=== PATIENT | female | born 1930 | race Caucasian/White ===

== ENCOUNTER → 2016-10-08 | Outpatient (CLI) | payer BC ==
[~2016-10-08] MED LIST: CHOL100027 PO; CYAN100020 PO; LEVO25TA5 PO; LNX125 PO; METF-384 PO; MULTTAB58 PO; TPRSR50 PO; XRL10 PO
[2016-10-09 05:56] LABS: ESTIMATED AVERAGE GLUCOSE 137 mg/dl; HA1C FLAG Normal (Normal)
== END | disposition home or self-care (01) ==
LOC: C.LABBC 14:14
PROVIDERS: ATTEND Internal Medicine Geriatric Medicine
DX: E03.9 Hypothyroidism, unspecified (principal); E11.29 Type 2 diabetes mellitus with other diabetic kidney complication

== ENCOUNTER → 2016-10-31 | Outpatient (CLI) | payer BC ==
[2016-10-31 11:15] LABS: BASO ABS # 0.08 K/uL (0-0.2); COMPLETE YES; EOS % 3.9 %; HEMATOCRIT 29.4 % (37-47); IG% 0.2 %; IMMATURE RETIC FRACTION 18.6 % (3.0-15.9); LYMPH % 41.4 %; LYMPH ABS # 3.44 K/uL (1.2-3.4); MEAN CELL VOLUME 89.4 fL (80-100); MEAN CORPUSCULAR HEMOGLOBIN 28.9 pg (25-34); MEAN CORPUSCULAR HGB CONC 32.3 g/dl (32-36); MEAN PLATELET VOLUME 8.8 fL (7.4-10.4); MONO % 14.6 %; NEUT % 38.9 %; PLATELET COUNT 179 K/uL (130-400); RED BLOOD COUNT 3.29 M/uL (4.2-5.4); RETHE 31.2 PG (28.2-36.6); WHITE BLOOD COUNT 8.31 K/uL (4.8-10.8)
[2016-10-31 11:23] LABS: BLOOD UREA NITROGEN 23 mg/dl (7-18); BUN/CREATININE RATIO 20.5 (10-20); CALCIUM 9.3 mg/dl (8.5-10.1); CARBON DIOXIDE 27 mmol/L (21-32); CHLORIDE 103 mmol/L (98-107); GLUCOSE 158 mg/dl (70-99); POTASSIUM 4.1 mmol/L (3.5-5.1); SODIUM 137 mmol/L (136-145)
[2016-10-31 12:05] LABS: FERRITIN 41.3 ng/ml (8.0-388.0)
[2016-11-03 12:37] LABS: FREE KAPPA 26.6 MG/L (3.3-19.4); FREE KAPPA/LAMBDA RATIO 0.36 (0.26-1.65); FREE LAMBDA 74.2 MG/L (5.7-26.3)
--- NOTE | 2016-11-04 13:42 | CODING QUERY MEDICAL NECESSITY ---
SUPPORTING DIAGNOSIS NEEDED A supporting diagnosis is required for the test/procedure performed on this patient in order for us to be reimbursed by the patient's insurance. Please provide a supporting diagnosis for the following test/procedure listed below next to the test name along with your signature. *If there is no additional diagnosis for this patient that would support the following test/procedure please document that below next to the test/procedure. Test(s)/Procedure(s) that require a supporting diagnosis: DOS 10/31 * Vitamin B12 DIAGNOSIS: Provider Signature: Date: Thank you Shira Barron Health Information Management Once completed, please kindly fax back to [phone] For questions please call [phone]
== END | disposition home or self-care (01) ==
LOC: C.LABBC 08:54
PROVIDERS: ATTEND Nurse Practitioner
DX: C85.10 Unspecified B-cell lymphoma, unspecified site (principal); E03.9 Hypothyroidism, unspecified; N18.9 Chronic kidney disease, unspecified; D51.9 Vitamin B12 deficiency anemia, unspecified

== ENCOUNTER → 2017-01-21 | Outpatient (CLI) | payer BC | LOC: C.LAB1850 16:36 | PROVIDERS: ATTEND Internal Medicine Geriatric Medicine | DX: E03.9 Hypothyroidism, unspecified (principal) ==

== ENCOUNTER → 2017-02-03 | Outpatient (CLI) | payer BC ==
[2017-02-03 10:51] LABS: BASO % 1.3 %; COMPLETE YES; EOS % 4.7 %; HEMATOCRIT 30.2 % (37-47); IG% 0.1 %; LYMPH % 43.8 %; LYMPH ABS # 3.38 K/uL (1.2-3.4); MEAN CELL VOLUME 94.1 fL (80-100); MEAN CORPUSCULAR HEMOGLOBIN 29.3 pg (25-34); MEAN CORPUSCULAR HGB CONC 31.1 g/dl (32-36); MEAN PLATELET VOLUME 8.7 fL (7.4-10.4); NEUT % 37.1 %; PLATELET COUNT 165 K/uL (130-400); RED BLOOD COUNT 3.21 M/uL (4.2-5.4); WHITE BLOOD COUNT 7.71 K/uL (4.8-10.8)
[2017-02-03 11:18] LABS: ALT/SGPT 13 U/L (12-78); AST/SGOT 12 U/L (15-37); BLOOD UREA NITROGEN 18 mg/dl (7-18); BUN/CREATININE RATIO 15.2 (10-20); CARBON DIOXIDE 26 mmol/L (21-32); CHLORIDE 105 mmol/L (98-107); GLUCOSE 171 mg/dl (70-99); POTASSIUM 4.5 mmol/L (3.5-5.1); SODIUM 140 mmol/L (136-145)
[2017-02-03 11:22] LABS: CALCIUM 9.3 mg/dl (8.5-10.1)
[2017-02-03 11:56] LABS: ALB/GLOB RATIO 0.5 (0.9-2); ALKALINE PHOSPHATASE 90 U/L (45-117)
[2017-02-06 05:36] LABS: ALBUMIN 3.2 G/DL (3.8-4.8); ALBUMIN % 32.73 %; ALPHA-2-GLOBULIN % 18.61 %; BETA GLOBULIN % 16.85 %; CREATININE UR 159 MG/DL (20-320); FREE KAPPA 29.8 MG/L (3.3-19.4); FREE KAPPA/LAMBDA RATIO 0.39 (0.26-1.65); FREE LAMBDA 76.6 MG/L (5.7-26.3); GAMMA GLOBULIN 0.9 G/DL (0.8-1.7); GAMMA GLOBULIN % 29.33 %; IMMUNOFIXATION IGA SERUM 94 MG/DL (81-463); IMMUNOFIXATION IGG SERUM 946 MG/DL (694-1618); IMMUNOFIXATION IGM SERUM 2175 MG/DL (48-271); MONOCLONAL PROTEIN BAND 1 1.6 G/DL (NOT DETECTED); MONOCLONAL PROTEIN BAND 2 0.3 G/DL (NOT DETECTED); TOTAL PROTEIN 7.6 G/DL (6.2-8.3)
--- NOTE | 2017-02-09 10:27 | CODING QUERY MEDICAL NECESSITY ---
SUPPORTING DIAGNOSIS NEEDED Yasir KIRKLAND, A supporting diagnosis is required for the test/procedure performed on this patient in order for us to be reimbursed by the patient's insurance. Please provide a supporting diagnosis for the following test/procedure listed below next to the test name along with your signature. *If there is no additional diagnosis for this patient that would support the following test/procedure please document that below next to the test/procedure. Test(s)/Procedure(s) that require a supporting diagnosis: * ([id number]) B12 VITAMIN LEVEL DIAGNOSIS: DATE OF SERVICE: 02/03/17 Provider Signature: Date: Thank you Justo Mckinnon Health Information Management Once completed, please kindly fax back to [phone] For questions please call [phone]
== END | disposition home or self-care (01) ==
LOC: C.LABBC 08:33
PROVIDERS: ATTEND Nurse Practitioner
DX: C85.10 Unspecified B-cell lymphoma, unspecified site (principal); D64.9 Anemia, unspecified

== ENCOUNTER → 2017-04-16 | Outpatient (CLI) | payer BC ==
[2017-04-16 17:07] LABS: BLOOD UREA NITROGEN 23 mg/dl (7-18); BUN/CREATININE RATIO 17.7 (10-20); CALCIUM 9.5 mg/dl (8.5-10.1); CARBON DIOXIDE 27 mmol/L (21-32); CHLORIDE 104 mmol/L (98-107); GLUCOSE 167 mg/dl (70-99); POTASSIUM 4.3 mmol/L (3.5-5.1); SODIUM 138 mmol/L (136-145)
[2017-04-16 17:10] LABS: HEMATOCRIT 30.3 % (37-47); MEAN CELL VOLUME 95.3 fL (80-100); MEAN CORPUSCULAR HEMOGLOBIN 29.2 pg (25-34); MEAN CORPUSCULAR HGB CONC 30.7 g/dl (32-36); MEAN PLATELET VOLUME 8.9 fL (7.4-10.4); PLATELET COUNT 180 K/uL (130-400); RED BLOOD COUNT 3.18 M/uL (4.2-5.4); WHITE BLOOD COUNT 9.57 K/uL (4.8-10.8)
[2017-04-16 17:13] LABS: URINE APPEARANCE CLEAR (CLEAR); URINE BILIRUBIN NEG (NEG); URINE COLOR DK YELLOW; URINE EPITHELIAL CELL AUTO 0-5 /lpf (0-5); URINE NITRITE POS (NEG); URINE SPECIFIC GRAVITY 1.024 (1.000-1.030); UROBILINOGEN NEG (NEG); ZZUR CULT IF INDIC CLEAN CATCH YES
[2017-04-16 17:23] LABS: MANUAL MICROSCOPIC REQUIRED? NO; REVIEW REQ? NO
[2017-04-16 18:09] LABS: BASO % 1.1 %; BASO ABS # 0.11 K/uL (0-0.2); COMPLETE YES; EOS % 2.7 %; IG% 0.2 %; LYMPH ABS # 4.88 K/uL (1.2-3.4); MONO % 14.1 %; NEUT % 30.9 %; ROULEAUX 1+
== END | disposition home or self-care (01) ==
LOC: C.LABBC 14:53
PROVIDERS: ATTEND Internal Medicine Geriatric Medicine
DX: I10 Essential (primary) hypertension (principal); E03.9 Hypothyroidism, unspecified; D64.9 Anemia, unspecified; R53.1 Weakness

== ENCOUNTER → 2017-05-12 | Outpatient (CLI) | payer BC ==
[2017-05-12 17:08] LABS: URINE APPEARANCE CLEAR (CLEAR); URINE BILIRUBIN NEG (NEG); URINE COLOR YELLOW; URINE NITRITE NEG (NEG); URINE PH 5.5 (4.5-7.5); URINE SPECIFIC GRAVITY 1.021 (1.000-1.030); UROBILINOGEN NEG (NEG)
[2017-05-12 17:09] LABS: MANUAL MICROSCOPIC REQUIRED? NO; REVIEW REQ? NO
[2017-05-13 06:22] LABS: ESTIMATED AVERAGE GLUCOSE 148 mg/dl; HA1C FLAG Normal (Normal)
== END | disposition home or self-care (01) ==
LOC: C.LABBC 13:36
PROVIDERS: ATTEND Physician Assistant
DX: Z00.00 Encounter for general adult medical examination without abnormal findings (principal); E11.9 Type 2 diabetes mellitus without complications; N39.0 Urinary tract infection, site not specified

== ENCOUNTER → 2017-08-10 | Outpatient (CLI) | payer BC ==
[2017-08-10 11:19] LABS: BASO % 1.1 %; BASO ABS # 0.09 K/uL (0-0.2); EOS % 4.8 %; HEMATOCRIT 28.3 % (37-47); IG% 0.2 %; LYMPH % 47.7 %; LYMPH ABS # 3.99 K/uL (1.2-3.4); MEAN CELL VOLUME 94.3 fL (80-100); MEAN CORPUSCULAR HEMOGLOBIN 29.3 pg (25-34); MEAN CORPUSCULAR HGB CONC 31.1 g/dl (32-36); MEAN PLATELET VOLUME 8.9 fL (7.4-10.4); MONO % 12.4 %; NEUT % 33.8 %; PLATELET COUNT 168 K/uL (130-400); WHITE BLOOD COUNT 8.36 K/uL (4.8-10.8)
[2017-08-10 11:54] LABS: ALT/SGPT 15 U/L (12-78); AST/SGOT 14 U/L (15-37); BLOOD UREA NITROGEN 18 mg/dl (7-18); BUN/CREATININE RATIO 15.6 (10-20); CALCIUM 9.1 mg/dl (8.5-10.1); CARBON DIOXIDE 28 mmol/L (21-32); CHLORIDE 100 mmol/L (98-107); CREATININE 1.18 mg/dl (0.60-1.20); GLUCOSE 152 mg/dl (70-99); POTASSIUM 4.3 mmol/L (3.5-5.1); SODIUM 136 mmol/L (136-145)
[2017-08-10 12:28] LABS: ALB/GLOB RATIO 0.5 (0.9-2); ALKALINE PHOSPHATASE 96 U/L (45-117)
[2017-08-10 13:04] LABS: COMPLETE YES
[2017-08-12 12:26] LABS: ALBUMIN 3.2 G/DL (3.8-4.8); FREE KAPPA 29.6 MG/L (3.3-19.4); FREE KAPPA/LAMBDA RATIO 0.31 (0.26-1.65); FREE LAMBDA 95.7 MG/L (5.7-26.3); GAMMA GLOBULIN 0.8 G/DL (0.8-1.7); IMMUNOFIXATION IGA SERUM 100 MG/DL (81-463); IMMUNOFIXATION IGG SERUM 894 MG/DL (694-1618); IMMUNOFIXATION IGM SERUM 2414 MG/DL (48-271); MONOCLONAL PROTEIN BAND 1 1.6 G/DL (NOT DETECTED); MONOCLONAL PROTEIN BAND 2 0.3 G/DL (NOT DETECTED); TOTAL PROTEIN 7.6 G/DL (6.2-8.3)
== END | disposition home or self-care (01) ==
LOC: C.LABBC 08:30
PROVIDERS: ATTEND Internal Medicine Hematology & Oncology
DX: C85.10 Unspecified B-cell lymphoma, unspecified site (principal)

== ENCOUNTER 2017-08-22 12:37 | Emergency (ER) | payer BC ==
[~2017-08-22] VITALS: Ht 170.2 cm; Wt 56.7 kg
[2017-08-22] MEDS ORDERED: SODIUM CHLORIDE 0.9% 1000ML 1,000 ML IV SCH ×2 (12:54→14:49)
[2017-08-22] MEDS ORDERED: SODIUM CHLORIDE 0.9% 1000ML 1,000 ML IV STA (12:54)
--- NOTE | 2017-08-22 12:55 | EMERGENCY ROOM VISIT NOTE ---
History Report prepared by Yadi: Hebert Salcedo Under the Supervision of: Dr. Dorian Raymundo M.D. First contact with patient: 12:29 Stated Complaint: STROKE SYMPTOMS History of Present Illness The patient is an 86 year old female who presents to the Emergency Room with complaints of constant stroke like symptoms occurring sometime within the last 16 hours. Per [id number], the patient's caregiver was not able to get the patient out of bed this morning 4 hours ago due to the patient's weakness. She notes that she is unsure when her symptoms began, but reports that her last known normal was last night. She states that the patient has weakness along the left side of her body, but reports that her symptoms having mildly improved. The patient denies any CP, SOB, chills, fever, and abdominal pain. She also denies that she did not fall recently. Per [id number], the patient has a history of atrial fibrillations and UTIs and is currently on Xarelto. Source of History: patient, family Onset: sometime within the last 16 hours Position: other (global) Quality: other (stroke like symptoms) Timing: constant Associated Symptoms: + weakness (along the left side of her body), No fevers , No chills, No chest pain, No SOB, No abdominal pain Review of Systems As above. All other systems reviewed were negative unless otherwise stated in history. At least 10 were reviewed Past Medical & Surgical Medical Problems: (1) Atrial fibrillation (2) Atrial fibrillation (3) Diab Luci Wo Compl, Type Ii Or Unspec Type, Not Uncntrld (4) Dizziness (5) Dizziness (6) Hyperlipidemia Nec/Nos (7) Hypertension Nos (8) Hypothyroidism Nos (9) IgM lambda paraproteinemia (10) Neck pain (11) Non-Hodgkin lymphoma (12) Paraproteinemia Nec (13) Pre-syncope (14) Psychosis Nos (15) SSS (sick sinus syndrome) (16) Stroke (17) Syncope (18) Syncope (19) UTI (urinary tract infection) Old medical records were reviewed. Nurse's notes were reviewed and I agree with. Family History Insignificant due to old age Social History Smoking Status: Never Smoker Drug Use: none Marital Status: Housing Status: lives alone Occupation Status: retired Current/Historical Medications Scheduled Cholecalciferol (Vitamin D 1000 Unit), 1,000 INTER.UNIT PO DAILY Cyanocobalamin (Vitamin B12), 1,000 MCG PO QAM Digoxin (Digoxin), 1 TAB PO QPM Levothyroxine Sodium (Levothyroxine Sodium), 1 TAB PO DAILYBB Metformin Hcl (Glucophage), 500 MG PO BID Metoprolol Succinate (Metoprolol Succinate ER), 50 MG PO BID Multiple Vitamin (Multivitamin), 1 TAB PO DAILY Rivaroxaban (Xarelto), 15 MG PO QPM Allergies Coded Allergies: Celecoxib (Verified Allergy, Unknown, Unknown, 08/13/16) Physical Exam Vital Signs Date Time Temp Pulse Resp B/P (MAP) Pulse Ox O2 Delivery O2 Flow Rate FiO2 08/22/17 14:08 65 17 155/60 96 Room Air 08/22/17 13:13 36.6 71 16 128/55 98 Room Air 08/22/17 13:13 98 Room Air 08/22/17 12:51 86 Physical Exam General: Non-ill appearing 86 year old female in no acute distress. HEENT: Normal cephalic atraumatic. Pupils are equal round and reactive to light. Sclerae anicteric. Extraocular movements are intact. Oropharynx is pink with moist mucous membranes. No swelling of the mouth lips or tongue.Baseline left eye weakness. Mild conjunctival injection with a surgical pupil on the left Neck: Supple with a midline trachea. No meningeal signs or stiffness, no JVD or bruits. No Stridor. Chest: Clear to auscultation bilaterally. No wheezes or rhonchi. No increased work of breathing. Heart: regular rate and rhythm. Abdomen: Soft nontender, nondistended without rebound guarding or rigidity. Extremities: No cyanosis clubbing or edema. No calf tenderness or assymetry. 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 Spine/Back. Non tender to palpation. No CVA tenderness Skin: Good turgor without rashes. Neurologic exam: Cranial nerves two through 12 are intact. Motor and sensation are intact and symmetrical throughout. Normal speech, alert and oriented x3. Medical Decision & Procedures ER Provider Diagnostic Interpretation: Radiology results as stated below per my review and radiologist interpretation: HEAD CT NONCONTRAST Findings: The paranasal sinuses and mastoid air cells are clear. The calvarium and skull base are intact. There is no mass, hematoma, midline shift, acute infarct. White matter hypodensity is nonspecific but suggestive of microvascular ischemic change. The ventricles and sulci demonstrate mild age-related involutional changes. Impression: No significant change compared to the prior study. No acute intracranial abnormality. Electronically signed by: Jose Moreno M.D. 08/22/2017 1:28 PM CHEST ONE VIEW PORTABLE FINDINGS: Left-sided dual-chamber pacemaker. The heart remains borderline enlarged. No pleural effusions. No pneumothorax. Mild diffuse interstitial thickening, unchanged. No new focal lung consolidations to suggest pneumonia. No evidence for pulmonary edema. IMPRESSION: Stable chronic changes as described above. No acute process within the chest. Electronically signed by: Jose Moreno M.D. 08/22/2017 2:24 PM Laboratory Results 08/22/17 13:18 Red Blood Count 2.78, Mean Corpuscular Volume 93.5, Mean Corpuscular Hemoglobin 29.1, Mean Corpuscular Hemoglobin Concent 31.2, Mean Platelet Volume 9.3, Neutrophils (%) (Auto) 51.0, Lymphocytes (%) (Auto) 36.9, Monocytes (%) (Auto) 10.2, Eosinophils (%) (Auto) 1.2, Basophils (%) (Auto) 0.6, Neutrophils # (Auto ) 3.93, Lymphocytes # (Auto) 2.85, Monocytes # (Auto) 0.79, Eosinophils # (Auto ) 0.09, Basophils # (Auto) 0.05 08/22/17 13:18 Test 08/22/17 13:18 08/22/17 14:05 White Blood Count 7.72 K/uL (4.8-10.8) Red Blood Count 2.78 M/uL (4.2-5.4) Hemoglobin 8.1 g/dL (12.0-16.0) Hematocrit 26.0 % (37-47) Mean Corpuscular Volume 93.5 fL (80-100) Mean Corpuscular Hemoglobin 29.1 pg (25-34) Mean Corpuscular Hemoglobin Concent 31.2 g/dl (32-36) Platelet Count 151 K/uL (130-400) Mean Platelet Volume 9.3 fL (7.4-10.4) Neutrophils (%) (Auto) 51.0 % Lymphocytes (%) (Auto) 36.9 % Monocytes (%) (Auto) 10.2 % Eosinophils (%) (Auto) 1.2 % Basophils (%) (Auto) 0.6 % Neutrophils # (Auto) 3.93 K/uL (1.4-6.5) Lymphocytes # (Auto) 2.85 K/uL (1.2-3.4) Monocytes # (Auto) 0.79 K/uL (0.11-0.59) Eosinophils # (Auto) 0.09 K/uL (0-0.5) Basophils # (Auto) 0.05 K/uL (0-0.2) RDW Standard Deviation 59.0 fL (36.4-46.3) RDW Coefficient of Variation 17.3 % (11.5-14.5) Immature Granulocyte % (Auto) 0.1 % Immature Granulocyte # (Auto) 0.01 K/uL (0.00-0.02) Red Blood Cell Morphology Unremarkable Anion Gap 3.0 mmol/L (3-11) Est Creatinine Clear Calc Drug Dose 31.9 ml/min Estimated GFR () 52.5 Estimated GFR (Non- 45.3 BUN/Creatinine Ratio 18.9 (10-20) Calcium Level 8.7 mg/dl (8.5-10.1) Magnesium Level 2.3 mg/dl (1.8-2.4) Total Creatine Kinase 186 U/L (26-192) Creatine Kinase MB 0.8 ng/ml (0.5-3.6) Creatine Kinase MB Ratio 0.4 (0-3.0) Troponin I 0.021 ng/ml (0-0.045) Digoxin Level 0.9 ng/ml (0.8-2.0) Urine Color YELLOW Urine Appearance CLEAR (CLEAR) Urine pH 7.0 (4.5-7.5) Urine Specific [place] 1.022 (1.000-1.030) Urine Protein NEG (NEG) Urine Glucose (UA) NEG (NEG) Urine Ketones NEG (NEG) Urine Occult Blood NEG (NEG) Urine Nitrite NEG (NEG) Urine Bilirubin NEG (NEG) Urine Urobilinogen NEG (NEG) Urine Leukocyte Esterase NEG (NEG) Laboratory studies as stated above per my review. Medications Administered Medications (Trade) Dose Ordered Sig/Marija Route Start Time Stop Time Status Last Admin Dose Admin Sodium Chloride 1,000 ml @ 999 mls/hr Q1H1M STAT IV 08/22/17 12:54 08/22/17 13:54 DC 08/22/17 12:54 999 MLS/HR ECG Indication: weakness Rate (beats per minute): 62 Rhythm: other (atrial paced) Findings: RBBB, other (lateral T wave inversions) Comparison ECG Date: 08/13/2016 Change: Atrial pace present but otherwise no change ED Course 1246: Past medical records reviewed. The patient was evaluated in room A11, and a complete history and physical examination were performed. 1254: Sodium Chloride 1000 ml @ 999 mls/hr IV 1329: I reevaluated and updated the patient. She is comfortable. I spoke to the family members. I am waiting to get her blood work back. 1334: Upon reevaluation, the patient is stable. I discussed the results and treatment plan with the patient. She and her family verbalized agreement of the treatment plan. The patient will be evaluated for further management. 1415: I spoke to Dr. Rivera. 1433: I reevaluated and updated the patient. She denies any current chest pain and is moving her left side much better. 1436: Upon reevaluation, the patient is stable. I discussed the results and treatment plan with the patient. She and her family verbalized agreement of the treatment plan. The patient will be evaluated for further management. Medical Decision Differential diagnoses include stroke, intracranial hemorrhage, infract, dehydration, and arrhythmia. This patient comes in as described above. She was brought in by EMS. She was last seen normal last evening. When her caregiver went to try to get her up this morning, she was sleepy and weak at 8:30 in the morning. On route, she was noted to be weak on the left side which is new she does have baseline left eye weakness. She is on Xarelto for A. fib. She has had no fall or any recent illness. No fever or chills. IV access established and blood work was obtained. Her blood sugar was normal and she is therefore not hypoglycemic. I did a scant CAT scan of her head. It was unremarkable is no hemorrhage. At this point, she is not a TPA candidate as the symptoms have been going on for almost 4-1/2 hours at a minimum. Her last well known was last evening. Additionally she is on Xarelto and has multiple other medical problems. Her care was expedited to try to find the etiology for her symptoms. She was reassessed frequently. EKG does not suggest acute coronary syndrome or arrhythmia. CAT scan of her head was unremarkable. She has baseline anemia on a blood work. There is no acute electrolyte or metabolic abnormalities. At one point, she complained of pain in her neck and possibly chest so I did also order a chest CT and neck CTs rule out a vascular issue. Clinically, she seems to be doing better with less weakness of the arm and the leg. Her urinalysis is pending but the urine grossly does not appear to be infected. I do think she needs to be admitted for further treatment and evaluation and have consulted Dr. Steele to see the patient in the ER Medication Reconcilliation Current Medication List: was personally reviewed by me Blood Pressure Screening Patient's blood pressure: Elevated blood pressure (mildly elevated) Being admitted and can have further evaluation of her blood pressure. Consults Time Called: 1332 Consulting Physician: Dr. Rivera - [facility] Returned Call: [phone] Discussed the patient's case. Additional Consults: Time Called: 1433 Consulted Physician: Dr. Steele - [facility] [place] Returned Call: [phone] Additional Comments: Discussed the patient's case. The patient will be evaluated for further management. Impression Primary Impression: CVA (cerebral vascular accident) Additional Impression: Left-sided weakness Scribe Attestation The scribe's documentation has been prepared under my direction and personally reviewed by me in its entirety. I confirm that the note above accurately reflects all work, treatment, procedures, and medical decision making performed by me. Departure Information Dispostion Being Evaluated By Hospitalist Asa Hylton M.D. (PCP) Problem Qualifiers
[2017-08-22 13:13] VITALS: TEMP 36.6; O2SAT 98; Ht 170.2 cm; Wt 56.7 kg
--- NOTE | 2017-08-22 13:30 | DIAGNOSTIC IMAGING REPORT ---
HEAD CT NONCONTRAST CT DOSE: 614.27 mGy.cm HISTORY: Stroke TECHNIQUE: Multiaxial CT images of the head were performed without the use of intravenous contrast. Automated exposure control was utilized for this study. A dose lowering technique was utilized adhering to the principles of ALARA. Comparison: Head CT 03/13/2015. Findings: The paranasal sinuses and mastoid air cells are clear. The calvarium and skull base are intact. There is no mass, hematoma, midline shift, acute infarct. White matter hypodensity is nonspecific but suggestive of microvascular ischemic change. The ventricles and sulci demonstrate mild age-related involutional changes. Impression: No significant change compared to the prior study. No acute intracranial abnormality. Electronically signed by: Jose Moreno M.D. 08/22/2017 1:28 PM Dictated Date/Time: 08/22/2017 1:26 PM
[2017-08-22 13:36] LABS: BASO % 0.6 %; BASO ABS # 0.05 K/uL (0-0.2); EOS % 1.2 %; IG% 0.1 %; LYMPH % 36.9 %; LYMPH ABS # 2.85 K/uL (1.2-3.4); MEAN CELL VOLUME 93.5 fL (80-100); MEAN CORPUSCULAR HEMOGLOBIN 29.1 pg (25-34); MEAN CORPUSCULAR HGB CONC 31.2 g/dl (32-36); MEAN PLATELET VOLUME 9.3 fL (7.4-10.4); MONO % 10.2 %; PLATELET COUNT 151 K/uL (130-400); RED BLOOD COUNT 2.78 M/uL (4.2-5.4); WHITE BLOOD COUNT 7.72 K/uL (4.8-10.8)
[2017-08-22] MEDS ORDERED: LNX125 PO (13:38)
[2017-08-22] MEDS ORDERED: LEVO75TA5 PO (13:38)
[2017-08-22 13:57] LABS: BUN/CREATININE RATIO 18.9 (10-20); CALCIUM 8.7 mg/dl (8.5-10.1); CREATININE 1.09 mg/dl (0.60-1.20); MAGNESIUM 2.3 mg/dl (1.8-2.4); POTASSIUM 4.8 mmol/L (3.5-5.1)
[2017-08-22 14:02] LABS: CKMB/CK RATIO 0.4 (0-3.0)
[2017-08-22 14:04] LABS: COMPLETE YES
--- NOTE | 2017-08-22 14:25 | DIAGNOSTIC IMAGING REPORT ---
CHEST ONE VIEW PORTABLE HISTORY: Atypical CHEST PAIN COMPARISON: Chest 08/13/2016. FINDINGS: Left-sided dual-chamber pacemaker. The heart remains borderline enlarged. No pleural effusions. No pneumothorax. Mild diffuse interstitial thickening, unchanged. No new focal lung consolidations to suggest pneumonia. No evidence for pulmonary edema. IMPRESSION: Stable chronic changes as described above. No acute process within the chest. Electronically signed by: Jose Moreno M.D. 08/22/2017 2:24 PM Dictated Date/Time: 08/22/2017 2:23 PM
[2017-08-22] MEDS ORDERED: OPTIRAY 320 IV PRN (14:30)
[2017-08-22 14:34] LABS: URINE APPEARANCE CLEAR (CLEAR); URINE BILIRUBIN NEG (NEG); URINE COLOR YELLOW; URINE NITRITE NEG (NEG); URINE SPECIFIC GRAVITY 1.022 (1.000-1.030); UROBILINOGEN NEG (NEG)
[2017-08-22 14:43] LABS: MANUAL MICROSCOPIC REQUIRED? NO; REVIEW REQ? NO
[2017-08-22] MEDS ORDERED: PHARMACIST DISCHARGE MED REC CONSULT PRN (15:00)
[2017-08-22] MEDS ORDERED: ACETAMINOPHEN 325 MG TAB PO PRN (15:00)
[2017-08-22] MEDS ORDERED: ONDANSETRON INJ 2 MG/ML 2 ML VIAL IV PRN (15:00)
--- NOTE | 2017-08-22 15:47 | DIAGNOSTIC IMAGING REPORT ---
NECK CTA HISTORY: Stroke symptoms. TECHNIQUE: Multiaxial CT images of the neck were performed following the intravenous administration of contrast to evaluate the major cervical vessels. Maximum intensity projection images were also obtained. All measurements were calculated based on NASCET criteria. A dose lowering technique was utilized adhering to the principles of ALARA. COMPARISON STUDY: Neck CTA 01/15/2015. FINDINGS: There is evidence for a type A dissection of the aorta. Both lumens opacify within the aortic arch. The dissection extends into the right brachiocephalic artery. The dissection within the right brachiocephalic artery is thrombosed resulting in severe stenosis of greater than 90% of the brachiocephalic artery. Moderate left and mild right carotid bifurcation calcification. However, there is no significant stenosis, occlusion, aneurysm, or dissection within the bilateral common or internal carotid arteries. The subclavian and bilateral vertebral arteries are patent. Left-sided pacemaker. IMPRESSION: 1. Partial visualization of a type A aortic dissection. 2. The dissection extends into the right brachiocephalic artery. This segment of dissection is thrombosed and results in high-grade/critical stenosis of the brachiocephalic artery of greater than 90%. 3. No significant stenosis, occlusion, or dissection within the carotid or vertebral arteries. 4. These finds were discussed with Dr. Robles at 3:43 PM on 08/22/2017. Electronically signed by: Jose Moreno M.D. 08/22/2017 3:46 PM Dictated Date/Time: 08/22/2017 3:36 PM
[2017-08-22] MEDS ORDERED: NiCARDipine IV 25 MG in SODIUM CHLORIDE 0.9% 250ML 240 ML IV STA (15:51)
--- NOTE | 2017-08-22 15:59 | DIAGNOSTIC IMAGING REPORT ---
CHEST, ABDOMEN, PELVIS CTA for AORTIC DISSECTION CT DOSE: 1243.03 mGy.cm HISTORY: TECHNIQUE: Multiaxial CT images of the chest, abdomen, pelvis were performed both before and after the intravenous administration of contrast to evaluate the aorta. Maximal intensity projection images were also obtained. A dose lowering technique was utilized adhering to the principles of ALARA. COMPARISON STUDY: None. FINDINGS: There is a type a aortic dissection extending throughout the aorta thoracic aorta and into the abdominal aorta. The dissection terminates inferior to the renal arteries.. This extends into the brachiocephalic artery. This area is thrombosed within the right brachiocephalic artery and results in critical stenosis of greater than 90%. The true lumen opacifies both coronary arteries at this time. Both lumens of the dissection are opacified. The true lumen also perfuses the celiac, superior mesenteric, and bilateral renal arteries. Tortuous descending thoracic aorta. Trace pericardial and left pleural fluid. These are difficult to characterize but favor simple fluid rather than hemorrhage at this time. Left-sided pacemaker. Moderate hiatus hernia. Calcified mediastinal and left hilar lymph nodes. No pneumothorax. Calcified granuloma within the left lower lobe. Diffuse interstitial thickening which is likely chronic. The liver, gallbladder, pancreas, and adrenal glands are unremarkable. No hydronephrosis. A few subcentimeter bilateral renal hypodense lesions are too small to characterize. Calcified granuloma seen within the spleen. Abnormal ill-defined soft tissue nodules within the retroperitoneum dominant nodular density is seen on image 103 of 466 and measures 22 x 13 mm. Similar-appearing 22 x 9 mm soft tissue nodule anterior to the aorta. The bladder is decompressed. The uterus and bilateral adnexa are within normal limits. Colonic diverticulosis. No bowel wall thickening or obstruction. Normal appendix. IMPRESSION: 1. 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 2. Trace pericardial fluid. These are difficult to characterize due to the small size but favor simple fluid rather than hemorrhage at this time. 3. A few ill-defined soft tissue nodules within the retroperitoneum which may represent abnormal lymph nodes. This could be due to a neoplastic process such as a lymphoma. 4. Additional findings as described above. 5. These findings were discussed with Dr. Robles at 3:43 PM on 08/22/2017. Electronically signed by: Jose Moreno M.D. 08/22/2017 3:57 PM Dictated Date/Time: 08/22/2017 3:46 PM
[2017-08-22] MEDS ORDERED: CIPROFLOXACIN HCL 3.5 GM TUBE OPL SCH (16:00)
[2017-08-22] MEDS ORDERED: INSULIN ASPART 100 UNITS/ML 3 ML PEN SC SCH (16:00)
[2017-08-22 16:22] VITALS: BP 144/56; PULSE 60; O2SAT 99
[2017-08-22] MEDS ORDERED: CLOPIDOGREL BISULFATE 75 MG TAB PO STA (16:32)
--- NOTE | 2017-08-22 16:43 | EMERGENCY ROOM VISIT NOTE ---
History Chief Complaint: STROKE SYMPTOMS Stated Complaint: STROKE SYMPTOMS Nursing Triage Summary: Patient found this morning with left side flaccid. Last known well was last nigth at 1999. Upon presentation patient did have movement with extreme weakness to the left side. Patient alert and oriented. History of Present Illness The patient is a 86 year old female who presents to the Emergency Room with complaints of left-sided weakness and neck pain. I received the patient in signout at change of shift. The patient was sent for CAT scan of the head originally and was being worked up for CTA. There is concern that the patient may have a dissection therefore she was sent for CT of the chest abdomen and pelvis. This is showing a type a dissection. I will note that the patient is on Xarelto for atrial fibrillation and her last dose of Xarelto was last evening. Her hemoglobin here is 8.1. I had a lengthy talk with the patient and family over my concerns about the high mortality and morbidity for this patient. After discussing it with the patient's family they wished to go to [place] and based on the patient's insurance that is where she should go. Review of Systems See HPI for pertinent positives & negatives. A total of 10 systems reviewed and were otherwise negative. Past Medical/Surgical History Medical Problems: (1) Atrial fibrillation (2) Atrial fibrillation (3) Diab Luci Wo Compl, Type Ii Or Unspec Type, Not Uncntrld (4) Dizziness (5) Dizziness (6) Hyperlipidemia Nec/Nos (7) Hypertension Nos (8) Hypothyroidism Nos (9) IgM lambda paraproteinemia (10) Neck pain (11) Non-Hodgkin lymphoma (12) Paraproteinemia Nec (13) Pre-syncope (14) Psychosis Nos (15) SSS (sick sinus syndrome) (16) Stroke (17) Syncope (18) Syncope (19) UTI (urinary tract infection) Family History Insignificant due to old age Social History Smoking Status: Never Smoker Drug Use: none Marital Status: Housing Status: lives alone Occupation Status: retired Current/Historical Medications Scheduled Cholecalciferol (Vitamin D 1000 Unit), 1,000 INTER.UNIT PO DAILY Cyanocobalamin (Vitamin B12), 1,000 MCG PO QAM Digoxin (Digoxin), 1 TAB PO QPM Levothyroxine Sodium (Levothyroxine Sodium), 1 TAB PO DAILYBB Metformin Hcl (Glucophage), 500 MG PO BID Metoprolol Succinate (Metoprolol Succinate ER), 50 MG PO BID Multiple Vitamin (Multivitamin), 1 TAB PO DAILY Rivaroxaban (Xarelto), 15 MG PO QPM Physical Exam Vital Signs Date Time Temp Pulse Resp B/P (MAP) Pulse Ox O2 Delivery O2 Flow Rate FiO2 08/22/17 16:22 60 144/56 99 Room Air 08/22/17 16:19 60 141/57 99 Room Air 08/22/17 16:18 60 149/57 98 Room Air 08/22/17 16:07 159/56 08/22/17 15:59 60 19 114/70 96 Room Air 08/22/17 15:40 110/62 08/22/17 15:39 61 17 159/49 97 Room Air 08/22/17 14:08 65 17 155/60 96 Room Air 08/22/17 13:13 36.6 71 16 128/55 98 Room Air 08/22/17 13:13 98 Room Air 08/22/17 12:51 86 Physical Exam GENERAL: Patient is a pale-appearing well-nourished female HEAD: Normocephalic atraumatic EYES: Ocular movements intact pupils equal and react to light OROPHARYNX mucous membranes are moist no exudates present no erythema or edema present NECK: Supple no nuchal rigidity CHEST: Good equal expansion LUNGS: Clear and equal to auscultation CARDIAC: Normal S1 and S2, loud III/ systolic murmur ABDOMEN: Soft nontender no guarding BACK: No CVA tenderness EXTREMITIES: 3/5 strength left arm, left leg NEURO: Patient is following commands is answering questions appropriately. Alert and oriented x3 Medical Decision & Procedures ER Provider Diagnostic Interpretation: CHEST, ABDOMEN, PELVIS CTA for AORTIC DISSECTION CT DOSE: 1243.03 mGy.cm HISTORY: TECHNIQUE: Multiaxial CT images of the chest, abdomen, pelvis were performed both before and after the intravenous administration of contrast to evaluate the aorta. Maximal intensity projection images were also obtained. A dose lowering technique was utilized adhering to the principles of ALARA. COMPARISON STUDY: None. FINDINGS: There is a type a aortic dissection extending throughout the aorta thoracic aorta and into the abdominal aorta. The dissection terminates inferior to the renal arteries.. This extends into the brachiocephalic artery. This area is thrombosed within the right brachiocephalic artery and results in critical stenosis of greater than 90%. The true lumen opacifies both coronary arteries at this time. Both lumens of the dissection are opacified. The true lumen also perfuses the celiac, superior mesenteric, and bilateral renal arteries. Tortuous descending thoracic aorta. Trace pericardial and left pleural fluid. These are difficult to characterize but favor simple fluid rather than hemorrhage at this time. Left-sided pacemaker. Moderate hiatus hernia. Calcified mediastinal and left hilar lymph nodes. No pneumothorax. Calcified granuloma within the left lower lobe. Diffuse interstitial thickening which is likely chronic. The liver, gallbladder, pancreas, and adrenal glands are unremarkable. No hydronephrosis. A few subcentimeter bilateral renal hypodense lesions are too small to characterize. Calcified granuloma seen within the spleen. Abnormal ill-defined soft tissue nodules within the retroperitoneum dominant nodular density is seen on image 103 of 466 and measures 22 x 13 mm. Similar-appearing 22 x 9 mm soft tissue nodule anterior to the aorta. The bladder is decompressed. The uterus and bilateral adnexa are within normal limits. Colonic diverticulosis. No bowel wall thickening or obstruction. Normal appendix. IMPRESSION: 1. 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 2. Trace pericardial fluid. These are difficult to characterize due to the small size but favor simple fluid rather than hemorrhage at this time. 3. A few ill-defined soft tissue nodules within the retroperitoneum which may represent abnormal lymph nodes. This could be due to a neoplastic process such as a lymphoma. 4. Additional findings as described above. 5. These findings were discussed with Dr. Robles at 3:43 PM on 08/22/2017. Electronically signed by: Jose Moreno M.D. 08/22/2017 3:57 PM Dictated Date/Time: 08/22/2017 3:46 PM The status of this report is Signed. Draft = Not yet reviewed or approved by Radiologist. Signed = Reviewed and approved by Radiologist. <AttendingPhy></AttendingPhy> <FamilyPhy>Asa Chavez M.D.</FamilyPhy> < PrimaryPhy>Asa Chavez M.D.</PrimaryPhy> <UnitNumber>[id number]</UnitNumber > <VisitNumber>[id number] Laboratory Results 08/22/17 13:18 Red Blood Count 2.78, Mean Corpuscular Volume 93.5, Mean Corpuscular Hemoglobin 29.1, Mean Corpuscular Hemoglobin Concent 31.2, Mean Platelet Volume 9.3, Neutrophils (%) (Auto) 51.0, Lymphocytes (%) (Auto) 36.9, Monocytes (%) (Auto) 10.2, Eosinophils (%) (Auto) 1.2, Basophils (%) (Auto) 0.6, Neutrophils # (Auto ) 3.93, Lymphocytes # (Auto) 2.85, Monocytes # (Auto) 0.79, Eosinophils # (Auto ) 0.09, Basophils # (Auto) 0.05 08/22/17 13:18 Test 08/22/17 12:56 08/22/17 13:18 08/22/17 14:05 Bedside Glucose 123 mg/dl (70-90) White Blood Count 7.72 K/uL (4.8-10.8) Red Blood Count 2.78 M/uL (4.2-5.4) Hemoglobin 8.1 g/dL (12.0-16.0) Hematocrit 26.0 % (37-47) Mean Corpuscular Volume 93.5 fL (80-100) Mean Corpuscular Hemoglobin 29.1 pg (25-34) Mean Corpuscular Hemoglobin Concent 31.2 g/dl (32-36) Platelet Count 151 K/uL (130-400) Mean Platelet Volume 9.3 fL (7.4-10.4) Neutrophils (%) (Auto) 51.0 % Lymphocytes (%) (Auto) 36.9 % Monocytes (%) (Auto) 10.2 % Eosinophils (%) (Auto) 1.2 % Basophils (%) (Auto) 0.6 % Neutrophils # (Auto) 3.93 K/uL (1.4-6.5) Lymphocytes # (Auto) 2.85 K/uL (1.2-3.4) Monocytes # (Auto) 0.79 K/uL (0.11-0.59) Eosinophils # (Auto) 0.09 K/uL (0-0.5) Basophils # (Auto) 0.05 K/uL (0-0.2) RDW Standard Deviation 59.0 fL (36.4-46.3) RDW Coefficient of Variation 17.3 % (11.5-14.5) Immature Granulocyte % (Auto) 0.1 % Immature Granulocyte # (Auto) 0.01 K/uL (0.00-0.02) Red Blood Cell Morphology Unremarkable Anion Gap 3.0 mmol/L (3-11) Est Creatinine Clear Calc Drug Dose 31.9 ml/min Estimated GFR () 52.5 Estimated GFR (Non- 45.3 BUN/Creatinine Ratio 18.9 (10-20) Calcium Level 8.7 mg/dl (8.5-10.1) Magnesium Level 2.3 mg/dl (1.8-2.4) Total Creatine Kinase 186 U/L (26-192) Creatine Kinase MB 0.8 ng/ml (0.5-3.6) Creatine Kinase MB Ratio 0.4 (0-3.0) Troponin I 0.021 ng/ml (0-0.045) Digoxin Level 0.9 ng/ml (0.8-2.0) Urine Color YELLOW Urine Appearance CLEAR (CLEAR) Urine pH 7.0 (4.5-7.5) Urine Specific [place] 1.022 (1.000-1.030) Urine Protein NEG (NEG) Urine Glucose (UA) NEG (NEG) Urine Ketones NEG (NEG) Urine Occult Blood NEG (NEG) Urine Nitrite NEG (NEG) Urine Bilirubin NEG (NEG) Urine Urobilinogen NEG (NEG) Urine Leukocyte Esterase NEG (NEG) Medications Administered Medications (Trade) Dose Ordered Sig/Marija Route Start Time Stop Time Status Last Admin Dose Admin Sodium Chloride 1,000 ml @ 999 mls/hr Q1H1M STAT IV 08/22/17 12:54 08/22/17 13:54 DC 08/22/17 12:54 999 MLS/HR Nicardipine HCl 25 mg/Sodium Chloride 250 ml @ 0 mls/hr Q0M STAT IV 08/22/17 15:51 08/22/17 15:52 DC 08/22/17 16:18 50 MLS/HR Medical Decision This is an 86-year-old female who presents emergency department complaining of neck pain as well as left-sided weakness. She was sent for a CTA of the chest abdomen and pelvis over concerns for dissection. There is a type a dissection present. After consulting the patient's insurance as well as her family they wished to go to [facility]. I called down to [place] and spoke with the vascular surgeon on-call who readily accepted the patient. The patient will be transferred via [facility]. She was started on nicardipine drip here in the emergency department. Medication Reconcilliation Current Medication List: was personally reviewed by me Blood Pressure Screening Blood pressure disposition: Elevated BP felt to be situational Impression Primary Impression: Left-sided weakness Critical Care I have personally spent greater than 30 minutes of critical care time in the direct management of this patient. This includes bedside care, interpretation of diagnostic studies, and testing, discussion with consultants, patient, and family members, and other required patient management activities. This 30 minutes is in excess of all separately billable procedures. Departure Information Dispostion Being Evaluated By Hospitalist Referrals Asa Chavez M.D. (PCP) Patient Instructions My [facility]
[2017-08-22] MEDS ORDERED: METOPROLOL SUCC 50MG EXT REL TAB PO SCH (21:00)
[2017-08-22] MEDS ORDERED: DIGOXIN 0.125 MG TAB PO SCH (21:00)
[2017-08-22] MEDS ORDERED: RIVAROXABAN 10 MG TAB PO SCH (21:00)
[2017-08-23] MEDS ORDERED: LEVOTHYROXINE 75 MCG TAB PO SCH (07:00)
[2017-08-23] MEDS ORDERED: CYANOCOBALAMIN 1000 MCG PO SCH (09:00)
[2017-08-23] MEDS ORDERED: CLOPIDOGREL BISULFATE 75 MG TAB PO SCH (09:00)
[2017-08-23] MEDS ORDERED: CHOLECALCIFEROL 1000 INTER.UNIT TAB PO SCH (09:00)
[2017-08-24 06:51] LABS: ESTIMATED AVERAGE GLUCOSE 143 mg/dl; HA1C FLAG Normal (Normal)
== END 2017-08-22 16:30 | disposition short-term general hospital (02) ==
LOC: EDBD 12:37 → C.EDA 12:42
DX: I71.03 Dissection of thoracoabdominal aorta (principal); D64.9 Anemia, unspecified; M54.2 Cervicalgia; I48.91 Unspecified atrial fibrillation; E11.9 Type 2 diabetes mellitus without complications; E78.5 Hyperlipidemia, unspecified; I10 Essential (primary) hypertension; E03.9 Hypothyroidism, unspecified

== ENCOUNTER → 2017-09-17 | Outpatient (CLI) | payer BC ==
[~2017-09-17] MED LIST changes: +AMLO-114 PO; +ATOR-24 PO; +CALC600T9 PO; +FURO-85 PO; -LEVO25TA5 PO; +LEVO75TA5 PO; +METO25TA56 PO; +MIRT15TA2 PO
[2017-09-17 14:24] LABS: BASO % 0.8 %; BASO ABS # 0.07 K/uL (0-0.2); EOS % 6.1 %; EOS ABS # 0.52 K/uL (0-0.5); HEMATOCRIT 24.8 % (37-47); HEMOGLOBIN 7.8 g/dL (12.0-16.0); IG# 0.02 K/uL (0.00-0.02); LYMPH % 39.9 %; LYMPH ABS # 3.41 K/uL (1.2-3.4); MEAN CELL VOLUME 96.5 fL (80-100); MEAN CORPUSCULAR HEMOGLOBIN 30.4 pg (25-34); MEAN CORPUSCULAR HGB CONC 31.5 g/dl (32-36); MEAN PLATELET VOLUME 9.1 fL (7.4-10.4); MONO % 17.2 %; MONO ABS # 1.47 K/uL (0.11-0.59); NEUT % 35.8 %; NEUT ABS # 3.06 K/uL (1.4-6.5); PLATELET COUNT 143 K/uL (130-400); RED CELL DISTRIBUTION WIDTH CV 19.1 % (11.5-14.5); RED CELL DISTRIBUTION WIDTH SD 66.9 fL (36.4-46.3); WHITE BLOOD COUNT 8.55 K/uL (4.8-10.8)
[2017-09-17 14:31] LABS: BLOOD UREA NITROGEN 27 mg/dl (7-18); CALCIUM 8.7 mg/dl (8.5-10.1); CARBON DIOXIDE 28 mmol/L (21-32); CREATININE 1.45 mg/dl (0.60-1.20); GLUCOSE 110 mg/dl (70-99); POTASSIUM 4.4 mmol/L (3.5-5.1); SODIUM 136 mmol/L (136-145)
== END | disposition home or self-care (01) ==
LOC: C.LABSPEC 13:42
PROVIDERS: ATTEND Physician Assistant Medical
DX: N18.9 Chronic kidney disease, unspecified (principal); D64.9 Anemia, unspecified

== ENCOUNTER → 2017-09-17 | Outpatient (CLI) | payer BC ==
[~2017-09-17] MED LIST changes: +FRRS300 PO; +HLD.5 PO; +LXP10 PO; +MRLP17 PO; +PRT40 PO; +SENN-61 PO
--- NOTE | 2017-09-29 09:20 | CODING QUERY NO DIAGNOSIS ---
: 1930 TREATMENT RENDERED WITHOUT A DIAGNOSIS To promote full compliance with coding requirements relating to patient care, physician participation is requested in all cases of automotive project engineer uncertainty. Please assist us with providing a diagnosis/symptom for the test(s) below: A diagnosis/symptom was not documented on your Order. A valid diagnosis/symptom is required to bill all insurances. Please remember that we are unable to code a diagnosis of rule out, probable, possible, questionable, or suspected. Please provide original physician order. Tests that require a diagnosis: Date of Service: 09/17/17 * Type/Screen Profile DIAGNOSIS: Provider Signature: Date: Thank you Elizabeth Rolon Health Information Management Once completed, please kindly fax back to [phone] For questions please call [phone]
== END | disposition home or self-care (01) ==
LOC: C.LAB 19:36
PROVIDERS: ATTEND Psychiatry & Neurology Neurology
DX: I67.89 Other cerebrovascular disease (principal)

== ENCOUNTER 2017-09-18 05:46 | Inpatient (IN) | payer BC, OTHER ==
[~2017-09-18] VITALS: Ht 167.6 cm; Wt 61.0 kg
[2017-09-18] VITALS (9 sets, daily range): BP systolic 112–144; BP diastolic 48–69; PULSE 60–85; TEMP 36.4–37; O2SAT 90–95; BMI 23.5
[~2017-09-18 05:46] MED LIST changes: -AMLO-114 PO; -ATOR-24 PO; -CALC600T9 PO; -FRRS300 PO; -FURO-85 PO; -HLD.5 PO; -LXP10 PO; -METO25TA56 PO; -MIRT15TA2 PO; -MRLP17 PO; -PRT40 PO; -SENN-61 PO
--- NOTE | 2017-09-18 06:10 | EMERGENCY ROOM VISIT NOTE ---
History Report prepared by Yadi: Hebert Salcedo Under the Supervision of: Dr. Francisco Bearden M.D. First contact with patient: 05:56 Chief Complaint: WEAKNESS Stated Complaint: WEAKNESS History of Present Illness The patient is an 86 year old female who presents to the Emergency Room with complaints of constant weakness beginning today. Per son, the patient has been recently anemic, for which she was supposed to have a transfusion this morning. He notes that the patient slept for a few hours last night, but was very difficult to wake up today. He reports that the patient appeared to be confused and had no strength. He states that the patient has also had low hemoglobin. The patient notes that she feels "foggy," and denies any CP, abdominal pain, headache, and black stool. She reports that she had surgery for a dissecting aorta a month ago and does not use a blood thinner. HPI limited secondary to patient's somnolence and son's limited knowledge. On Daughter's arrival further information. Restarted Xarelto 4 days ago for afib. She has been having gradual weakness since d/c from [facility] associated with worsening anemia. plan was to have transfusion this morning but as evening went on patient with worsening weakness to the point where can't even get up. Associated with sleepiness. No falls nor worsening of left sided weakness. Source of History: patient, family (son) History Limited By: other (patient's somnolence and son's limited knowledge) Onset: today Position: other (global) Timing: constant Associated Symptoms: No headache, No chest pain, No abdominal pain Note: Per son, the patient appeared confused, did not have any strength, and had low hemoglobin levels. The patient states that she feels "foggy." She denies any black stool. Review of Systems ROS limited secondary to patient's somnolence and son's limited knowledge. Past Medical & Surgical Medical Problems: (1) Atrial fibrillation (2) Atrial fibrillation (3) Diab Luci Wo Compl, Type Ii Or Unspec Type, Not Uncntrld (4) Dizziness (5) Dizziness (6) Hyperlipidemia Nec/Nos (7) Hypertension Nos (8) Hypothyroidism Nos (9) IgM lambda paraproteinemia (10) Neck pain (11) Non-Hodgkin lymphoma (12) Paraproteinemia Nec (13) Pre-syncope (14) Psychosis Nos (15) SSS (sick sinus syndrome) (16) Stroke (17) Syncope (18) Syncope (19) UTI (urinary tract infection) Surgical Problems: (1) H/O heart surgery Family History Insignificant due to old age Social History Smoking Status: Never Smoker Drug Use: none Marital Status: Housing Status: lives alone Occupation Status: retired Current/Historical Medications Scheduled Amlodipine (Norvasc), 10 MG PO DAILY Atorvastatin (Lipitor), 40 MG PO DAILY Calcium Carbonate-Vitamin D (Calcium + D), 1 TAB PO BID Cholecalciferol (Vitamin D 1000 Unit), 1,000 INTER.UNIT PO DAILY Cyanocobalamin (Vitamin B12), 1,000 MCG PO QAM Digoxin (Digoxin), 0.125 MG PO QPM Furosemide (Lasix), 20 MG PO BID Levothyroxine Sodium (Levothyroxine Sodium), 75 MCG PO DAILYBB Metformin Hcl (Glucophage), 500 MG PO BID Metoprolol Tartrate (Lopressor) (Lopressor), 25 MG PO BID Mirtazapine Soltab (Remeron Soltab), 7.5 MG PO HS Multiple Vitamin (Multivitamin), 1 TAB PO DAILY Rivaroxaban (Xarelto), 15 MG PO QPM Allergies Coded Allergies: Celecoxib (Verified Allergy, Unknown, Unknown, 08/13/16) Physical Exam Vital Signs Date Time Temp Pulse Resp B/P (MAP) Pulse Ox O2 Delivery O2 Flow Rate FiO2 09/18/17 06:04 64 09/18/17 05:56 37.1 78 19 135/63 90 Room Air Physical Exam GENERAL: Patient is elderly and weak appearing and in no acute distress. HEENT: No acute trauma, normocephalic atraumatic, mucous membranes moist, no nasal congestion, no scleral icterus. Mild left sided neglect with mild left facial droop. NECK: No stridor, no adenopathy, no meningismus, trachea is midline. LUNGS: No dyspnea. Clear to auscultation and equal bilaterally. No wheeze, no rhonchi. HEART: Regular rate and rhythm. No murmurs, rubs, gallops appreciated. ABDOMEN: Soft, nontender, bowel sounds positive, no masses appreciated, no peritonitis. CHEST: Well healing sternotomy incision with Dermabond in place. BACK: No midline tenderness, no CVA tenderness EXTREMITIES: Normal motion all extremities, no cyanosis, no edema. NEUROLOGIC: Alert and oriented, no acute motor or sensory deficits, no focal weakness, cranial nerves grossly intact. SKIN: No rash, no jaundice, no diaphoresis. Medical Decision & Procedures Laboratory Results 09/18/17 06:24 Red Blood Count 2.53, Mean Corpuscular Volume 96.4, Mean Corpuscular Hemoglobin 30.4, Mean Corpuscular Hemoglobin Concent 31.6, Mean Platelet Volume 8.9, Neutrophils (%) (Auto) 35.9, Lymphocytes (%) (Auto) 42.9, Monocytes (%) (Auto) 15.4, Eosinophils (%) (Auto) 4.4, Basophils (%) (Auto) 1.1, Neutrophils # (Auto ) 2.87, Lymphocytes # (Auto) 3.43, Monocytes # (Auto) 1.23, Eosinophils # (Auto ) 0.35, Basophils # (Auto) 0.09 09/18/17 06:24 Test 09/18/17 06:24 White Blood Count 7.99 K/uL (4.8-10.8) Red Blood Count 2.53 M/uL (4.2-5.4) Hemoglobin 7.7 g/dL (12.0-16.0) Hematocrit 24.4 % (37-47) Mean Corpuscular Volume 96.4 fL (80-100) Mean Corpuscular Hemoglobin 30.4 pg (25-34) Mean Corpuscular Hemoglobin Concent 31.6 g/dl (32-36) Platelet Count 125 K/uL (130-400) Mean Platelet Volume 8.9 fL (7.4-10.4) Neutrophils (%) (Auto) 35.9 % Lymphocytes (%) (Auto) 42.9 % Monocytes (%) (Auto) 15.4 % Eosinophils (%) (Auto) 4.4 % Basophils (%) (Auto) 1.1 % Neutrophils # (Auto) 2.87 K/uL (1.4-6.5) Lymphocytes # (Auto) 3.43 K/uL (1.2-3.4) Monocytes # (Auto) 1.23 K/uL (0.11-0.59) Eosinophils # (Auto) 0.35 K/uL (0-0.5) Basophils # (Auto) 0.09 K/uL (0-0.2) RDW Standard Deviation 67.3 fL (36.4-46.3) RDW Coefficient of Variation 19.3 % (11.5-14.5) Immature Granulocyte % (Auto) 0.3 % Immature Granulocyte # (Auto) 0.02 K/uL (0.00-0.02) Acanthocytes 1+ Prothrombin Time 12.2 SECONDS (9.0-12.0) Prothromb Time International Ratio 1.2 (0.9-1.1) Activated Partial Thromboplast Time 27.2 SECONDS (21.0-31.0) Partial Thromboplastin Ratio 1.0 Anion Gap 6.0 mmol/L (3-11) Est Creatinine Clear Calc Drug Dose 25.6 ml/min Estimated GFR () 38.1 Estimated GFR (Non- 32.9 BUN/Creatinine Ratio 20.9 (10-20) Calcium Level 8.7 mg/dl (8.5-10.1) Phosphorus Level 3.9 mg/dl (2.5-4.9) Magnesium Level 2.4 mg/dl (1.8-2.4) Total Bilirubin 0.7 mg/dl (0.2-1) Direct Bilirubin 0.2 mg/dl (0-0.2) Aspartate Amino Transf (AST/SGOT) 17 U/L (15-37) Alanine Aminotransferase (ALT/SGPT) 18 U/L (12-78) Alkaline Phosphatase 89 U/L (45-117) Total Creatine Kinase 26 U/L (26-192) Creatine Kinase MB 0.6 ng/ml (0.5-3.6) Creatine Kinase MB Ratio 2.3 (0-3.0) Troponin I 0.033 ng/ml (0-0.045) Total Protein 7.6 gm/dl (6.4-8.2) Albumin 2.6 gm/dl (3.4-5.0) Lipase 87 U/L (73-393) Laboratory results as reviewed by me. ED Course 0556: The patient was evaluated in room B6. A complete history and physical exam was performed. 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 Medical Decision Differential: Sepsis, Infectious (UTI/Pneumonia/Meningitis/etc), Metabolic/ Electrolyte Abnormality, Cardiac, Hepatic, Endocrine, Toxicologic, Neurologic, amongst other pathologies entertained. 86 yr old female with history of Afib on Xarelto (restarted 4 days ago) and 1 month ago open repair of Type A dissection, arrives for evaluation of generalized weakness. She was to have blood transfusion this morning but was so weak and confused that daughter called 911 to take her to ER. Notes patient is just too weak to care for her at home like this. CXR with bilateral pleural effusions which are new and she is mildly hypoxic. She is not febrile and WBC OK thus I feel unlikely this is pneumonia. Awaiting UA however for further evaluation of infectious source. HgB continues to drop. She is far to weak to discharge and thus will need to come in for transfusion, especially given already with pleural effusions. Family greatly relieved as they do not feel she is safe at home. Impression Primary Impression: Anemia Additional Impressions: Generalized weakness Pleural effusion on left Pleural effusion on right Hypoxia Scribe Attestation The scribe's documentation has been prepared under my direction and personally reviewed by me in its entirety. I confirm that the note above accurately reflects all work, treatment, procedures, and medical decision making performed by me. Departure Information Referrals Asa Chavez M.D. (PCP) Patient Instructions My [facility] Problem Qualifiers
[2017-09-18] MEDS ORDERED: ATOR-24 PO (06:24)
[2017-09-18] MEDS ORDERED: AMLO-114 PO (06:24)
[2017-09-18] MEDS ORDERED: MIRT15TA2 PO (06:25)
[2017-09-18] MEDS ORDERED: CALC600T9 PO (06:28)
[2017-09-18] MEDS ORDERED: FURO-85 PO (06:30)
[2017-09-18] MEDS ORDERED: METO25TA56 PO (06:32)
[2017-09-18 06:35] LABS: BASO % 1.1 %; BASO ABS # 0.09 K/uL (0-0.2); EOS % 4.4 %; EOS ABS # 0.35 K/uL (0-0.5); HEMATOCRIT 24.4 % (37-47); HEMOGLOBIN 7.7 g/dL (12.0-16.0); IG# 0.02 K/uL (0.00-0.02); LYMPH % 42.9 %; LYMPH ABS # 3.43 K/uL (1.2-3.4); MEAN CELL VOLUME 96.4 fL (80-100); MEAN CORPUSCULAR HEMOGLOBIN 30.4 pg (25-34); MEAN CORPUSCULAR HGB CONC 31.6 g/dl (32-36); MEAN PLATELET VOLUME 8.9 fL (7.4-10.4); MONO % 15.4 %; MONO ABS # 1.23 K/uL (0.11-0.59); NEUT % 35.9 %; NEUT ABS # 2.87 K/uL (1.4-6.5); PLATELET COUNT 125 K/uL (130-400); RED CELL DISTRIBUTION WIDTH CV 19.3 % (11.5-14.5); RED CELL DISTRIBUTION WIDTH SD 67.3 fL (36.4-46.3); WHITE BLOOD COUNT 7.99 K/uL (4.8-10.8)
[2017-09-18 06:44] LABS: INR 1.2 (0.9-1.1); PTT PATIENT 27.2 SECONDS (21.0-31.0)
[2017-09-18 06:56] LABS: ALBUMIN 2.6 gm/dl (3.4-5.0); CALCIUM 8.7 mg/dl (8.5-10.1); CREATININE 1.42 mg/dl (0.60-1.20); POTASSIUM 4.4 mmol/L (3.5-5.1)
[2017-09-18 06:59] LABS: CKMB 0.6 ng/ml (0.5-3.6); PHOSPHORUS 3.9 mg/dl (2.5-4.9); TOTAL PROTEIN 7.6 gm/dl (6.4-8.2)
--- NOTE | 2017-09-18 07:01 | DIAGNOSTIC IMAGING REPORT ---
CT HEAD WITHOUT CONTRAST (CT) CLINICAL HISTORY: Generalized Weakness COMPARISON STUDY: 08/22/2017 TECHNIQUE: Axial CT of the brain is performed from the vertex to the skull base. IV contrast was not administered for this examination. A dose lowering technique was utilized adhering to the principles of ALARA. CT DOSE: 537.48 mGy.cm FINDINGS: No intra or extra-axial mass lesions are visualized. There is no CT evidence of acute cortical infarction. There is no evidence of midline shift. There is no acute hemorrhage. No calvarial fractures are visualized. There are patchy white matter hypodensities likely on a small vessel basis. There is no evidence of pathologic ventricular dilatation. There is no evidence of acute sinusitis IMPRESSION: No acute intracranial findings Electronically signed by: Chetan Clark M.D. 09/18/2017 7:00 AM Dictated Date/Time: 09/18/2017 6:59 AM
--- NOTE | 2017-09-18 07:10 | DIAGNOSTIC IMAGING REPORT ---
SINGLE VIEW CHEST CLINICAL HISTORY: Generalized weakness. FINDINGS: An AP, portable, upright chest radiograph is compared to study dated 08/22/2017. The examination is degraded by portable technique and patient rotation. A 2-lead cardiac pacemaker is unchanged in position and partially obscures the left mid chest. The patient is status post midline sternotomy. The heart is enlarged and there is atherosclerotic calcification of the thoracic aorta. There is pulmonary vascular congestion. Layering pleural effusions are identified with bibasilar consolidation. No pneumothorax is seen. The skeletal structures are osteopenic. The bony thorax is grossly intact. Surgical clips are noted in the right axilla. 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 IMPRESSION: 1. Cardiomegaly and cardiac pacemaker with evidence of congestive failure. 2. Pleural effusions with bibasilar consolidation. This likely represents atelectasis. Correlate clinically for evidence of superimposed pneumonia. Electronically signed by: Arturo Ba M.D. 09/18/2017 7:09 AM Dictated Date/Time: 09/18/2017 7:08 AM
--- NOTE | 2017-09-18 08:15 | History and Physical ---
History & Physical Date & Time of Service: Sep 18, 2017 at 07:46 Chief Complaint: Weakness Primary Care Physician: Asa Chavez M.D. History of Present Illness Source: patient, family 86yo female who recently underwent type A aortic dissection surgery on August [address] [facility], discharged on August 28, and then went to [facility] ( d/c from [facility] on September 09) who presents with extreme weakness & fatigue beginning this am. The weakness was so severe she could not walk and 911 needed to be called to transport her to the hospital. Much of the history is provided by the patient's [id number] who was at bedside. According to the daughter, when she was released from [facility], she was able to ambulate with a walker at her home. She has 24/7 caregivers staying with her. She was doing ok initially at home but was having insomnia. Her [id number] reported good appetite. She has been taking a sleep aid (remeron) for her insomnia. Yesterday she had multiple home therapists at her home. Appetite was ok yesterday. No fevers or chills but has felt cold for the last few days. Saw her PCP on Thursday and had a good check-up then. Was resumed on xarelto this past Thursday for a. fib. Since getting home she has been short of breath with activity. No edema of her ankles but had some after getting home from [facility] last week. No sick contacts. Has had flu shot this year. No urinary symptoms that are new; has chronic incontinence but no foul-smelling urine. This AM she was profoundly weak and couldn't walk. She also had mild confusion overnight, but at baseline has a very scant amount of memory loss/confusion per the [id number]. Patient and her family are aware she is anemic and in need of PRBCs. In fact she was going to have an outpatient PRBC infusion TODAY. Past Medical/Surgical History PMH: 1. type A aortic dissection, s/p repair - 08/22/[address] [facility] 2. T2DM 3. pacemaker due to h/o SSS 4. atrial fibrillation 5. hyperlipidemia 6. hypothyroidism 7. HTN 8. IgM lambda paraproteinemia 9. Non-Hodgkin lymphoma - family not aware of such and has never been treated for this 10. recurrent dizziness PSH: 1. type A dissection repair - 08/2017 2. pacemaker insertion - 2015 Family History mother - leukemia? other blood disorder? 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) Immunizations History of Influenza Vaccine: Yes History of Tetanus Vaccine?: No History of Pneumococcal: Unknown History of Hepatitis B Vaccine: No Multi-Drug Resistant Organisms History of MDRO: No Allergies Coded Allergies: Celecoxib (Verified Allergy, Unknown, Unknown, 08/13/16) Home Medications Scheduled Amlodipine (Norvasc), 10 MG PO DAILY Atorvastatin (Lipitor), 40 MG PO DAILY Calcium Carbonate-Vitamin D (Calcium + D), 1 TAB PO BID Cholecalciferol (Vitamin D 1000 Unit), 1,000 INTER.UNIT PO DAILY Cyanocobalamin (Vitamin B12), 1,000 MCG PO QAM Digoxin (Digoxin), 0.125 MG PO QPM Furosemide (Lasix), 20 MG PO BID Levothyroxine Sodium (Levothyroxine Sodium), 75 MCG PO DAILYBB Metformin Hcl (Glucophage), 500 MG PO BID Metoprolol Tartrate (Lopressor) (Lopressor), 25 MG PO BID Mirtazapine Soltab (Remeron Soltab), 7.5 MG PO HS Multiple Vitamin (Multivitamin), 1 TAB PO DAILY Rivaroxaban (Xarelto), 15 MG PO QPM Review of Systems Constitutional: + chills, + weight loss, + fatigue, No fever Eyes: + worsening of vision (chronic) ENT: + problem reported (dry mouth ), No sore throat, No trouble swallowing Respiratory: + shortness of breath (at rest periodically - "I can't take a deep breath"), + dyspnea on exertion, No cough, No sputum, No wheezing Cardiovascular: No chest pain, No orthopnea, No edema Abdomen: No pain, No nausea, No vomiting, No diarrhea, No constipation, No GI bleeding Musculoskeletal: + joint pain Genitourinary - Female: + urinary incontinence (chronic), No dysuria Neurologic: + memory loss (chronic, very mild), + weakness (generalized ) Psychiatric: + depression symptoms (chronic) Endocrine: + fatigue, + excessive thirst Hematologic / Lymphatic: No abnormal bleeding/bruising Integumentary: No rash Physical Exam Vital Signs Date Time Temp Pulse Resp B/P (MAP) Pulse Ox O2 Delivery O2 Flow Rate FiO2 09/18/17 07:44 64 17 135/57 96 Nasal Cannula 2.0 09/18/17 06:04 64 09/18/17 05:56 37.1 78 19 135/63 90 Room Air General Appearance: no apparent distress (but c/o dyspnea), + pertinent finding (looks ill but nontoxic) Head: normocephalic, atraumatic Eyes: + pertinent finding (right pupil with lens implant, irregular pupil on left, both reactive however) ENT: pharynx normal, + pertinent finding (right TM not seen (cerumen impaction) ; left TM wnl) Neck: supple, no adenopathy, thyroid normal, no JVD, + pertinent finding ( murmur transmitted to b/l neck) Respiratory/Chest: no respiratory distress, no accessory muscle use, + crackles (extensive, about 1/3 way up posterior back) Cardiovascular: regular rate, rhythm, no gallop, normal peripheral pulses, + systolic murmur (3/6 heard all over chest but loudest LLSB), + pertinent finding (sternal scar well healed) Abdomen/GI: normal bowel sounds, non tender, soft, no organomegaly, no pulsatile mass Back: normal inspection Extremities/Musculoskelatal: + pedal edema (trace b/l, slightly worse on right) Neurologic/Psych: 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 as tested, no motor/sensory deficits, alert ( oriented to month, place, person but could not tell me the year or day of the week), normal reflexes, + depressed affect Skin: + pallor Lymphatic: no adenopathy (cervical ) Diagnostics Laboratory Results Results Past 24 Hours Test 09/18/17 06:24 09/18/17 07:43 Range/Units White Blood Count 7.99 4.8-10.8 K/uL Red Blood Count 2.53 4.2-5.4 M/uL Hemoglobin 7.7 12.0-16.0 g/dL Hematocrit 24.4 37-47 % Mean Corpuscular Volume 96.4 80-100 fL Mean Corpuscular Hemoglobin 30.4 25-34 pg Mean Corpuscular Hemoglobin Concent 31.6 32-36 g/dl Platelet Count 125 130-400 K/uL Mean Platelet Volume 8.9 7.4-10.4 fL Neutrophils (%) (Auto) 35.9 % Lymphocytes (%) (Auto) 42.9 % Monocytes (%) (Auto) 15.4 % Eosinophils (%) (Auto) 4.4 % Basophils (%) (Auto) 1.1 % Neutrophils # (Auto) 2.87 1.4-6.5 K/uL Lymphocytes # (Auto) 3.43 1.2-3.4 K/uL Monocytes # (Auto) 1.23 0.11-0.59 K/uL Eosinophils # (Auto) 0.35 0-0.5 K/uL Basophils # (Auto) 0.09 0-0.2 K/uL RDW Standard Deviation 67.3 36.4-46.3 fL RDW Coefficient of Variation 19.3 11.5-14.5 % Immature Granulocyte % (Auto) 0.3 % Immature Granulocyte # (Auto) 0.02 0.00-0.02 K/uL Acanthocytes 1+ Prothrombin Time 12.2 9.0-12.0 SECONDS Prothromb Time International Ratio 1.2 0.9-1.1 Activated Partial Thromboplast Time 27.2 21.0-31.0 SECONDS Partial Thromboplastin Ratio 1.0 Sodium Level 135 136-145 mmol/L Potassium Level 4.4 3.5-5.1 mmol/L Chloride Level 101 98-107 mmol/L Carbon Dioxide Level 28 21-32 mmol/L Anion Gap 6.0 3-11 mmol/L Blood Urea Nitrogen 30 7-18 mg/dl Creatinine 1.42 0.60-1.20 mg/dl Est Creatinine Clear Calc Drug Dose 25.6 ml/min Estimated GFR () 38.1 Estimated GFR (Non- 32.9 BUN/Creatinine Ratio 20.9 10-20 Random Glucose 132 70-99 mg/dl Calcium Level 8.7 8.5-10.1 mg/dl Phosphorus Level 3.9 2.5-4.9 mg/dl Magnesium Level 2.4 1.8-2.4 mg/dl Total Bilirubin 0.7 0.2-1 mg/dl Direct Bilirubin 0.2 0-0.2 mg/dl Aspartate Amino Transf (AST/SGOT) 17 15-37 U/L Alanine Aminotransferase (ALT/SGPT) 18 12-78 U/L Alkaline Phosphatase 89 45-117 U/L Total Creatine Kinase 26 26-192 U/L Creatine Kinase MB 0.6 0.5-3.6 ng/ml Creatine Kinase MB Ratio 2.3 0-3.0 Troponin I 0.033 0-0.045 ng/ml Total Protein 7.6 6.4-8.2 gm/dl Albumin 2.6 3.4-5.0 gm/dl Lipase 87 73-393 U/L Diagnostic Radiology cxr - pulmonary edema, pacemaker left upper chest with wires, b/l effusions, sternal wires CT head - no acute process, no stroke, no ICH EKG EKG - atrial pacing, RBBB Impression Assessment and Plan 86yo female with history of HTN, hypothyroidism, a. fib, SSS s/p pacemaker placement, and recent type A aortic dissection s/p repair at [facility] on 08/22/17 - presenting with extreme fatigue beginning this AM along with REY for several weeks. 1. extreme fatigue - I believe this is multifactorial. She is chronically anemic with baseline Hb of about 9; Hb today is 7.7 and thus I don't believe this is the sole player in her fatigue. Need to r/o UTI, influenza, decompensated hypothyroidism, dig toxicity, other metabolic/infectious derangements. Check TSH, rapid flu, dig level. Check u/a and urine cx, r/o UTI. Plan for 1 unit of PRBCs today to get her closer to her baseline Hb of about 9. She has some form of chronic blood disorder - the family is not aware of non- Hodgkin's lymphoma (CTA dissection study in August showed retroperitoneal lymphadenopathy). This will need additional work-up - if desired by patient/family - in future. 2. acute/chronic anemia - again baseline Hb is about 9. The acute drop is likely from blood losses from her recent surgery, blood draws, etc. She is heme negative in the ER by report. Check iron studies. B12 level 01/2017 was very normal. Check folic acid level - hasn't been checked in many years. Plan for lasix now, followed by 1 unit of PRBCs, and then lasix again due to # 3. Could always give 1 additional unit tomorrow if needed. 3. acute/chronic diastolic CHF - although she doesn't have JVD she has extensive crackles on exam, pulm edema on cxr, and she is dyspneic with borderline hypoxia. Plan for lasix now, and then lasix again after her PRBCs. Check an echo to ensure her EF is still preserved and rule out any valvular heart disease given her murmur. 4. pacemaker status - will interrogate to ensure proper pacer function and rule out a rhythm issue contributing to #1. 5. a. fib - continue BB and xarelto. Check dig level. 6. hypothyroidism - check TSH; cont synthroid. 7. hyperlipidemia - cont statin. 8. CKD stage 4 - creatinine is stable and at baseline. 9. mild edema, worse RLE - in light of recent hospital stay and the fact she was off anticoagulation check doppler right leg, r/o DVT. 10. DVT proph - xarelto. 11. HTN - controlled. 12. ?mild cognitive impairment with mild superimposed encephalopathy? - follow for now. Avoid benzos. 13. insomnia - remeron is good choice. Daughter in law reports ongoing depression. Increase dose to 15mg HS. 14. recent type A aortic dissection repair - in light of age made incredible recovery. PT, OT to help w/ her deconditioning. 15. T2DM - hold metformin. BSG's ac/hs. Novolog correction/carb coverage for now. Goal range 120-180. pt requests full code status she understands what that entails Level of Care Telemetry Resuscitation Status FULL RESUSCITATION VTE Prophylaxis Risk Level: Moderate Given or contraindicated: Other Anticoagulation Social Service Consult >80 yr.& Lives Alone, Receiving Home Health Note total time about 70 min Additional Copies To Asa Chavez M.D.
[2017-09-18] MEDS ORDERED: FUROSEMIDE 40 MG/4 ML VIAL IV STA (08:35)
[2017-09-18] MEDS ORDERED: POLYETHYLENE (MIRALAX) 17 GM PACK PO PRN (08:45)
[2017-09-18] MEDS ORDERED: ACETAMINOPHEN 325 MG TAB PO PRN (08:45)
[2017-09-18] MEDS ORDERED: FUROSEMIDE INJ 20 MG in SYRINGE 0 ML IV SCH ×2 (08:45→12:30)
[2017-09-18 09:24] LABS: INFLUENZA B ANTIGEN Neg for Influ B (NEG)
[2017-09-18] MEDS ORDERED: LEVOTHYROXINE 75 MCG TAB PO ONE (12:30)
[2017-09-18] MEDS: CYANOCOBALAMIN 500 MCG TAB (VIT B-12) PO SCH (13:28)
[2017-09-18] MEDS: MULTIVITAMIN TAB PO SCH (13:29)
[2017-09-18] MEDS: ATORVASTATIN 40 MG TAB PO SCH (13:29)
[2017-09-18] MEDS: AMLODIPINE BESYLATE 5 MG TAB PO SCH (13:29)
[2017-09-18] MEDS: METOPROLOL TARTRATE 25 MG TAB PO SCH ×2 (13:30→20:34)
[2017-09-18] MEDS: CHOLECALCIFEROL 1000 INTER.UNIT TAB PO SCH (13:30)
--- NOTE | 2017-09-18 14:21 | DIAGNOSTIC IMAGING REPORT ---
R VENOUS DOPP LOWER EXT UNILAT CLINICAL HISTORY: recent prolonged hospital stay; right leg edema; eval DVT pain. Edema. TECHNIQUE: Venous Doppler COMPARISON STUDY: None FINDINGS: Normal study IMPRESSION: Normal study The above report was generated using voice recognition software. It may contain grammatical, syntax or spelling errors. Electronically signed by: Yousif Perry M.D. 09/18/2017 2:19 PM Dictated Date/Time: 09/18/2017 2:19 PM
[2017-09-18] MEDS ORDERED: PERFLUTREN LIPID MICROSPHERE (DEFINITY) IV ONE (15:20)
[2017-09-18] MEDS: INSULIN ASPART 100 UNITS/ML 3 ML PEN SC SCH ×2 (16:15→20:34)
[2017-09-18] MEDS: RIVAROXABAN TAB 15 MG TAB PO SCH (16:52)
[2017-09-18] MEDS: DIGOXIN 0.125 MG TAB PO SCH (16:52)
--- NOTE | 2017-09-18 17:25 | ECHOCARDIOGRAM REPORT ---
*NOTICE TO RECEIVING REPUBLICAN AGENCY This information is strictly Confidential and protected under [place] law. [place] law prohibits you from making any further disclosure of this information unless further disclosure is expressly permitted by the written consent of the person to whom it pertains or is authorized by law. A general authorization for the release of medical or other information is not sufficient for this purpose. Hospital accepts no responsibility if the information is made available to any other person, INCLUDING THE PATIENT. Interpretation Summary * Name: ISIDRO TATE Study Date: 09/18/2017 02:24 PM BP: 130/58 mmHg * Patient Location: C.2T\S\S229\S\1 HR: 60 * : 1930 (M/d/yyy) Gender: Female Height: 64 in * Age: 86 yrs Ethnicity: [place] Weight: 145 lb * Ordering Physician: Horacio Palomino * Referring Physician: Self, Referred * Performed By: Stephanie Serrano RDCS * * Reason For Study: Atrial Fibrillation, Murmur, Recent Type A Aortic Dissection Repair * BSA: 1.7 m2 * -- Conclusions -- * Left ventricular systolic function is normal. * No regional wall motion abnormalities noted. * Ejection Fraction = 60-65%. * There is mild concentric left ventricular hypertrophy. * Diastolic dysfunction, Grade II (pseudonormalization pattern). * Severe valvular aortic stenosis. * There is mild tricuspid regurgitation. Procedure Details * A complete two-dimensional transthoracic echocardiogram was performed (2D, M-mode, Doppler and color flow Doppler). * A contrast injection of Definity was performed to improve assessment of LV function. * Contrast was injected into an intravenous site in the right arm. * One vial of Definity ultrasound contrast was diluted in normal saline to a total volume of 10 ml. A total of '2' ml of solution was administered during imaging. * Lot # [id number] of Definity utilized for procedure. * Expiration date . * The attending nurse who injected the contrast agent was Simona Bartholomew RN. Left Ventricle * The left ventricle is normal in size. * There is mild concentric left ventricular hypertrophy. * Ejection Fraction = 60-65%. * Left ventricular systolic function is normal. * No regional wall motion abnormalities noted. Right Ventricle * The right ventricle is grossly normal size. * The right ventricular systolic function is normal as assessed by tricuspid annular plane systolic excursion (TAPSE) (normal >1.5 cm). Atria * The left atrium is mildly dilated. * Right atrium not well visualized. Mitral Valve * The mitral valve is grossly normal. * There is no mitral valve stenosis. * There is mild mitral regurgitation. Tricuspid Valve * The tricuspid valve is not well visualized, but is grossly normal. * There is mild tricuspid regurgitation. * Right ventricular systolic pressure is elevated at 30-40mmHg. Aortic Valve * Severe valvular aortic stenosis. * There is no significant aortic regurgitation. Pulmonic Valve * The pulmonary valve is not well seen, but the Doppler examination is normal without significant regurgitation or stenosis. Great Vessels * The aortic root is normal size. * The pulmonary is not well visualized. Pericardium/Pleural * There is no pericardial effusion. Great Vessels * Normal inferior vena cava size and collapsability with sniff indicates a normal right atrial pressure of 3 mmHg Left Ventricular Diastolic Function * Diastolic dysfunction, Grade II (pseudonormalization pattern). MMode 2D Measurements and Calculations IVSd 1.1 cm IVSs 1.6 cm LVIDd 3.5 cm LVIDs 2.1 cm LVPWd 1.3 cm LVPWs 1.5 cm IVS/LVPW 0.88 FS 38.5 % EDV(Teich) 49.4 ml ESV(Teich) 14.9 ml EF(Teich) 69.9 % EDV(cubed) 41.3 ml ESV(cubed) 9.6 ml EF(cubed) 76.7 % % IVS thick 45.0 % % LVPW thick 18.4 % LV mass(C)d 129.8 grams LV mass(C)dI 76.1 grams/m\S\2 LV mass(C)s 110.3 grams LV mass(C)sI 64.6 grams/m\S\2 SV(Teich) 34.5 ml SI(Teich) 20.2 ml/m\S\2 SV(cubed) 31.7 ml SI(cubed) 18.6 ml/m\S\2 Ao root diam 3.0 cm Ao root area 7.2 cm\S\2 ACS 1.1 cm LA dimension 3.9 cm LA/Ao 1.3 LVOT diam 2.0 cm LVOT area 3.1 cm\S\2 LVAd ap4 27.5 cm\S\2 LVLd ap4 7.1 cm EDV(MOD-sp4) 87.1 ml EDV(sp4-el) 90.6 ml LVAs ap4 14.3 cm\S\2 LVLs ap4 6.4 cm ESV(MOD-sp4) 26.5 ml ESV(sp4-el) 27.1 ml EF(MOD-sp4) 69.6 % EF(sp4-el) 70.1 % LVAd ap2 24.9 cm\S\2 LVLd ap2 7.1 cm EDV(MOD-sp2) 75.1 ml EDV(sp2-el) 74.3 ml LVAs ap2 14.8 cm\S\2 LVLs ap2 6.8 cm ESV(MOD-sp2) 28.5 ml ESV(sp2-el) 27.1 ml EF(MOD-sp2) 62.1 % EF(sp2-el) 63.5 % LVLd %diff -0.22 % EDV(MOD-bp) 80.4 ml LVLs %diff 6.5 % ESV(MOD-bp) 27.7 ml EF(MOD-bp) 65.5 % SV(MOD-sp4) 60.6 ml SI(MOD-sp4) 35.5 ml/m\S\2 SV(MOD-sp2) 46.6 ml SI(MOD-sp2) 27.3 ml/m\S\2 SV(MOD-bp) 52.7 ml SI(MOD-bp) 30.9 ml/m\S\2 SV(sp4-el) 63.5 ml SI(sp4-el) 37.2 ml/m\S\2 SV(sp2-el) 47.1 ml SI(sp2-el) 27.6 ml/m\S\2 Doppler Measurements and Calculations MV E max annabelle 127.1 cm/sec MV A max annabelle 111.6 cm/sec MV E/A 1.1 MV dec time 0.26 sec Ao V2 max 306.6 cm/sec Ao max PG 37.6 mmHg Ao max PG (full) 33.5 mmHg Ao V2 mean 187.7 cm/sec Ao mean PG 17.1 mmHg Ao mean PG (full) 15.5 mmHg Ao V2 VTI 61.1 cm KRISTIN(I,A) 1.2 cm\S\2 KRISTIN(I,D) 1.2 cm\S\2 KRISTIN(V,A) 1.0 cm\S\2 KRISTIN(V,D) 1.0 cm\S\2 LV V1 max PG 4.2 mmHg LV V1 mean PG 1.6 mmHg LV V1 max 101.9 cm/sec LV V1 mean 56.8 cm/sec LV V1 VTI 23.8 cm SV(Ao) 438.3 ml SI(Ao) 256.9 ml/m\S\2 SV(LVOT) 73.4 ml SI(LVOT) 43.0 ml/m\S\2 PA V2 max 122.6 cm/sec PA max PG 6.0 mmHg TR max annabelle 287.8 cm/sec
[2017-09-18] MEDS: CEFTRIAXONE SOD INJ 1 GM in DEXTROSE 5% ADD-VANTAGE 50ML 50 ML IV SCH (20:33)
[2017-09-18] MEDS ORDERED: MIRTAZAPINE TAB 15 MG TAB PO SCH (21:00)
[2017-09-19] VITALS (10 sets, daily range): BP systolic 110–132; BP diastolic 60–75; PULSE 60–84; TEMP 36.4–37; O2SAT 90–95
[2017-09-19] MEDS: LEVOTHYROXINE 75 MCG TAB PO SCH (05:20)
[2017-09-19 06:10] LABS: HEMATOCRIT 29.3 % (37-47); HEMOGLOBIN 9.5 g/dL (12.0-16.0); MEAN CELL VOLUME 93.9 fL (80-100); MEAN CORPUSCULAR HEMOGLOBIN 30.4 pg (25-34); MEAN CORPUSCULAR HGB CONC 32.4 g/dl (32-36); MEAN PLATELET VOLUME 9.4 fL (7.4-10.4); PLATELET COUNT 130 K/uL (130-400); RED CELL DISTRIBUTION WIDTH CV 19.7 % (11.5-14.5); WHITE BLOOD COUNT 7.71 K/uL (4.8-10.8)
[2017-09-19 06:39] LABS: CALCIUM 8.9 mg/dl (8.5-10.1); CREATININE 1.25 mg/dl (0.60-1.20); POTASSIUM 4.1 mmol/L (3.5-5.1)
[2017-09-19] MEDS: METOPROLOL TARTRATE 25 MG TAB PO SCH ×2 (08:14→20:21)
[2017-09-19] MEDS: CYANOCOBALAMIN 500 MCG TAB (VIT B-12) PO SCH (08:14)
[2017-09-19] MEDS: CHOLECALCIFEROL 1000 INTER.UNIT TAB PO SCH (08:15)
[2017-09-19] MEDS: AMLODIPINE BESYLATE 5 MG TAB PO SCH (08:16)
[2017-09-19] MEDS: ATORVASTATIN 40 MG TAB PO SCH (08:17)
[2017-09-19] MEDS: MULTIVITAMIN TAB PO SCH (08:20)
[2017-09-19] MEDS: INSULIN ASPART 100 UNITS/ML 3 ML PEN SC SCH ×4 (08:40→20:20)
--- NOTE | 2017-09-19 09:31 | DIAGNOSTIC IMAGING REPORT ---
CHEST 2 VIEWS ROUTINE CLINICAL HISTORY: b/l effusions, chf dyspnea COMPARISON STUDY: 09/18/2017 FINDINGS: Moderate stable cardia megaly. Prior median sternotomy. Bipolar cardiac pacemaker with leads in good position. Slight improvement in aeration right lung base. Unchanged appearance left base. IMPRESSION: Stable to minimally improved components of congestive failure. The above report was generated using voice recognition software. It may contain grammatical, syntax or spelling errors. Electronically signed by: Yousif Perry M.D. 09/19/2017 9:29 AM Dictated Date/Time: 09/19/2017 9:28 AM
[2017-09-19] MEDS: ACETAMINOPHEN 500 MG TAB PO SCH ×3 (12:10→20:21)
[2017-09-19] MEDS: FUROSEMIDE 20 MG TAB PO SCH (12:11)
[2017-09-19] MEDS: DIGOXIN 0.125 MG TAB PO SCH (16:33)
[2017-09-19] MEDS: RIVAROXABAN TAB 15 MG TAB PO SCH (18:07)
[2017-09-19] MEDS: CEFTRIAXONE SOD INJ 1 GM in DEXTROSE 5% ADD-VANTAGE 50ML 50 ML IV SCH (20:09)
--- NOTE | 2017-09-19 22:50 | Progress Note ---
Subjective Date of Service: Sep 19, 2017. Subjective Pt evaluation today including: conversation w/ patient, conversation w/ family (son, daughter in law), physical exam, chart review, lab review, review of studies (echo, repeat cxr), review of inpatient medication list Pain: posterior neck pain - started today PO Intake: fair, 50% of breakfast tele stable overnight she was very tired during the visit states she feels no different than yesterday main complaint is that of posterior neck pain in the paraspinal muscles denies arm weakness or paresthesias of arms staff report ongoing confusion Problem List Medical Problems: (1) Anemia Status: Acute (2) Anemia Status: Acute (3) Atrial fibrillation with RVR Status: Acute (4) CVA (cerebral vascular accident) Status: Acute (5) Generalized weakness Status: Acute (6) Hypoxia Status: Acute (7) Left-sided weakness Status: Acute (8) Low back pain Status: Acute (9) Near syncope Status: Acute (10) Paroxysmal a-fib Status: Acute (11) Pleural effusion on left Status: Acute (12) Pleural effusion on right Status: Acute (13) Rapid atrial fibrillation Status: Acute Review of Systems Constitutional: No fever Respiratory: + dyspnea on exertion, No cough, No dyspnea at rest Cardiac: No chest pain, No orthopnea Abdomen: No pain Objective Vital Signs Date Time Temp Pulse Resp B/P (MAP) Pulse Ox O2 Delivery O2 Flow Rate FiO2 09/19/17 20:00 Room Air 09/19/17 19:21 36.4 79 18 126/70 (88) 95 Room Air 09/19/17 16:33 70 09/19/17 16:00 93 Room Air 2.0 09/19/17 14:47 36.6 75 16 110/60 (77) 93 Room Air 09/19/17 12:00 93 Room Air 2.0 09/19/17 11:49 36.5 69 18 118/62 (80) 93 Room Air 09/19/17 08:00 95 Room Air 2.0 09/19/17 07:19 36.6 78 18 131/66 (87) 95 Room Air 09/19/17 04:27 36.8 84 18 129/75 (93) 91 Room Air 09/19/17 04:00 Room Air 09/19/17 00:19 37.0 60 18 127/63 (84) 90 Room Air 09/19/17 00:00 Room Air Physical Exam General Appearance: no apparent distress, + thin ENT: + pertinent finding (MM slightly dry) Neck: no JVD, + pertinent finding (NO MENINGISMUS OR NUCCAL RIGIDITY; THERE IS MILD TENDERNESS OF THE PARASPINAL MUSCLE WITH PALPATION; NO CERVICAL LYMPHADENOPATHY; ? MILD GOITER) Respiratory/Chest: no respiratory distress, no accessory muscle use, + decreased breath sounds (bases with course crackles b/l - no change from prior exam) Cardiovascular: regular rate, rhythm, no gallop, + systolic murmur (2-3/6 RUSB) Abdomen: normal bowel sounds, non tender, soft, no organomegaly Extremities: no pedal edema Neurologic/Psychiatric: no motor/sensory deficits, alert, + disoriented Laboratory Results Last 24 Hours Test 09/19/17 05:11 09/19/17 06:48 09/19/17 11:09 09/19/17 16:22 White Blood Count 7.71 K/uL Red Blood Count 3.12 M/uL Hemoglobin 9.5 g/dL Hematocrit 29.3 % Mean Corpuscular Volume 93.9 fL Mean Corpuscular Hemoglobin 30.4 pg Mean Corpuscular Hemoglobin Concent 32.4 g/dl RDW Standard Deviation 66.0 fL RDW Coefficient of Variation 19.7 % Platelet Count 130 K/uL Mean Platelet Volume 9.4 fL Sodium Level 133 mmol/L Potassium Level 4.1 mmol/L Chloride Level 98 mmol/L Carbon Dioxide Level 28 mmol/L Anion Gap 7.0 mmol/L Blood Urea Nitrogen 25 mg/dl Creatinine 1.25 mg/dl Est Creatinine Clear Calc Drug Dose 29.1 ml/min Estimated GFR () 44.5 Estimated GFR (Non- 38.4 BUN/Creatinine Ratio 19.6 Random Glucose 118 mg/dl Calcium Level 8.9 mg/dl Bedside Glucose 123 mg/dl 113 mg/dl 224 mg/dl Test 09/19/17 20:19 Bedside Glucose 121 mg/dl Assessment and Plan 86yo female with history of HTN, hypothyroidism, a. fib, SSS s/p pacemaker placement, and recent type A aortic dissection s/p repair at [facility] on 08/22/17 who presented with extreme fatigue beginning on the AM of admission and REY since her surgery. 1. extreme fatigue - I believe this is multifactorial. She has a gram negative gal UTI which could be large factor in her fatigue. Remeron was started this past Thursday by her PCP for recent insomnia and this, too, could be giving her excess sedation. TSH, dig level, and other electrolytes are normal. Rapid flu negative. Plan - Rx the UTI w/ rocephin, stop the remeron, and monitor. Now that hemoglobin is back to her baseline (typically 9-9.5) and she feels no different this would argue the anemia was not playing a large role in her presentation. 2. acute/chronic anemia - again baseline Hb is about 9. The recent acute drop was likely from blood losses from her recent surgery, blood draws, etc. She was heme negative in the ER by report. B12 level 01/2017 was very normal. Folate level - normal. Iron studies with trans sat <20% - consider oral iron. S/p 1 unit PRBCs yesterday - Hb today 9.5. Repeat CBC in am for stability. 3. GNR UTI - day #2 of rocephin, narrow her abx once final culture has resulted. 4. acute/chronic diastolic CHF - possible - CXR at presentation yesterday with pulmonary edema and exam had extensive basilar crackles. Despite 2 doses of lasix yesterday I don't hear much difference in her exam. Repeat cxr today still with pulm edema/effusions. Echo results reviewed (preserved EF, normal CVP). On exam today she looks modestly volume contracted despite the basilar rales. I am somewhat confused by her volume status. Will resume lasix 20mg PO qam for now and simply monitor her volume status & labs. 5. pacemaker status - will interrogate to ensure proper pacer function and rule out a rhythm issue that could have contributed to #1 but doubt such. 6. a. fib - continue BB, digoxin, and xarelto. Dig level acceptable. 7. hypothyroidism - cont synthroid; TSH compensated. 8. recent insomnia - remeron could be causing her fatigue/sedation. Hold the remeron and follow. 9. hyperlipidemia - cont statin. 10. CKD stage 4 - creatinine is stable and actually slightly better today. 11. DVT proph - xarelto. 12. HTN - controlled. 13. ?mild cognitive impairment with mild superimposed encephalopathy? - follow for now. Avoid benzos. Stop remeron, Treat the UTI. 14. insomnia with depression - stopping remeron due to concern of excess sedation. Consider zoloft or lexapro in patricia. Hold off on starting SSRI for now. 15. recent type A aortic dissection repair - in light of age made incredible recovery. PT, OT to help w/ her deconditioning. 16. T2DM - hold metformin. BSG's ac/hs. Novolog correction/carb coverage for now. Goal range 120-180. 17. 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 Will place on tylenol 1gm TID and order K-pad. No nuccal rigidity/meningismus, no fever, etc to suggest [employer]IAN infection/ meningitis. Arms w/ normal strength and sensation. family updated today Continued [facility] stay due to: ambulation difficulties, multiple IV medications needed Discharge planning: uncertain
[2017-09-20] VITALS (7 sets, daily range): BP systolic 107–144; BP diastolic 53–69; PULSE 59–86; TEMP 36.4–36.8; O2SAT 93–96
[2017-09-20] MEDS: LEVOTHYROXINE 75 MCG TAB PO SCH (05:40)
[2017-09-20 05:54] LABS: HEMATOCRIT 30.1 % (37-47); HEMOGLOBIN 9.8 g/dL (12.0-16.0); MEAN CELL VOLUME 94.1 fL (80-100); MEAN CORPUSCULAR HEMOGLOBIN 30.6 pg (25-34); MEAN CORPUSCULAR HGB CONC 32.6 g/dl (32-36); MEAN PLATELET VOLUME 8.9 fL (7.4-10.4); PLATELET COUNT 123 K/uL (130-400); RED CELL DISTRIBUTION WIDTH CV 18.9 % (11.5-14.5); RED CELL DISTRIBUTION WIDTH SD 64.4 fL (36.4-46.3); WHITE BLOOD COUNT 7.76 K/uL (4.8-10.8)
[2017-09-20 06:12] LABS: CALCIUM 8.8 mg/dl (8.5-10.1); CREATININE 1.03 mg/dl (0.60-1.20); POTASSIUM 4.4 mmol/L (3.5-5.1)
[2017-09-20] MEDS: INSULIN ASPART 100 UNITS/ML 3 ML PEN SC SCH ×4 (07:00→20:48)
[2017-09-20] MEDS: FERROUS SULFATE 325 MG TAB PO SCH ×2 (07:41→19:30)
[2017-09-20] MEDS: AMLODIPINE BESYLATE 5 MG TAB PO SCH (07:42)
[2017-09-20] MEDS: CYANOCOBALAMIN 500 MCG TAB (VIT B-12) PO SCH (07:42)
[2017-09-20] MEDS: METOPROLOL TARTRATE 25 MG TAB PO SCH ×2 (07:42→19:30)
[2017-09-20] MEDS: FUROSEMIDE 20 MG TAB PO SCH (07:42)
[2017-09-20] MEDS: MULTIVITAMIN TAB PO SCH (07:42)
[2017-09-20] MEDS: CHOLECALCIFEROL 1000 INTER.UNIT TAB PO SCH (07:43)
[2017-09-20] MEDS: ACETAMINOPHEN 500 MG TAB PO SCH ×3 (07:43→19:41)
[2017-09-20] MEDS: ATORVASTATIN 40 MG TAB PO SCH (07:43)
--- NOTE | 2017-09-20 08:46 | Progress Note ---
Subjective Date of Service: Sep 20, 2017. Subjective pt is surrounded by daughters at bedside, questions answered, pt states she just feels weak and gets out of breath easily Problem List Medical Problems: (1) Anemia Status: Acute (2) Anemia Status: Acute (3) Atrial fibrillation with RVR Status: Acute (4) CVA (cerebral vascular accident) Status: Acute (5) Generalized weakness Status: Acute (6) Hypoxia Status: Acute (7) Left-sided weakness Status: Acute (8) Low back pain Status: Acute (9) Near syncope Status: Acute (10) Paroxysmal a-fib Status: Acute (11) Pleural effusion on left Status: Acute (12) Pleural effusion on right Status: Acute (13) Rapid atrial fibrillation Status: Acute Review of Systems Constitutional: No fever, No chills, No weakness Respiratory: + shortness of breath, + dyspnea on exertion, No dyspnea at rest Cardiac: No chest pain, No edema Abdomen: No pain, No vomiting, No diarrhea Female : No dysuria, No urinary frequency Neurologic: + weakness (sleeps easily), No memory loss Psychiatric: No depression symptoms, No anhedonism Objective Vital Signs Date Time Temp Pulse Resp B/P (MAP) Pulse Ox O2 Delivery O2 Flow Rate FiO2 09/20/17 07:56 36.8 86 18 129/68 (88) 93 Room Air 09/20/17 04:00 Room Air 09/20/17 03:37 36.5 86 19 144/65 (91) 94 Room Air 09/20/17 00:00 Room Air 09/19/17 23:12 36.7 68 20 132/66 (88) 93 09/19/17 20:00 Room Air 09/19/17 19:21 36.4 79 18 126/70 (88) 95 Room Air 09/19/17 16:33 70 09/19/17 16:00 93 Room Air 2.0 09/19/17 14:47 36.6 75 16 110/60 (77) 93 Room Air 09/19/17 12:00 93 Room Air 2.0 09/19/17 11:49 36.5 69 18 118/62 (80) 93 Room Air Physical Exam General Appearance: WD/WN, + mild distress Eyes: normal inspection, sclerae normal Respiratory/Chest: + decreased breath sounds, + accessory muscle use Cardiovascular: regular rate, rhythm, + systolic murmur Abdomen: normal bowel sounds, non tender, soft Extremities: no pedal edema, no calf tenderness Neurologic/Psychiatric: alert, oriented x 3 Laboratory Results Last 24 Hours Test 09/19/17 11:09 09/19/17 16:22 09/19/17 20:19 09/20/17 05:09 Bedside Glucose 113 mg/dl 224 mg/dl 121 mg/dl White Blood Count 7.76 K/uL Red Blood Count 3.20 M/uL Hemoglobin 9.8 g/dL Hematocrit 30.1 % Mean Corpuscular Volume 94.1 fL Mean Corpuscular Hemoglobin 30.6 pg Mean Corpuscular Hemoglobin Concent 32.6 g/dl RDW Standard Deviation 64.4 fL RDW Coefficient of Variation 18.9 % Platelet Count 123 K/uL Mean Platelet Volume 8.9 fL Sodium Level 134 mmol/L Potassium Level 4.4 mmol/L Chloride Level 100 mmol/L Carbon Dioxide Level 27 mmol/L Anion Gap 7.0 mmol/L Blood Urea Nitrogen 20 mg/dl Creatinine 1.03 mg/dl Est Creatinine Clear Calc Drug Dose 35.3 ml/min Estimated GFR () 56.2 Estimated GFR (Non- 48.5 BUN/Creatinine Ratio 19.2 Random Glucose 126 mg/dl Calcium Level 8.8 mg/dl Magnesium Level 2.3 mg/dl Test 09/20/17 06:46 Bedside Glucose 120 mg/dl Assessment and Plan 86yo female with history of HTN, hypothyroidism, a. fib, SSS s/p pacemaker placement, and recent type A aortic dissection s/p repair at [facility] on 08/22/17 who presented with extreme fatigue beginning on the AM of admission and REY since her surgery. . Encephalopathy, toxic or metabolic gram negative gal UTI which could be large factor in her fatigue. Remeron was stopped and uti treated UTI w/ rocephin started 09/17, acute/chronic anemia - again baseline Hb is about 9. Iron studies with trans sat <20% - consider oral iron. S/p 1 unit PRBCs 09/18 - acute/chronic diastolic CHF - possible - CXR at presentation Repeat cxr 09/19 still with pulm edema/effusions which could be post operative will have u/s curt and estimate Echo results reviewed (preserved EF, normal CVP). . resume lasix 20mg PO qam. pacemaker status - will interrogate to ensure proper pacer function and rule out a rhythm issue that could have contributed to diastolic heart failure a. fib - continue BB, digoxin, and xarelto. Dig level acceptable. hypothyroidism - clinically stable on Synthroid; TSH compensated. recent insomnia - remeron stopped will follow and avoid medications CKD stage 4 - creatinine is stable and actually slightly better today. DVT proph - xarelto. recent type A aortic dissection repair - in light of age made incredible recovery. PT, OT to help w/ her deconditioning. T2DM - hold metformin. BSG's ac/hs. Novolog correction/carb coverage for now. Goal range 120-180. 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 tylenol 1gm TID and order K-pad. Continued [facility] stay due to: ambulation difficulties, multiple IV medications needed Discharge planning: uncertain
--- NOTE | 2017-09-20 10:34 | DIAGNOSTIC IMAGING REPORT ---
EFFUSION-CHEST/MEDIASTINUM CLINICAL HISTORY: eval for volume of fluid. Pleural effusions. COMPARISON STUDY: Chest 09/19/2017. FINDINGS: There is a proximal 640 cc of fluid within the right pleural space. This was marked for thoracentesis. There is 325 cc of fluid within the left pleural space. This was not marked for thoracentesis due to the intervening lung. IMPRESSION: Moderate right and small left pleural effusions as described above. Electronically signed by: Jose Moreno M.D. 09/20/2017 10:33 AM Dictated Date/Time: 09/20/2017 10:32 AM
[2017-09-20] MEDS: DIGOXIN 0.125 MG TAB PO SCH (16:16)
[2017-09-20] MEDS: RIVAROXABAN TAB 15 MG TAB PO SCH (16:16)
[2017-09-20] MEDS: CEFTRIAXONE SOD INJ 1 GM in DEXTROSE 5% ADD-VANTAGE 50ML 50 ML IV SCH (20:43)
[2017-09-21] VITALS: O2SAT 93
[2017-09-21] MEDS ORDERED: TRAMADOL HCL 50 MG TAB PO STA (01:39)
[2017-09-21] MEDS: LEVOTHYROXINE 75 MCG TAB PO SCH (06:30)
[2017-09-21 07:59] VITALS: BP 115/63; PULSE 76; TEMP 36.5; O2SAT 94
[2017-09-21] MEDS: FERROUS SULFATE 325 MG TAB PO SCH ×2 (08:08→20:03)
[2017-09-21] MEDS: METOPROLOL TARTRATE 25 MG TAB PO SCH ×2 (08:08→20:03)
[2017-09-21] MEDS: ATORVASTATIN 40 MG TAB PO SCH (08:09)
[2017-09-21] MEDS: CYANOCOBALAMIN 500 MCG TAB (VIT B-12) PO SCH (08:09)
[2017-09-21] MEDS: CHOLECALCIFEROL 1000 INTER.UNIT TAB PO SCH (08:09)
[2017-09-21] MEDS: AMLODIPINE BESYLATE 5 MG TAB PO SCH (08:09)
[2017-09-21] MEDS: FUROSEMIDE 20 MG TAB PO SCH (08:10)
[2017-09-21] MEDS: MULTIVITAMIN TAB PO SCH (08:10)
[2017-09-21] MEDS: ACETAMINOPHEN 500 MG TAB PO SCH ×3 (08:11→20:03)
[2017-09-21 08:15] VITALS: O2SAT 96
[2017-09-21] MEDS: INSULIN ASPART 100 UNITS/ML 3 ML PEN SC SCH ×4 (08:48→21:00)
[2017-09-21] MEDS ORDERED: ALPRAZOLAM 0.25 MG TAB PO PRN (09:00)
[2017-09-21] MEDS: CIPROFLOXACIN / D5W 400 MG in PREMIXED IN D5W 200 ML IV SCH ×2 (10:57→21:03)
--- NOTE | 2017-09-21 12:09 | Pulmonary Consultation ---
History General Date of Service: Sep 21, 2017. Stated Complaint: Anemia, Hypoxia HPI The patient is a 86 year old female who presents to [facility] with complaints of Anemia, Hypoxia. The patient's primary care provider is Asa Chavez M.D. PMHx includes: atrial fibrillation on Xarelto, SSS, diabetes mellitus II, h.o TIA, CKD, mild cognitive impairment, lymphoplasmacytic lymphoma with monoclonal gammopathy,, hypothyroid, Recent history notable admission to [facility] 08/22/17 - 08/28/17 for urgent repair of Type A aortic dissection. Post-operatively, she did well and was seen by speech for facial droop and swallow. She transitioned to [facility] 08/28/17 - 09/09/17. Patient history is difficulty to obtain secondary to mental status. Much of this history is obtained from her chart. On admission 09/18/17 patient presented with profound weakness. WBC: 7.99, Hgb/ Hct: 7.7/24.2, Plts: 125. Sodium: 125. Cr: 1.42 Urine: + e.coli and quinolone sensitive pseudomonas. She was transfused 1-unit of packed red-blood cells. Head CT: no acute changes. CXR noted layering pleural effusions with bibasilar consolidative -type changes. She was treated with diuresis. LE US: unremarkable. Per nursing her complaints of dyspnea have been intermittent present both at rest and with activity at times. No cough or purulence. Echocardiogram 09/18/17: Grade II diastolic dysfunction. Severe aortic stenosis. EF: 60-65%, RVS: 30-40mmHg. 09/20/17 Mediastinal ultrasound: 640cc - right (marked), 325cc - left The remainder of her pulmonary history is difficult to obtain. She denies prior diagnosis of asthma/COPD or frequent respiratory infections. She is a life-long non-smoker and denies any history of second hand exposure. She has lived in both 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 She denies any occupational or industrial exposures. Historian: patient Past Medical History Past Medical History: 1. Atrial fibrillation on anticoagulation 2. H/O diabetes mellitus 3. Chronic kidney disease 4. h/o TIA 5. Cognitive impairment 6. lymphoplasmacytic lymphoma 7. 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) Immunizations History of Influenza Vaccine: Yes History of Tetanus Vaccine?: No History of Pneumococcal: Unknown History of Hepatitis B Vaccine: No History of MDRO History of MDRO: No Allergies Coded Allergies: Celecoxib (Verified Allergy, Unknown, Unknown, 08/13/16) Current Medications Reported Home Medications Medications Dose Route/Sig Max Daily Dose Days Date Category Lopressor (Metoprolol Tartrate) 25 Mg Tab 25 Mg PO BID 09/18/17 Reported Lasix (Furosemide) 20 Mg Tab 20 Mg PO BID 09/18/17 Reported Calcium + D (Calcium Carbonate-Vitamin D) 1 Tab Tab 1 Tab PO BID 09/18/17 Reported Remeron Soltab (Mirtazapine) 15 Mg Soltab 7.5 Mg PO HS 09/18/17 Reported Lipitor (Atorvastatin Calcium) 40 Mg Tab 40 Mg PO DAILY 09/18/17 Reported Norvasc (Amlodipine Besylate) 10 Mg Tab 10 Mg PO DAILY 09/18/17 Reported Digoxin 0.125 Mg Tab 0.125 Mg PO QPM 08/22/17 Reported Levothyroxine Sodium 75 Mcg Tab 75 Mcg PO DAILYBB 08/22/17 Reported Xarelto (Rivaroxaban) 10 Mg Tab 15 Mg PO QPM 08/13/16 Reported Vitamin D 1000 Unit (Cholecalciferol) 1,000 Unit Cap 1,000 Inter.unit PO DAILY 11/26/15 Reported Vitamin B12 (Cyanocobalamin) 1,000 Mcg Tab 1,000 Mcg PO QAM 03/13/15 Reported Multivitamin (Multiple Vitamin) 1 Tab Tab 1 Tab PO DAILY 01/15/15 Reported Glucophage (Metformin Hcl) 1,000 Mg Tab 500 Mg PO BID 01/15/15 Reported Physical Physical Exam Vital Signs: Date Time Temp Pulse Resp B/P (MAP) Pulse Ox O2 Delivery O2 Flow Rate FiO2 09/21/17 07:59 36.5 76 17 115/63 (80) 94 09/21/17 00:00 93 Room Air 09/20/17 23:57 36.8 62 18 121/69 (86) 93 Room Air 09/20/17 18:30 36.4 63 18 119/53 (75) 93 09/20/17 16:16 64 09/20/17 16:02 Room Air 09/20/17 15:49 36.6 63 16 128/64 (85) 96 Room Air 09/20/17 13:43 36.5 59 18 93 2.0 09/20/17 12:02 Room Air 09/20/17 11:57 36.5 59 18 107/54 (71) 93 Room Air Constitutional: Frail elderly female sitting in chair at bedside. Somnolent. Chest: Surgical scar right anterior chest and mid-sternal - well articulated Respiratorily: Non-labored respirations. Diminished at bases and bottom 1/2 on right and 1/3 on left. NO audible wheeze CV: Rate regular. II/ systolic murmur. Warm and perfused peripherally Abdomen: soft, active bowel sounds MSK/Extremities: moving and developed symmetrically. Mild pedal edema bilaterally. No tenderness. Neurologic: Somnolent - falling asleep between questions. Aroused to touch. Diagnostics Labs Results Past 24 Hours Test 09/20/17 16:12 09/20/17 20:48 09/21/17 08:08 Range/Units Bedside Glucose 133 130 146 70-90 mg/dl Impression Assessment and Plan 86-yo female presents with bilateral Rt > left pleural effusions and intermittent dyspnea with recent h/o repair of type A aneurysm and currently on Xarelto in the setting of chronic renal dysfunction Case discussed with Dr. Mckay. At this time she would be unable to consent for a procedure. Dr. Mckay stated that he will discuss with her primary service prior to moving forward. Should they move forward with any procedure would require Xarelto held x 72 hours. In the meantime, continue diuresis, incentive spirometry if mental status improves to participate, and ambulation/mobility as able. Patient was seen and examined. I had a long conversation with the patient I do not believe she is mentally capable at this time to understand the pros and cons of a thoracentesis. The team will attempt to contact the patient's family for further discussion.
[2017-09-21] MEDS: DIGOXIN 0.125 MG TAB PO SCH (15:43)
[2017-09-21 16:14] VITALS: BP 125/79; PULSE 75; TEMP 36.9; O2SAT 93
[2017-09-21] MEDS: RIVAROXABAN TAB 15 MG TAB PO SCH (17:48)
--- NOTE | 2017-09-21 17:59 | Progress Note ---
Subjective Date of Service: Sep 21, 2017. Subjective pt is lethargic today and did not recieve any sedating meds, does have both E Coli and Pseudomonas in urine, changed antibiotics today, pulmonary feels the patient is too fatigued to consent and will need to be off xarelto for 72 hours prior to intervention is needed I updated daughter and grand daughter at the bedside Problem List Medical Problems: (1) Anemia Status: Acute (2) Anemia Status: Acute (3) Atrial fibrillation with RVR Status: Acute (4) CVA (cerebral vascular accident) Status: Acute (5) Generalized weakness Status: Acute (6) Hypoxia Status: Acute (7) Left-sided weakness Status: Acute (8) Low back pain Status: Acute (9) Near syncope Status: Acute (10) Paroxysmal a-fib Status: Acute (11) Pleural effusion on left Status: Acute (12) Pleural effusion on right Status: Acute (13) Rapid atrial fibrillation Status: Acute Review of Systems Constitutional: + weakness, + fatigue, No fever Respiratory: + dyspnea on exertion, No cough, No sputum, No shortness of breath Cardiac: No chest pain, No edema Abdomen: No pain, No nausea, No vomiting, No diarrhea Musculoskeletal: No joint pain, No muscle pain Neurologic: + memory loss, + weakness Psychiatric: No depression symptoms, No anhedonism Objective Vital Signs Date Time Temp Pulse Resp B/P (MAP) Pulse Ox O2 Delivery O2 Flow Rate FiO2 09/21/17 16:14 36.9 75 18 125/79 (94) 93 Room Air 09/21/17 16:00 Room Air 09/21/17 15:43 70 09/21/17 08:15 96 Room Air 09/21/17 07:59 36.5 76 17 115/63 (80) 94 09/21/17 00:00 93 Room Air 09/20/17 23:57 36.8 62 18 121/69 (86) 93 Room Air 09/20/17 18:30 36.4 63 18 119/53 (75) 93 Physical Exam General Appearance: WD/WN, + moderate distress Eyes: normal inspection, sclerae normal Respiratory/Chest: no respiratory distress, + respiratory distress (mild) Cardiovascular: regular rate, rhythm, + systolic murmur Abdomen: normal bowel sounds, non tender, soft Extremities: no pedal edema, no calf tenderness Neurologic/Psychiatric: alert, + disoriented Skin: normal color, warm/dry, no rash Laboratory Results Last 24 Hours Test 09/20/17 20:48 09/21/17 08:08 09/21/17 11:48 09/21/17 16:38 Bedside Glucose 130 mg/dl 146 mg/dl 105 mg/dl 108 mg/dl Assessment and Plan 86yo female e coli and pseudomonas uti poa and encephalopathy, with fatigue, has a history of HTN, hypothyroidism, a. fib, SSS s/p pacemaker placement, and recent type A aortic dissection s/p repair at [facility] on 08/22/17 . Encephalopathy, toxic or metabolic Ecoli and Pseudomonas UTI poa Remeron was stopped and uti treated w/ rocephin started 09/17, sensitivities suggest cipro may be best to treat both pathogens acute/chronic anemia - again baseline Hb is about 9. Iron studies with trans sat <20% - oral iron. S/p 1 unit PRBCs 09/18 - acute/chronic diastolic CHF - Repeat cxr 09/19 still with pulm edema/effusions which could be post operative u/ s suggests 600 and 300, pulmonary evaluation not sure they are clinically relevant Echo results reviewed (preserved EF, normal CVP). . resume lasix 20mg PO qam. pacemaker status - interrogation complete a. fib - continue BB, digoxin, and xarelto. Dig level acceptable. hypothyroidism - clinically stable on Synthroid; TSH compensated. recent insomnia - remeron stopped but now has daytime sleepiness CKD stage 4 - follow and improving DVT proph - Xarelto. PT, OT to help w/ her deconditioning. T2DM - hold metformin. BSG's ac/hs. NovoLog correction/Carb coverage for now. Goal range 120-180. 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 Tylenol 1gm TID and order K-pad. Continued [facility] stay due to: ambulation difficulties, multiple IV medications needed Discharge planning: uncertain
[2017-09-22 00:03] VITALS: BP 104/63; PULSE 60; TEMP 36.7; O2SAT 93
[2017-09-22] MEDS: LEVOTHYROXINE 75 MCG TAB PO SCH (05:51)
[2017-09-22] MEDS: ATORVASTATIN 40 MG TAB PO SCH (07:16)
[2017-09-22] MEDS: CYANOCOBALAMIN 500 MCG TAB (VIT B-12) PO SCH (07:17)
[2017-09-22] MEDS: AMLODIPINE BESYLATE 5 MG TAB PO SCH (07:17)
[2017-09-22] MEDS: ACETAMINOPHEN 500 MG TAB PO SCH ×3 (07:17→20:35)
[2017-09-22] MEDS: CHOLECALCIFEROL 1000 INTER.UNIT TAB PO SCH (07:17)
[2017-09-22] MEDS: METOPROLOL TARTRATE 25 MG TAB PO SCH ×2 (07:18→20:34)
[2017-09-22] MEDS: FERROUS SULFATE 325 MG TAB PO SCH ×2 (07:18→20:34)
[2017-09-22] MEDS: FUROSEMIDE 20 MG TAB PO SCH (07:18)
[2017-09-22] MEDS: MULTIVITAMIN TAB PO SCH (07:18)
[2017-09-22 07:22] VITALS: BP 133/66; PULSE 64; TEMP 36.5; O2SAT 95
[2017-09-22 07:26] LABS: HEMATOCRIT 27.6 % (37-47); HEMOGLOBIN 8.6 g/dL (12.0-16.0); MEAN CELL VOLUME 93.9 fL (80-100); MEAN CORPUSCULAR HEMOGLOBIN 29.3 pg (25-34); MEAN CORPUSCULAR HGB CONC 31.2 g/dl (32-36); MEAN PLATELET VOLUME 9.1 fL (7.4-10.4); PLATELET COUNT 104 K/uL (130-400); RED CELL DISTRIBUTION WIDTH CV 18.7 % (11.5-14.5); RED CELL DISTRIBUTION WIDTH SD 64.1 fL (36.4-46.3); WHITE BLOOD COUNT 5.71 K/uL (4.8-10.8)
[2017-09-22 07:48] LABS: CALCIUM 8.5 mg/dl (8.5-10.1); CREATININE 1.19 mg/dl (0.60-1.20); POTASSIUM 4.4 mmol/L (3.5-5.1)
[2017-09-22] MEDS: CIPROFLOXACIN / D5W 400 MG in PREMIXED IN D5W 200 ML IV SCH ×2 (08:47→20:37)
[2017-09-22] MEDS: INSULIN ASPART 100 UNITS/ML 3 ML PEN SC SCH ×4 (10:33→20:49)
[2017-09-22] MEDS: PANTOprazole INJ 40 MG in SYRINGE 0 ML IV SCH ×2 (10:33→20:37)
--- NOTE | 2017-09-22 10:59 | Pulmonology Progress Note ---
Pulmonary Progress Note Date of Service Sep 22, 2017. Attending Dr. Mckay Subjective Patient is able to sit up in her chair and complete full sentences without noticing any shortness of breath. She still complains of some dyspnea associated with physical activity. This is been consistent since her surgical intervention. Objective Patient looks comfortable able to complete full sentences not using accessory muscles are notably having any tachypnea during our conversation. Vital signs: Stable on room air Respiratory: Decreased breath sounds with dullness to percussion at the bases bilaterally Cardiac: S1-S2 distant heart sounds regular rate at this time Extremities: No clubbing cyanosis or edema noted no lower extremities Abdomen: No bloating, positive bowel sounds soft nontender Assessment & Plan 78-year-old female admitted with CHF exacerbation bilateral pleural effusions: 1. Pleural Effusions: Patient does have bilateral moderate-sized pleural effusions. I spoke to the patient, her family, the primary care team and discussed the option of possible thoracentesis. At this time the patient's Eliquis is currently being held for possible thoracentesis/intervention. We have to hold this for least a 48 hour window prior to thoracentesis which would make the thoracentesis if performed/early is date on the morning of 09/24/2017. At this time the patient is clinically improving and I will obtain a CXR in the a.m. to monitor her bilateral pleural effusions. Data Medications: Current Inpatient Medications Medications (Trade) Dose Ordered Sig/Marija Route Start Time Stop Time Status Last Admin Dose Admin Polyethylene (Miralax Powder Packet) 17 gm DAILY PRN PO 09/18/17 08:45 10/18/17 08:44 Amlodipine Besylate (Norvasc Tab) 10 mg DAILY PO 09/18/17 09:00 10/18/17 08:59 09/22/17 07:17 10 MG Atorvastatin Calcium (Lipitor Tab) 40 mg DAILY PO 09/18/17 09:00 10/18/17 08:59 09/22/17 07:16 40 MG Cholecalciferol (Vitamin D Tab) 1,000 inter.unit DAILY PO 09/18/17 09:00 10/18/17 08:59 09/22/17 07:17 1,000 INTER.UNIT Digoxin (Lanoxin Tab) 0.125 mg DAILY@1600 PO 09/18/17 16:00 2/11/18 15:59 09/21/17 15:43 0.125 MG Levothyroxine Sodium (Synthroid Tab) 75 mcg DAILYBB PO 09/19/17 06:00 10/19/17 06:59 09/22/17 05:51 75 MCG Metoprolol Tartrate (Lopressor Tab) 25 mg BID PO 09/18/17 09:00 10/18/17 08:59 09/22/17 07:18 25 MG Multivitamins (Multivitamin Tab) 1 tab DAILY PO 09/18/17 09:00 10/18/17 08:59 09/22/17 07:18 1 TAB Rivaroxaban (Xarelto Tab) 15 mg QDD PO 09/18/17 16:45 10/18/17 16:44 Future Hold 09/21/17 17:48 15 MG Cyanocobalamin (Vitamin B-12 Tab) 1,000 mcg QAM PO 09/18/17 09:00 10/18/17 08:59 09/22/17 07:17 1,000 MCG Insulin Aspart (novoLOG ASPART) SLIDING SCALE G... ACHS SC 09/18/17 16:15 10/18/17 16:14 09/21/17 08:48 1 UNITS Haloperidol (Haldol Tab) 0.5 mg Q6H PRN PO 09/18/17 19:15 10/18/17 19:14 Acetaminophen (Tylenol Tab) 1,000 mg TID PO 09/19/17 11:00 10/18/17 08:44 09/22/17 07:17 1,000 MG Furosemide (Lasix Tab) 20 mg QAM PO 09/19/17 10:45 10/19/17 10:44 09/22/17 07:18 20 MG Ferrous Sulfate (Feosol Tab) 325 mg BID PO 09/20/17 09:00 10/20/17 08:59 09/22/17 07:18 325 MG Alprazolam (Xanax Tab) 0.25 mg Q6H PRN PO 09/21/17 09:00 10/21/17 08:59 09/21/17 20:02 0.25 MG Ciprofloxacin/ Dextrose 400 mg/ Prmx 200 ml @ 100 mls/hr Q12 IV 09/21/17 09:30 10/01/17 09:29 09/22/17 08:47 100 MLS/HR Pantoprazole Sodium 40 mg/ Syringe 10 ml @ 5 mls/min DAILY@ IV 09/22/17 09:00 10/22/17 08:59 09/22/17 10:33 5 MLS/MIN Vital Signs: Date Time Temp Pulse Resp B/P (MAP) Pulse Ox O2 Delivery O2 Flow Rate FiO2 09/22/17 07:22 36.5 64 18 133/66 (88) 95 Room Air 09/22/17 00:03 36.7 60 16 104/63 (77) 93 Room Air 09/22/17 00:00 Room Air 09/21/17 16:14 36.9 75 18 125/79 (94) 93 Room Air 09/21/17 16:00 Room Air 09/21/17 15:43 70 Laboratory Results: Last 24 Hours Test 09/21/17 11:48 09/21/17 16:38 09/21/17 20:32 09/22/17 06:58 Bedside Glucose 105 mg/dl 108 mg/dl 164 mg/dl White Blood Count 5.71 K/uL Red Blood Count 2.94 M/uL Hemoglobin 8.6 g/dL Hematocrit 27.6 % Mean Corpuscular Volume 93.9 fL Mean Corpuscular Hemoglobin 29.3 pg Mean Corpuscular Hemoglobin Concent 31.2 g/dl RDW Standard Deviation 64.1 fL RDW Coefficient of Variation 18.7 % Platelet Count 104 K/uL Mean Platelet Volume 9.1 fL Sodium Level 131 mmol/L Potassium Level 4.4 mmol/L Chloride Level 97 mmol/L Carbon Dioxide Level 25 mmol/L Anion Gap 9.0 mmol/L Blood Urea Nitrogen 25 mg/dl Creatinine 1.19 mg/dl Est Creatinine Clear Calc Drug Dose 30.6 ml/min Estimated GFR () 47.2 Estimated GFR (Non- 40.7 BUN/Creatinine Ratio 20.8 Random Glucose 122 mg/dl Calcium Level 8.5 mg/dl Magnesium Level 2.2 mg/dl Test 09/22/17 07:43 Bedside Glucose 126 mg/dl
[2017-09-22 12:00] LABS: HEMATOCRIT 27.9 % (37-47); HEMOGLOBIN 8.9 g/dL (12.0-16.0)
[2017-09-22] MEDS ORDERED: FUROSEMIDE 20 MG TAB PO ONE (12:15)
[2017-09-22 16:14] VITALS: O2SAT 97
[2017-09-22] MEDS: DIGOXIN 0.125 MG TAB PO SCH (16:14)
[2017-09-22 16:26] VITALS: BP 118/63; PULSE 70; TEMP 36.2; O2SAT 97
--- NOTE | 2017-09-22 18:52 | Progress Note ---
Subjective Date of Service: Sep 22, 2017. Subjective this pt is lethargic today, not clear why, pulmonary med is planning on possible thoracentesis once off doac. family is not at bedside pt did drop hgb in am but on recheck remained stable, is on iron and this would make [facility] not reliable Problem List Medical Problems: (1) Anemia Status: Acute (2) Anemia Status: Acute (3) Atrial fibrillation with RVR Status: Acute (4) CVA (cerebral vascular accident) Status: Acute (5) Generalized weakness Status: Acute (6) Hypoxia Status: Acute (7) Left-sided weakness Status: Acute (8) Low back pain Status: Acute (9) Near syncope Status: Acute (10) Paroxysmal a-fib Status: Acute (11) Pleural effusion on left Status: Acute (12) Pleural effusion on right Status: Acute (13) Rapid atrial fibrillation Status: Acute Review of Systems Constitutional: + weakness, + fatigue, No fever, No chills Respiratory: + shortness of breath, + dyspnea on exertion, No cough Cardiac: No chest pain, No edema Abdomen: No pain, No nausea, No vomiting, No diarrhea Musculoskeletal: No joint pain, No muscle pain Female : No dysuria, No urinary frequency, No hematuria, No incontinence Psychiatric: No depression symptoms, No anhedonism Objective Vital Signs Date Time Temp Pulse Resp B/P (MAP) Pulse Ox O2 Delivery O2 Flow Rate FiO2 09/22/17 07:22 36.5 64 18 133/66 (88) 95 Room Air 09/22/17 00:03 36.7 60 16 104/63 (77) 93 Room Air 09/22/17 00:00 Room Air 09/21/17 16:14 36.9 75 18 125/79 (94) 93 Room Air 09/21/17 16:00 Room Air 09/21/17 15:43 70 09/21/17 08:15 96 Room Air Physical Exam General Appearance: WD/WN, + mild distress Neck: supple, no JVD Respiratory/Chest: chest non-tender, lungs clear, + decreased breath sounds Cardiovascular: regular rate, rhythm, + systolic murmur Abdomen: normal bowel sounds, non tender, soft Extremities: no pedal edema, no calf tenderness Neurologic/Psychiatric: alert, + depressed affect, + disoriented Laboratory Results Last 24 Hours Test 09/21/17 11:48 09/21/17 16:38 09/21/17 20:32 09/22/17 06:58 Bedside Glucose 105 mg/dl 108 mg/dl 164 mg/dl White Blood Count 5.71 K/uL Red Blood Count 2.94 M/uL Hemoglobin 8.6 g/dL Hematocrit 27.6 % Mean Corpuscular Volume 93.9 fL Mean Corpuscular Hemoglobin 29.3 pg Mean Corpuscular Hemoglobin Concent 31.2 g/dl RDW Standard Deviation 64.1 fL RDW Coefficient of Variation 18.7 % Platelet Count 104 K/uL Mean Platelet Volume 9.1 fL Sodium Level 131 mmol/L Potassium Level 4.4 mmol/L Chloride Level 97 mmol/L Carbon Dioxide Level 25 mmol/L Anion Gap 9.0 mmol/L Blood Urea Nitrogen 25 mg/dl Creatinine 1.19 mg/dl Est Creatinine Clear Calc Drug Dose 30.6 ml/min Estimated GFR () 47.2 Estimated GFR (Non- 40.7 BUN/Creatinine Ratio 20.8 Random Glucose 122 mg/dl Calcium Level 8.5 mg/dl Magnesium Level 2.2 mg/dl Test 09/22/17 07:43 Bedside Glucose 126 mg/dl Assessment and Plan 86yo female e coli and pseudomonas uti poa and encephalopathy, with fatigue, has a history of HTN, hypothyroidism, a. fib, SSS s/p pacemaker placement, and recent type A aortic dissection s/p repair at [facility] on 08/22/17 . Encephalopathy, toxic or metabolic Ecoli and Pseudomonas UTI poa Remeron was stopped and uti treated w/ rocephin started 09/17, sensitivities suggest cipro may be best to treat both pathogens, changes 09/21 acute/chronic anemia - again baseline Hb is about 9. has gone down slightly, may impact dyspnea Iron studies with trans sat <20% - but low binding capacity suggesting maybe anemia of chronic disease, oral iron will make hemocult positive, if lower will have GI evaluation, starting protonix, S/p 1 unit PRBCs has been low but stable acute/chronic diastolic CHF - Repeat cxr 09/19 still with pulm edema/effusions which could be post operative u/ s suggests 600 and 300, pulmonary evaluation not sure they are clinically relevant Echo results reviewed (preserved EF, normal CVP). . resume lasix 20mg PO qam. will hold anticoagulation and consider thoracentesis this week pacemaker status - interrogation complete a. fib - continue BB, digoxin, and hold xarelto for possible tap, . Dig levels had been acceptable. hypothyroidism - Synthroid; compensated tsh recent insomnia - remeron continues with daytime sleepiness CKD stage 4 - follow and improving DVT proph - Xarelto. PT, OT to help w/ her deconditioning. may need help with post op rehab T2DM - hold metformin. BSG's ac/hs. NovoLog correction/Carb coverage for now. Goal range 120-180. 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 improved wiht tylenol 1gm TID Continued [facility] stay due to: ambulation difficulties, multiple IV medications needed Discharge planning: uncertain
[2017-09-22 20:32] VITALS: BP 117/63; PULSE 85
[2017-09-23 01:02] VITALS: BP 107/62; PULSE 60; TEMP 36.9; O2SAT 98
[2017-09-23] MEDS: LEVOTHYROXINE 75 MCG TAB PO SCH (06:25)
[2017-09-23 07:39] VITALS: BP 130/66; PULSE 90; TEMP 36.6; O2SAT 92
[2017-09-23] MEDS: FERROUS SULFATE 325 MG TAB PO SCH ×2 (07:59→20:39)
[2017-09-23] MEDS: MULTIVITAMIN TAB PO SCH (08:00)
[2017-09-23] MEDS: ATORVASTATIN 40 MG TAB PO SCH (08:00)
[2017-09-23] MEDS: METOPROLOL TARTRATE 25 MG TAB PO SCH ×2 (08:00→20:41)
[2017-09-23] MEDS: AMLODIPINE BESYLATE 5 MG TAB PO SCH (08:00)
[2017-09-23] MEDS ORDERED: FUROSEMIDE 40 MG TAB PO SCH (08:00)
[2017-09-23] MEDS: ACETAMINOPHEN 500 MG TAB PO SCH ×3 (08:01→20:41)
[2017-09-23] MEDS: CIPROFLOXACIN / D5W 400 MG in PREMIXED IN D5W 200 ML IV SCH ×3 (08:01→20:42)
[2017-09-23] MEDS: CHOLECALCIFEROL 1000 INTER.UNIT TAB PO SCH (08:01)
[2017-09-23] MEDS: PANTOprazole INJ 40 MG in SYRINGE 0 ML IV SCH ×2 (08:01→08:49)
[2017-09-23] MEDS: CYANOCOBALAMIN 500 MCG TAB (VIT B-12) PO SCH (08:01)
--- NOTE | 2017-09-23 08:03 | DIAGNOSTIC IMAGING REPORT ---
CHEST ONE VIEW PORTABLE CLINICAL HISTORY: Bilateral pleural effusions. COMPARISON STUDY: Chest radiograph September 19, 2017. FINDINGS: Right axillary surgical clips, dual lead left subclavian pacemaker and median sternotomy wires are noted. Moderate cardiomegaly is unchanged. A moderate right pleural effusion has slightly increased. Small left pleural effusion is unchanged. Interstitial thickening consistent with pulmonary edema persists. There is no pneumothorax. IMPRESSION: 1. Moderate right and [id number] left pleural effusions, slightly increased. Associated bibasilar opacities likely reflect atelectasis although consolidation could appear similar. 2. No significant change in pulmonary edema. Electronically signed by: Jim Jeffery M.D. 09/23/2017 8:02 AM Dictated Date/Time: 09/23/2017 7:44 AM
[2017-09-23] MEDS: INSULIN ASPART 100 UNITS/ML 3 ML PEN SC SCH ×4 (08:56→20:53)
[2017-09-23 15:28] VITALS: BP 104/61; PULSE 72; O2SAT 98
[2017-09-23] MEDS: DIGOXIN 0.125 MG TAB PO SCH (15:31)
[2017-09-23 16:14] VITALS: BP 117/69; PULSE 60; TEMP 36.4; O2SAT 94
[2017-09-23 16:33] VITALS: O2SAT 92
--- NOTE | 2017-09-23 19:09 | Progress Note ---
Subjective Date of Service: Sep 23, 2017. Subjective pt is having a much better day today, she is eating lunch with family. Possible plan for thoracentesis soon and family was informed to think about post discharge rehab pt is not as short of breath at rest but still so with exertion. she has no chest pain Problem List Medical Problems: (1) Anemia Status: Acute (2) Anemia Status: Acute (3) Atrial fibrillation with RVR Status: Acute (4) CVA (cerebral vascular accident) Status: Acute (5) Generalized weakness Status: Acute (6) Hypoxia Status: Acute (7) Left-sided weakness Status: Acute (8) Low back pain Status: Acute (9) Near syncope Status: Acute (10) Paroxysmal a-fib Status: Acute (11) Pleural effusion on left Status: Acute (12) Pleural effusion on right Status: Acute (13) Rapid atrial fibrillation Status: Acute Review of Systems Constitutional: + weakness, + fatigue, No fever, No chills Respiratory: + shortness of breath, + dyspnea on exertion, No cough Cardiac: No chest pain, No edema Abdomen: No pain, No nausea, No vomiting, No diarrhea Female : No dysuria, No urinary frequency Psychiatric: No depression symptoms, No anhedonism, No anxiety Objective Vital Signs Date Time Temp Pulse Resp B/P (MAP) Pulse Ox O2 Delivery O2 Flow Rate FiO2 09/23/17 16:33 92 Room Air 09/23/17 16:14 36.4 60 18 117/69 (85) 94 Room Air 09/23/17 15:31 72 09/23/17 15:28 72 18 104/61 (75) 98 09/23/17 10:09 Room Air 09/23/17 07:39 36.6 90 17 130/66 (87) 92 Room Air 09/23/17 01:02 36.9 60 20 107/62 (77) 98 Nasal Cannula 2.0 09/23/17 00:00 Room Air 09/22/17 20:32 85 117/63 (81) 09/22/17 20:30 Room Air Physical Exam General Appearance: WD/WN, + mild distress, + moderate distress Neck: supple, no JVD Respiratory/Chest: chest non-tender, + decreased breath sounds, + accessory muscle use Cardiovascular: regular rate, rhythm, + systolic murmur Abdomen: normal bowel sounds, non tender, soft Extremities: no pedal edema, no calf tenderness Neurologic/Psychiatric: alert, oriented x 3 Skin: normal color, warm/dry, no rash Laboratory Results Last 24 Hours Test 09/22/17 20:06 09/23/17 07:46 09/23/17 11:44 09/23/17 16:45 Bedside Glucose 185 mg/dl 131 mg/dl 152 mg/dl 155 mg/dl Assessment and Plan 86yo female e coli and pseudomonas uti poa and encephalopathy, with fatigue, has a history of HTN, hypothyroidism, a. fib, SSS s/p pacemaker placement, and recent type A aortic dissection s/p repair at [facility] on 08/22/17 . Encephalopathy, toxic or metabolic Ecoli and Pseudomonas UTI poa Remeron was stopped and uti treated w/ rocephin started 09/17, sensitivities suggest cipro may be best to treat both pathogens, changed 09/21 improves daily acute/chronic anemia - impacts dyspnea Iron studies with trans sat <20% - but low binding capacity suggesting maybe anemia of chronic disease, on oral iron S/p 1 unit PRBCs has been low but stable acute/chronic diastolic CHF - Repeat cxr 09/19 still with pulm edema/effusions which could be post operative u/ s suggests 600 and 300, pulmonary evaluation not sure they are clinically relevant Echo results reviewed (preserved EF, normal CVP). . lasix 20mg PO qam. continue to hold anticoagulation and consider thoracentesis this week pacemaker status - interrogation complete a. fib - continue BB, digoxin, and holding xarelto for possible tap, . Dig levels had been acceptable. hypothyroidism - stable with Synthroid; recent insomnia - improving CKD stage 4 - improving DVT proph - on hold will resume when able PT, OT to help w/ her deconditioning. may need help with post op rehab T2DM - hold metformin. BSG's ac/hs. NovoLog correction/Carb coverage for now. Goal range 120-180. 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 improved wiht tylenol 1gm TID Continued [facility] stay due to: ambulation difficulties, multiple IV medications needed Discharge planning: uncertain
[2017-09-23] MEDS: PANTOprazole SOD 40 MG TAB PO SCH (20:42)
[2017-09-23 23:39] VITALS: BP 114/61; PULSE 61; TEMP 36.8; O2SAT 91
[2017-09-24 02:54] VITALS: BP 133/64; O2SAT 95
[2017-09-24] MEDS: HALOPERIDOL 0.5 MG TAB PO PRN ×2 (02:57→04:44)
[2017-09-24 06:33] LABS: HEMATOCRIT 27.3 % (37-47); HEMOGLOBIN 8.9 g/dL (12.0-16.0); MEAN CELL VOLUME 94.1 fL (80-100); MEAN CORPUSCULAR HEMOGLOBIN 30.7 pg (25-34); MEAN CORPUSCULAR HGB CONC 32.6 g/dl (32-36); MEAN PLATELET VOLUME 9.1 fL (7.4-10.4); PLATELET COUNT 123 K/uL (130-400); RED CELL DISTRIBUTION WIDTH CV 18.5 % (11.5-14.5); RED CELL DISTRIBUTION WIDTH SD 63.4 fL (36.4-46.3); WHITE BLOOD COUNT 6.28 K/uL (4.8-10.8)
[2017-09-24 07:03] LABS: CALCIUM 8.6 mg/dl (8.5-10.1); CREATININE 1.49 mg/dl (0.60-1.20); POTASSIUM 4.2 mmol/L (3.5-5.1)
[2017-09-24 07:32] VITALS: BP 135/74; PULSE 82; TEMP 36.4; O2SAT 94
[2017-09-24] MEDS: LEVOTHYROXINE 75 MCG TAB PO SCH (08:33)
[2017-09-24] MEDS: FERROUS SULFATE 325 MG TAB PO SCH ×2 (08:33→20:30)
[2017-09-24] MEDS: PANTOprazole SOD 40 MG TAB PO SCH ×2 (08:34→20:31)
[2017-09-24] MEDS: MULTIVITAMIN TAB PO SCH (08:34)
[2017-09-24] MEDS: METOPROLOL TARTRATE 25 MG TAB PO SCH ×2 (08:34→20:30)
[2017-09-24] MEDS: AMLODIPINE BESYLATE 5 MG TAB PO SCH (08:34)
[2017-09-24] MEDS: ATORVASTATIN 40 MG TAB PO SCH (08:34)
[2017-09-24] MEDS: CIPROFLOXACIN / D5W 400 MG in PREMIXED IN D5W 200 ML IV SCH ×2 (08:35→20:32)
[2017-09-24] MEDS: CHOLECALCIFEROL 1000 INTER.UNIT TAB PO SCH (08:35)
[2017-09-24] MEDS: ACETAMINOPHEN 500 MG TAB PO SCH ×3 (08:35→20:32)
[2017-09-24] MEDS: CYANOCOBALAMIN 500 MCG TAB (VIT B-12) PO SCH (08:35)
[2017-09-24] MEDS: INSULIN ASPART 100 UNITS/ML 3 ML PEN SC SCH ×4 (08:40→21:00)
--- NOTE | 2017-09-24 11:10 | Pulmonology Progress Note ---
Pulmonary Progress Note Date of Service Sep 24, 2017. Attending Dr. Mckay Objective Able sit up in bed with no use of accessary muscles or SOB Vital signs: Stable on room air Respiratory: Decreased breath sounds with dullness to percussion at the bases bilaterally Cardiac: S1-S2 distant heart sounds regular rate at this time Extremities: No clubbing cyanosis or edema noted no lower extremities Abdomen: No bloating, positive bowel sounds soft nontender Thoracic US: small left sided pleural effusion with large right sided effusion Assessment & Plan 78-year-old female admitted with CHF exacerbation bilateral pleural effusions: 1. Pleural Effusions: S/P thoracenteses. Notable bloody ? hemothorax will send for a pleural fluid hematocrit Data Medications: Current Inpatient Medications Medications (Trade) Dose Ordered Sig/Marija Route Start Time Stop Time Status Last Admin Dose Admin Polyethylene (Miralax Powder Packet) 17 gm DAILY PRN PO 09/18/17 08:45 10/18/17 08:44 Amlodipine Besylate (Norvasc Tab) 10 mg DAILY PO 09/18/17 09:00 10/18/17 08:59 09/24/17 08:34 10 MG Atorvastatin Calcium (Lipitor Tab) 40 mg DAILY PO 09/18/17 09:00 10/18/17 08:59 09/24/17 08:34 40 MG Cholecalciferol (Vitamin D Tab) 1,000 inter.unit DAILY PO 09/18/17 09:00 10/18/17 08:59 09/24/17 08:35 1,000 INTER.UNIT Digoxin (Lanoxin Tab) 0.125 mg DAILY@1600 PO 09/18/17 16:00 10/18/17 15:59 09/23/17 15:31 0.125 MG Levothyroxine Sodium (Synthroid Tab) 75 mcg DAILYBB PO 09/19/17 06:00 10/19/17 06:59 09/24/17 08:33 75 MCG Metoprolol Tartrate (Lopressor Tab) 25 mg BID PO 09/18/17 09:00 10/18/17 08:59 09/24/17 08:34 25 MG Multivitamins (Multivitamin Tab) 1 tab DAILY PO 09/18/17 09:00 10/18/17 08:59 09/24/17 08:34 1 TAB Rivaroxaban (Xarelto Tab) 15 mg QDD PO 09/18/17 16:45 10/18/17 16:44 Future Hold 09/21/17 17:48 15 MG Cyanocobalamin (Vitamin B-12 Tab) 1,000 mcg QAM PO 09/18/17 09:00 10/18/17 08:59 09/24/17 08:35 1,000 MCG Insulin Aspart (novoLOG ASPART) SLIDING SCALE G... ACHS SC 09/18/17 16:15 10/18/17 16:14 09/24/17 08:40 1 UNITS Haloperidol (Haldol Tab) 0.5 mg Q6H PRN PO 09/18/17 19:15 10/18/17 19:14 09/24/17 04:44 0.5 MG Acetaminophen (Tylenol Tab) 1,000 mg TID PO 09/19/17 11:00 10/18/17 08:44 09/24/17 08:35 1,000 MG Ferrous Sulfate (Feosol Tab) 325 mg BID PO 09/20/17 09:00 10/20/17 08:59 09/24/17 08:33 325 MG Ciprofloxacin/ Dextrose 400 mg/ Prmx 200 ml @ 100 mls/hr Q12 IV 09/21/17 09:30 10/01/17 09:29 09/24/17 08:35 100 MLS/HR Pantoprazole Sodium (Protonix Tab) 40 mg BID PO 09/23/17 20:00 09/27/17 19:59 09/24/17 08:34 40 MG Vital Signs: Date Time Temp Pulse Resp B/P (MAP) Pulse Ox O2 Delivery O2 Flow Rate FiO2 09/24/17 10:09 Room Air 09/24/17 07:32 36.4 82 18 135/74 (94) 94 Room Air 09/24/17 02:54 133/64 (87) 95 Room Air 09/24/17 00:00 Room Air 09/23/17 23:39 36.8 61 20 114/61 (78) 91 Room Air 09/23/17 16:33 92 Room Air 09/23/17 16:14 36.4 60 18 117/69 (85) 94 Room Air 09/23/17 15:31 72 09/23/17 15:28 72 18 104/61 (75) 98 Laboratory Results: Last 24 Hours Test 1/17/18 11:44 09/23/17 16:45 09/23/17 19:55 09/24/17 02:53 Bedside Glucose 152 mg/dl 155 mg/dl 168 mg/dl 122 mg/dl Test 09/24/17 06:02 09/24/17 07:48 White Blood Count 6.28 K/uL Red Blood Count 2.90 M/uL Hemoglobin 8.9 g/dL Hematocrit 27.3 % Mean Corpuscular Volume 94.1 fL Mean Corpuscular Hemoglobin 30.7 pg Mean Corpuscular Hemoglobin Concent 32.6 g/dl RDW Standard Deviation 63.4 fL RDW Coefficient of Variation 18.5 % Platelet Count 123 K/uL Mean Platelet Volume 9.1 fL Sodium Level 131 mmol/L Potassium Level 4.2 mmol/L Chloride Level 98 mmol/L Carbon Dioxide Level 26 mmol/L Anion Gap 7.0 mmol/L Blood Urea Nitrogen 25 mg/dl Creatinine 1.49 mg/dl Est Creatinine Clear Calc Drug Dose 24.4 ml/min Estimated GFR () 36.0 Estimated GFR (Non- 31.0 BUN/Creatinine Ratio 17.0 Random Glucose 169 mg/dl Calcium Level 8.6 mg/dl Bedside Glucose 138 mg/dl
[2017-09-24] MEDS ORDERED: MoRPHine SULFATE 2 MG/ML CARP ONE (11:25)
[2017-09-24] MEDS ORDERED: NURSING VERBAL MED ORDER ONE (11:30)
[2017-09-24] MEDS ORDERED: MoRPHine SULFATE 2 MG/ML CARP IV PRN (11:30)
--- NOTE | 2017-09-24 11:33 | Procedure Note ---
Procedure Note Date of Service Sep 24, 2017. Procedure Note Procedures: Right sided Thoracentesis Consent: obtained via the patient and placed into the chart Pre-Procedural Dx: CHF/Post surgical induced pleural effusion Post-Procedural Dx: CHF/Post surgical induced pleural effusion possible hemothorax Analgesia: 8cc of 1% Liquid Lidocaine Procedure: The patient was placed in an upright position and thoracic US was used to select a spot for the procedure. A spot along the posterior axillary line was marked in the 7th intercostal space. The patient was then draped and prepped in a sterile fashion. A modified Seldinger technique was then used for catheter placement. Flowing this approximately 1000cc of bloody pleural fluid was removed. The patient was then cleaned and placed at a 60 degree angle in the bed were the US was used to evaluate for possible pneumothorax. The US showed good lung sliding and starry night sign. EBL: none Complications: none
[2017-09-24 12:19] LABS: PLEURAL FLUID TOTAL PROTEIN 4.4 g/dl
[2017-09-24 12:25] LABS: ALBUMIN 2.2 gm/dl (3.4-5.0)
[2017-09-24 15:43] VITALS: BP 118/67; PULSE 63; TEMP 36.3; O2SAT 98
[2017-09-24 16:00] VITALS: O2SAT 98
[2017-09-24] MEDS: DIGOXIN 0.125 MG TAB PO SCH (16:48)
--- NOTE | 2017-09-24 18:04 | Progress Note ---
Subjective Date of Service: Sep 24, 2017. Subjective this pt is feeling somewhat better, did have thoracentesis 09/24 for [address] Mckay, it was a blood serosanguineous fluid Son, the POA, was updated and is in agreement to seek re enrollment in rehab before return to home Problem List Medical Problems: (1) Anemia Status: Acute (2) Anemia Status: Acute (3) Atrial fibrillation with RVR Status: Acute (4) CVA (cerebral vascular accident) Status: Acute (5) Generalized weakness Status: Acute (6) Hypoxia Status: Acute (7) Left-sided weakness Status: Acute (8) Low back pain Status: Acute (9) Near syncope Status: Acute (10) Paroxysmal a-fib Status: Acute (11) Pleural effusion on left Status: Acute (12) Pleural effusion on right Status: Acute (13) Rapid atrial fibrillation Status: Acute Review of Systems Constitutional: + weakness, + fatigue, No fever, No chills Respiratory: + shortness of breath, + dyspnea on exertion, No cough, No sputum , No wheezing Abdomen: No pain, No nausea, No vomiting, No diarrhea Musculoskeletal: No joint pain, No muscle pain Psychiatric: No depression symptoms, No anhedonism Objective Vital Signs Date Time Temp Pulse Resp B/P (MAP) Pulse Ox O2 Delivery O2 Flow Rate FiO2 09/24/17 16:48 66 09/24/17 15:43 36.3 63 18 118/67 (84) 98 Room Air 09/24/17 10:09 Room Air 09/24/17 07:32 36.4 82 18 135/74 (94) 94 Room Air 09/24/17 02:54 133/64 (87) 95 Room Air 09/24/17 00:00 Room Air 09/23/17 23:39 36.8 61 20 114/61 (78) 91 Room Air Physical Exam General Appearance: WD/WN, + mild distress Eyes: normal inspection, sclerae normal Neck: supple, no JVD Respiratory/Chest: chest non-tender, lungs clear, + decreased breath sounds Cardiovascular: regular rate, rhythm, no murmur Abdomen: normal bowel sounds, non tender, soft Extremities: no pedal edema, no calf tenderness Neurologic/Psychiatric: alert, oriented x 3 Laboratory Results Last 24 Hours Test 09/23/17 19:55 09/24/17 02:53 09/24/17 06:02 09/24/17 07:48 Bedside Glucose 168 mg/dl 122 mg/dl 138 mg/dl White Blood Count 6.28 K/uL Red Blood Count 2.90 M/uL Hemoglobin 8.9 g/dL Hematocrit 27.3 % Mean Corpuscular Volume 94.1 fL Mean Corpuscular Hemoglobin 30.7 pg Mean Corpuscular Hemoglobin Concent 32.6 g/dl RDW Standard Deviation 63.4 fL RDW Coefficient of Variation 18.5 % Platelet Count 123 K/uL Mean Platelet Volume 9.1 fL Sodium Level 131 mmol/L Potassium Level 4.2 mmol/L Chloride Level 98 mmol/L Carbon Dioxide Level 26 mmol/L Anion Gap 7.0 mmol/L Blood Urea Nitrogen 25 mg/dl Creatinine 1.49 mg/dl Est Creatinine Clear Calc Drug Dose 24.4 ml/min Estimated GFR () 36.0 Estimated GFR (Non- 31.0 BUN/Creatinine Ratio 17.0 Random Glucose 169 mg/dl Calcium Level 8.6 mg/dl Test 09/24/17 10:46 09/24/17 11:10 09/24/17 11:52 09/24/17 16:35 Pleural Fluid Source RIGHT LUNG Pleural Fluid Color RED Pleural Fluid Appearance CLOUDY Pleural Fluid WBC 604 /uL Pleural Fluid RBC [id number] /uL Pleural Fluid pH 7.38 Pleural Fluid Polynuclear WBCs % 12.3 % Pleural Fluid Mononuclear WBCs % 87.7 % Pleural Fluid Total Protein 4.4 g/dl Pleural Fluid LDH 135 IU Pleural Fluid Glucose 171 mg/dl Pleural Fluid Amylase 14 U/L Bedside Glucose 184 mg/dl 107 mg/dl Total Bilirubin 0.5 mg/dl Lactate Dehydrogenase 188 U/L Total Protein 7.0 gm/dl Albumin 2.2 gm/dl Assessment and Plan 86yo female e coli and pseudomonas uti poa and encephalopathy, with fatigue, has a history of HTN, hypothyroidism, a. fib, SSS s/p pacemaker placement, and recent type A aortic dissection s/p repair at [facility] on 08/22/17 . Encephalopathy, toxic or metabolic now cleared but is deconditioned and likely has some baseline dementia Remeron was stopped and Ecoli and Pseudomonas UTI poa treated w/ rocephin started 09/17, sensitivities suggest cipro may be best to treat both pathogens, changed 09/21 improves daily acute/chronic anemia - impacts dyspnea, has been stable since transfusion Iron studies with trans sat <20% - but low binding capacity suggesting maybe anemia of chronic disease, on oral iron S/p 1 unit PRBCs acute/chronic diastolic CHF - has been stable stopping lasix due to increased CR 09/24, Echo results reviewed (preserved EF, normal CVP). . Pleural effusions, s/p thoracentesis with bloody fluid, pending analysis, holding anticoagulation may consider restart 09/25 pacemaker status - interrogation complete a. fib - continue BB, digoxin, and holding xarelto resume 09/25 if no issues, . Dig levels had been acceptable. hypothyroidism - stable with Synthroid; recent insomnia - improving CKD stage 4 - improving DVT proph - on hold will resume when able PT, OT to help w/ her deconditioning. may need help with post op rehab T2DM - hold metformin. BSG's ac/hs. NovoLog correction/Carb coverage for now. Goal range 120-180. 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 improved wiht tylenol 1gm TID Continued [facility] stay due to: ambulation difficulties, multiple IV medications needed Discharge planning: uncertain
[2017-09-24 20:28] VITALS: BP 128/66; PULSE 64
[2017-09-24 23:21] VITALS: BP 115/58; PULSE 59; TEMP 36.8; O2SAT 94
[2017-09-25] MEDS: LEVOTHYROXINE 75 MCG TAB PO SCH (06:17)
[2017-09-25 07:40] VITALS: BP 131/70; PULSE 60; TEMP 36.4; O2SAT 97
[2017-09-25] MEDS: FERROUS SULFATE 325 MG TAB PO SCH ×2 (07:44→21:48)
[2017-09-25] MEDS: MULTIVITAMIN TAB PO SCH (07:44)
[2017-09-25] MEDS: METOPROLOL TARTRATE 25 MG TAB PO SCH ×2 (07:44→21:52)
[2017-09-25] MEDS: AMLODIPINE BESYLATE 5 MG TAB PO SCH (07:44)
[2017-09-25] MEDS: CYANOCOBALAMIN 500 MCG TAB (VIT B-12) PO SCH (07:44)
[2017-09-25] MEDS: ACETAMINOPHEN 500 MG TAB PO SCH ×3 (07:44→21:49)
[2017-09-25] MEDS: CHOLECALCIFEROL 1000 INTER.UNIT TAB PO SCH (07:44)
[2017-09-25] MEDS: ATORVASTATIN 40 MG TAB PO SCH (07:44)
[2017-09-25] MEDS: PANTOprazole SOD 40 MG TAB PO SCH ×2 (07:45→21:49)
[2017-09-25 08:00] VITALS: O2SAT 97
[2017-09-25] MEDS: CIPROFLOXACIN / D5W 400 MG in PREMIXED IN D5W 200 ML IV SCH (09:11)
[2017-09-25] MEDS: INSULIN ASPART 100 UNITS/ML 3 ML PEN SC SCH ×4 (09:13→21:00)
[2017-09-25 15:38] VITALS: BP 114/62; PULSE 60; TEMP 36.4; O2SAT 95
[2017-09-25] MEDS ORDERED: BISACODYL 10 MG SUPP PR ONE (15:45)
[2017-09-25 16:00] VITALS: O2SAT 95
[2017-09-25] MEDS ORDERED: POLYETHYLENE (MIRALAX) 17 GM PACK PO ONE (16:00)
[2017-09-25] MEDS: DIGOXIN 0.125 MG TAB PO SCH (18:23)
--- NOTE | 2017-09-25 18:40 | PULMONARY PROGRESS NOTE ---
DATE: 09/25/2017 PULMONARY MEDICINE PROGRESS NOTE ATTENDING: Dr. De La Garza. SUBJECTIVE: The patient is sitting up without difficulty and has very poor memory of recent events. She denies dyspnea, pleuritic pain or shortness of breath with even minimal exertion. She denies cough. On September 23, a liter of bloody effusion from the right side was drained by thoracentesis. The patient tolerated the procedure well. Apparently, the fluid was sent out for a hematocrit, to be assessed at an outside lab. Her H&H is 8.9 and 27.3, hemodynamically stable. OBJECTIVE: VITAL SIGNS: On exam, her vital signs are stable. SKIN: Without lesion. HEENT: Atraumatic. LUNGS: Decreased breath sounds, right base. CARDIAC: Regular rhythm. I do not appreciate a gallop. Grade 3/6 silvina-shaped murmur heard at the second right intercostal space. ABDOMEN: Soft, scaphoid. EXTREMITIES: Trace pedal edema, no clubbing or peripheral cyanosis. NEUROLOGIC: Intact. LABORATORY DATA: BUN 25, creatinine 1.49. ASSESSMENT AND PLAN: An 86-year-old white female seen status post repair of type A aortic dissection, now with anemia and bloody effusion who appears hemodynamically stable. At this point in time, I would like to obtain records from [facility] following the emergent transfer from our Emergency Room in August following her presentation. She does have severe aortic stenosis. I would like to obtain a CAT scan of the chest without contrast to see what the right base looks like and see if this is actually residual effusion that significant may very well require additional attention, perhaps even decortication with drainage. 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 There is no evidence hemodynamically patient is actively bleeding. [facility]
[2017-09-25] MEDS ORDERED: ONDANSETRON INJ 2 MG/ML 2 ML VIAL IV ONE (20:30)
[2017-09-25] MEDS ORDERED: SOD PHOSPHATE/SOD BIPHOSPHATE ENEMA 132 ML BTL PR ONE (20:30)
[2017-09-25] MEDS: CIPROFLOXACIN 500 MG TAB PO SCH (21:23)
[2017-09-25 21:51] VITALS: BP 120/56; PULSE 60
--- NOTE | 2017-09-25 23:00 | Progress Note ---
Progress Note Date of Service Sep 25, 2017. Progress Note Called to see patient with abdominal discomfort and nausea. PE: cardiopulm exam WNL, abdomen soft, minimal tenderness in LLQ with palpable stool, not distended, no organomegaly, BS active in all 4 quadrants Patient agreeable to Zofran and fleet enema. Follow up with nurse revealed no bowel excreted with fleet, but patient described feeling better and no further abdominal pain. Asleep on my check in Ordered KUB for AM, or sooner if pain recurs. Resident Tracking Resident Involvement: Resident Care Provided Care Provided: Adult Hospital Medicine
[2017-09-25 23:23] VITALS: BP 124/58; PULSE 61; TEMP 37.1; O2SAT 90
--- NOTE | 2017-09-26 06:02 | Progress Note ---
Subjective Date of Service: late entry for visit on Sep 25, 2017. Subjective Pt evaluation today including: conversation w/ patient, physical exam, chart review, lab review Pain: denies any chest pain or abd pain PO Intake: fair patient w/o any significant complaints during the visit she was resting comfortably denied any dyspnea or chest pain per the EMR no bowel movement her entire stay? Problem List Medical Problems: (1) Anemia Status: Acute (2) Anemia Status: Acute (3) Atrial fibrillation with RVR Status: Acute (4) CVA (cerebral vascular accident) Status: Acute (5) Generalized weakness Status: Acute (6) Hypoxia Status: Acute (7) Left-sided weakness Status: Acute (8) Low back pain Status: Acute (9) Near syncope Status: Acute (10) Paroxysmal a-fib Status: Acute (11) Pleural effusion on left Status: Acute (12) Pleural effusion on right Status: Acute (13) Rapid atrial fibrillation Status: Acute Review of Systems Constitutional: No fever, No chills Respiratory: No cough, No sputum, No shortness of breath, No dyspnea on exertion Cardiac: No chest pain, No orthopnea Abdomen: No pain Objective Vital Signs Date Time Temp Pulse Resp B/P (MAP) Pulse Ox O2 Delivery O2 Flow Rate FiO2 09/26/17 00:10 Room Air 09/25/17 23:23 37.1 61 17 124/58 (80) 90 Room Air 09/25/17 21:51 60 120/56 (77) 09/25/17 18:23 60 09/25/17 16:00 95 Room Air 09/25/17 15:38 36.4 60 18 114/62 (79) 95 Room Air 09/25/17 08:00 97 Room Air 09/25/17 07:40 36.4 60 16 131/70 (90) 97 Physical Exam General Appearance: no apparent distress ENT: pharynx normal Neck: no JVD Respiratory/Chest: no respiratory distress, no accessory muscle use, + decreased breath sounds (left base), + crackles (right base) Cardiovascular: regular rate, rhythm, no gallop, + systolic murmur (3/6 LLSB/ RUSB) Abdomen: normal bowel sounds, non tender, soft, no organomegaly Extremities: no pedal edema Neurologic/Psychiatric: alert, + disoriented Laboratory Results Last 24 Hours Test 09/25/17 08:01 1/19/18 11:23 09/25/17 16:37 09/25/17 20:27 Bedside Glucose 140 mg/dl 223 mg/dl 107 mg/dl 169 mg/dl Test 09/26/17 04:44 Assessment and Plan 86yo female with history of HTN, hypothyroidism, a. fib, SSS s/p pacemaker placement, and recent type A aortic dissection s/p repair at [facility] on 08/22/17 who presented with extreme fatigue beginning on the AM of admission and REY since her surgery. 1. extreme fatigue - likely was combination of remeron and UTI. Remeron has been d/c, and UTI has been Rx. Anemia may have played a very small role as well. TSH, dig level, etc - all normal. 2. acute/chronic anemia - s/p 1 unit of PRBCs this admission with stable Hb in the 9's since. 3. e.coli and pseudomonas UTI - cont cipro BID; ok to make IV today. 4. acute/chronic diastolic CHF - acute component clinically resolved. Holding lasix, cont BB. 5. pacemaker status - noted, stable. 6. a. fib - continue BB, digoxin. Xarelto on hold due to recent thoracentesis. Resume when ok with pulmonary. 7. hypothyroidism - cont synthroid; TSH compensated. 8. recent insomnia - remeron stopped. 9. hyperlipidemia - cont statin. 10. CKD stage 4 - creatinine is stable. 11. DVT proph - resume xarelto when ok with pulmonary. 12. HTN - controlled. 13. ?mild cognitive impairment with mild superimposed encephalopathy? - will need to touch base with family to see if she has regained baseline mental status. 14. insomnia with depression - stopped remeron due to concern of excess sedation. Consider zoloft or lexapro in patricia. 15. recent type A aortic dissection repair - in light of age made incredible recovery. PT, OT to help w/ her deconditioning. 16. T2DM - hold metformin. BSG's ac/hs. Novolog correction/carb coverage for now. Goal range 120-180. Overall control acceptable. 17. constipation - dulcolax suppos x 1. Then daily miralax. 18. hyponatremia - due to diuretics; repeat BMP in am for stability. dispo - SNF Continued [facility] stay due to: ambulation difficulties, multiple IV medications needed Discharge planning: shelter facility
[2017-09-26] MEDS: LEVOTHYROXINE 75 MCG TAB PO SCH (06:36)
[2017-09-26 06:52] LABS: HEMATOCRIT 26.7 % (37-47); HEMOGLOBIN 8.4 g/dL (12.0-16.0); MEAN CELL VOLUME 95.4 fL (80-100); MEAN CORPUSCULAR HGB CONC 31.5 g/dl (32-36); PLATELET COUNT 107 K/uL (130-400); RED CELL DISTRIBUTION WIDTH CV 18.8 % (11.5-14.5); RED CELL DISTRIBUTION WIDTH SD 65.3 fL (36.4-46.3); WHITE BLOOD COUNT 7.58 K/uL (4.8-10.8)
[2017-09-26 07:22] LABS: CALCIUM 8.8 mg/dl (8.5-10.1); CREATININE 1.37 mg/dl (0.60-1.20); POTASSIUM 4.7 mmol/L (3.5-5.1)
[2017-09-26 07:23] VITALS: BP 130/60; PULSE 60; TEMP 36.4; O2SAT 93
[2017-09-26] MEDS: FERROUS SULFATE 325 MG TAB PO SCH ×2 (07:56→21:09)
[2017-09-26] MEDS: CIPROFLOXACIN 500 MG TAB PO SCH ×2 (07:56→21:09)
[2017-09-26] MEDS: METOPROLOL TARTRATE 25 MG TAB PO SCH ×2 (07:57→21:16)
[2017-09-26] MEDS: ACETAMINOPHEN 500 MG TAB PO SCH ×3 (07:58→21:12)
[2017-09-26] MEDS: PANTOprazole SOD 40 MG TAB PO SCH ×2 (07:58→21:10)
[2017-09-26] MEDS: CHOLECALCIFEROL 1000 INTER.UNIT TAB PO SCH (07:59)
[2017-09-26] MEDS: POLYETHYLENE (MIRALAX) 17 GM PACK PO SCH (08:10)
--- NOTE | 2017-09-26 09:13 | DIAGNOSTIC IMAGING REPORT ---
KUB CLINICAL HISTORY: Abdominal distention. FINDINGS: 2 AP supine abdominal radiograph are correlated with abdominal CT dated 01/10/2014. There is a nonobstructed abdominal bowel gas pattern. Moderate to severe constipation is identified. No evidence of intraperitoneal free air is seen on these supine views. A calcified splenic artery aneurysm and numerous splenic granulomas are seen in the left upper quadrant. Atherosclerotic calcification is present in the abdominal aorta. The skeletal structures are osteopenic. Lumbosacral spondylosis is identified. IMPRESSION: Moderate to severe constipation. Electronically signed by: Arturo Ba M.D. 09/26/2017 9:12 AM Dictated Date/Time: 09/26/2017 9:11 AM
[2017-09-26] MEDS: ATORVASTATIN 40 MG TAB PO SCH (09:29)
[2017-09-26] MEDS: MULTIVITAMIN TAB PO SCH (09:29)
[2017-09-26] MEDS: INSULIN ASPART 100 UNITS/ML 3 ML PEN SC SCH ×4 (09:29→21:23)
[2017-09-26] MEDS: AMLODIPINE BESYLATE 5 MG TAB PO SCH (09:30)
[2017-09-26] MEDS: CYANOCOBALAMIN 500 MCG TAB (VIT B-12) PO SCH (09:31)
--- NOTE | 2017-09-26 09:33 | DIAGNOSTIC IMAGING REPORT ---
CT SCAN OF THE CHEST WITHOUT IV CONTRAST CLINICAL HISTORY: Right-sided hemothorax. COMPARISON STUDY: Chest x-ray dated 09/23/2017. Chest CT 08/22/2017 and dated 01/10/2014. TECHNIQUE: CT scan of the thorax was performed from the thoracic inlet to the upper abdomen. Images are reviewed in the axial, sagittal, and coronal planes. IV contrast was not administered for this examination. A dose lowering technique was utilized adhering to the principles of ALARA. CT DOSE: 226.62 mGy.cm FINDINGS: Thyroid: Imaged portions of the thyroid gland are normal in size and attenuation. Thoracic aorta: There is evidence of graft repair of the aortic root and ascending thoracic aorta. There is no evidence of intramural hematoma or hyperdense/acute blood. The patient's dissection is not well evaluated without IV contrast. A presumed dissection flap is seen extending from the ascending thoracic aorta into the upper abdomen. The thoracic aorta is normal in caliber and the arch demonstrates standard 3-vessel anatomy. Heart: The patient is status post midline sternotomy. A 2-lead cardiac pacemaker is present in the left chest wall. The heart is enlarged and there is trace pericardial effusion. The coronary arteries are densely calcified. Postoperative changes suggested at the aortic valve. The pulmonary trunk is dilated, measuring up to 3.5 cm in diameter. This suggests pulmonary artery hypertension. Lungs and pleural spaces: There are moderate pleural effusions with associated atelectasis. These are simple in appearance. By apical scarring is observed. Diffuse subpleural reticulation suggests interstitial lung disease. No airspace consolidation is identified typical for pneumonia. There is no pneumothorax. The trachea and central airways are clear. Mediastinum: There is no mediastinal hematoma. Prominent mediastinal lymph nodes measure up to 12 mm short axis. There are calcified mediastinal nodes. Juliette: Not well assessed without IV contrast. Axillae: There is no axillary lymphadenopathy. Surgical clips are seen in the right axilla. Upper abdomen: There are numerous calcified splenic granulomas. A moderate hiatal hernia is observed. Calcified granulomas are also seen in the liver. A calcified splenic artery aneurysm measures up to 11 mm in diameter. Skeletal structures: The skeletal structures are osteopenic. Degenerative change and kyphoscoliosis are noted in the thoracic spine. Arthritic change is observed in the shoulders. No lytic or blastic bony lesions are seen. Soft tissues: The patient is cachectic. IMPRESSION: 1. Postoperative change in identified involving the aortic root and the ascending thoracic aorta. No intramural hematoma or hyperdense blood is identified. 2. A type A aortic dissection is again seen. This extends into the upper abdominal aorta. The dissection is not well evaluated without IV contrast. 3. There are moderate simple appearing bilateral pleural effusions with associated atelectasis. 4. There is no airspace consolidation typical for pneumonia. 5. Cardiomegaly and cardiac pacemaker. 6. Hiatal hernia. 7. Additional findings as above. Electronically signed by: Arturo Ba M.D. 09/26/2017 9:31 AM Dictated Date/Time: 09/26/2017 9:23 AM
--- NOTE | 2017-09-26 10:14 | PULMONARY PROGRESS NOTE ---
DATE: 09/26/2017 DATE: 09/26/2017 SUBJECTIVE: The patient once again remains asymptomatic. She denies pleuritic pain, cough, shortness of breath, although she has done very little walking, but at rest she is not short of breath. She is afebrile. I obtained a CT scan of the chest without contrast this morning and clearly there is in my opinion significant residual of fluid that is probably a bloody effusion that remains given the thoracentesis from several days ago. We sent out that fluid for a pleural fluid hematocrit but regardless, I suspect this is residual of patient's previous chest surgery and repair of the type A dissection. The patient's H&H on 09/18/2017 was 7.7 and 24.4 and is currently 8.4 and 26.7. She remains hemodynamically stable. We will send off iron kinetics to see if patient would respond to iron therapy and once again reassess for any worsening bleeding or worsening effusion. She is 86 years old, but may very well respond to an additional drainage procedure, possibly even at decortication. Another thought would be insertion of a PleurX catheter with the use of Dornase and/or TPA instillation. Will discuss further with Dr. Joseph.
[2017-09-26] MEDS: SENNA 8.6 MG TAB PO SCH (11:18)
[2017-09-26 15:41] VITALS: BP 115/65; PULSE 60; TEMP 36.7; O2SAT 98
[2017-09-26] MEDS: DIGOXIN 0.125 MG TAB PO SCH (16:26)
[2017-09-26 19:11] LABS: HEMATOCRIT 24.2 % (37-47); HEMOGLOBIN 7.6 g/dL (12.0-16.0); MEAN CELL VOLUME 95.3 fL (80-100); MEAN CORPUSCULAR HEMOGLOBIN 29.9 pg (25-34); MEAN CORPUSCULAR HGB CONC 31.4 g/dl (32-36); MEAN PLATELET VOLUME 8.9 fL (7.4-10.4); PLATELET COUNT 100 K/uL (130-400); RED CELL DISTRIBUTION WIDTH CV 18.6 % (11.5-14.5); RED CELL DISTRIBUTION WIDTH SD 64.2 fL (36.4-46.3); WHITE BLOOD COUNT 7.46 K/uL (4.8-10.8)
[2017-09-26 20:09] VITALS: BP 119/57; PULSE 59; TEMP 37; O2SAT 95
[2017-09-26 21:15] VITALS: BP 117/62; PULSE 62; O2SAT 94
[2017-09-26 21:44] LABS: HEMATOCRIT 24.6 % (37-47); HEMOGLOBIN 7.7 g/dL (12.0-16.0)
[2017-09-27 04:23] VITALS: BP 145/69; PULSE 67; TEMP 36.3; O2SAT 93
[2017-09-27] MEDS: LEVOTHYROXINE 75 MCG TAB PO SCH (05:17)
[2017-09-27] MEDS: FERROUS SULFATE 325 MG TAB PO SCH ×2 (07:38→20:58)
[2017-09-27] MEDS: ATORVASTATIN 40 MG TAB PO SCH (07:39)
[2017-09-27] MEDS: METOPROLOL TARTRATE 25 MG TAB PO SCH ×2 (07:39→20:58)
[2017-09-27] MEDS: MULTIVITAMIN TAB PO SCH (07:39)
[2017-09-27] MEDS: AMLODIPINE BESYLATE 5 MG TAB PO SCH (07:40)
[2017-09-27] MEDS: PANTOprazole SOD 40 MG TAB PO SCH (07:40)
[2017-09-27] MEDS: SENNA 8.6 MG TAB PO SCH (07:41)
[2017-09-27] MEDS: ACETAMINOPHEN 500 MG TAB PO SCH ×2 (07:42→14:00)
[2017-09-27] MEDS: CYANOCOBALAMIN 500 MCG TAB (VIT B-12) PO SCH (07:42)
[2017-09-27] MEDS: CHOLECALCIFEROL 1000 INTER.UNIT TAB PO SCH (07:43)
[2017-09-27 08:00] VITALS: BP 116/52; PULSE 65; TEMP 36.8; O2SAT 95
[2017-09-27] MEDS: POLYETHYLENE (MIRALAX) 17 GM PACK PO SCH (08:22)
--- NOTE | 2017-09-27 08:32 | Progress Note ---
Subjective Date of Service: Sep 26, 2017. Subjective Pt evaluation today including: conversation w/ patient, conversation w/ family (son, daughter in law at bedside), physical exam, chart review, lab review Pain: none voiced PO Intake: improving Voiding: no voiding problems no issues overnight per staff family state "she has her sense of humor back" which suggests her mental status has approached baseline Problem List Medical Problems: (1) Anemia Status: Acute (2) Anemia Status: Acute (3) Atrial fibrillation with RVR Status: Acute (4) CVA (cerebral vascular accident) Status: Acute (5) Generalized weakness Status: Acute (6) Hypoxia Status: Acute (7) Left-sided weakness Status: Acute (8) Low back pain Status: Acute (9) Near syncope Status: Acute (10) Paroxysmal a-fib Status: Acute (11) Pleural effusion on left Status: Acute (12) Pleural effusion on right Status: Acute (13) Rapid atrial fibrillation Status: Acute Review of Systems Constitutional: No fever Respiratory: No cough Cardiac: No chest pain Abdomen: + constipation, No pain Objective Vital Signs Date Time Temp Pulse Resp B/P (MAP) Pulse Ox O2 Delivery O2 Flow Rate FiO2 09/26/17 20:09 37.0 59 20 119/57 (77) 95 Room Air 09/26/17 16:26 60 09/26/17 16:00 Room Air 09/26/17 15:41 36.7 60 18 115/65 (82) 98 Room Air 09/26/17 08:00 Room Air 09/26/17 07:23 36.4 60 20 130/60 (83) 93 Room Air 09/26/17 00:10 Room Air 09/25/17 23:23 37.1 61 17 124/58 (80) 90 Room Air Physical Exam General Appearance: no apparent distress ENT: pharynx normal Neck: no JVD Respiratory/Chest: no respiratory distress, no accessory muscle use, + decreased breath sounds (bases) Cardiovascular: regular rate, rhythm, no gallop, + systolic murmur (2/6 RUSB/ LLSB) Abdomen: normal bowel sounds, soft, no organomegaly, + distended (mild) Extremities: no pedal edema Neurologic/Psychiatric: alert, + depressed affect Skin: + pallor Laboratory Results Last 24 Hours Test 09/26/17 06:32 09/26/17 07:58 09/26/17 12:06 09/26/17 16:48 White Blood Count 7.58 K/uL Red Blood Count 2.80 M/uL Hemoglobin 8.4 g/dL Hematocrit 26.7 % Mean Corpuscular Volume 95.4 fL Mean Corpuscular Hemoglobin 30.0 pg Mean Corpuscular Hemoglobin Concent 31.5 g/dl RDW Standard Deviation 65.3 fL RDW Coefficient of Variation 18.8 % Platelet Count 107 K/uL Mean Platelet Volume 9.0 fL Sodium Level 134 mmol/L Potassium Level 4.7 mmol/L Chloride Level 100 mmol/L Carbon Dioxide Level 27 mmol/L Anion Gap 7.0 mmol/L Blood Urea Nitrogen 27 mg/dl Creatinine 1.37 mg/dl Est Creatinine Clear Calc Drug Dose 26.6 ml/min Estimated GFR () 39.8 Estimated GFR (Non- 34.4 BUN/Creatinine Ratio 19.6 Random Glucose 122 mg/dl Calcium Level 8.8 mg/dl Bedside Glucose 133 mg/dl 148 mg/dl 121 mg/dl Test 09/26/17 19:05 09/26/17 20:36 09/26/17 21:30 White Blood Count 7.46 K/uL Red Blood Count 2.54 M/uL Hemoglobin 7.6 g/dL 7.7 g/dL Hematocrit 24.2 % 24.6 % Mean Corpuscular Volume 95.3 fL Mean Corpuscular Hemoglobin 29.9 pg Mean Corpuscular Hemoglobin Concent 31.4 g/dl RDW Standard Deviation 64.2 fL RDW Coefficient of Variation 18.6 % Platelet Count 100 K/uL Mean Platelet Volume 8.9 fL Bedside Glucose 236 mg/dl Assessment and Plan 86yo female with history of HTN, hypothyroidism, a. fib, SSS s/p pacemaker placement, and recent type A aortic dissection s/p repair at [facility] on 08/22/17 who presented with extreme fatigue beginning on the AM of admission and REY since her surgery. 1. extreme fatigue - likely was combination of remeron and UTI at time of admission. Remeron has been d/c, and UTI has been Rx. Anemia may have played a very small role as well. TSH, dig level, etc - all normal. 2. acute/chronic anemia - s/p 1 unit of PRBCs this admission with stable Hb in the 8-9 range with no overt GI bleeding or other cause of blood loss. Bloody pleural fluid was likely fluid from her open heart surgery. CBC in am. 3. e.coli and pseudomonas UTI - cont cipro BID; day #6/. 4. acute/chronic diastolic CHF - acute component clinically resolved. Holding lasix, cont BB. 5. pacemaker status - noted, stable. 6. a. fib - continue BB, digoxin. Xarelto on hold due to recent thoracentesis. Resume when ok with pulmonary and no further procedures planned. 7. hypothyroidism - cont synthroid; TSH compensated. 8. recent insomnia - remeron stopped. 9. hyperlipidemia - cont statin. 10. CKD stage 4 - creatinine is stable. BMP in am for stability. 11. DVT proph - resume xarelto when ok with pulmonary. 12. HTN - controlled. 13. ?mild cognitive impairment with mild superimposed encephalopathy? - sounds as if she has approached baseline. Suspect she indeed had encephalopathy earlier this stay. 14. insomnia with depression - stopped remeron due to concern of excess sedation. Consider zoloft or lexapro in patricia. 15. recent type A aortic dissection repair - in light of age made incredible recovery. PT, OT to help w/ her deconditioning. 16. T2DM - hold metformin. BSG's ac/hs. Novolog correction/carb coverage for now. Goal range 120-180. Overall control acceptable. 17. constipation - cont aggressive bowel regimen. 18. hyponatremia - due to diuretics; repeat BMP in am for stability. 19. b/l pleural effusions - s/p thoracentesis on right - fluid grossly bloody, exudative by lite's criteria. Suspect this was 2nd to her recent open heart surgery. Defer management to pulmonary. She remains stable in RA. dispo - SNF family updated Continued [facility] stay due to: ambulation difficulties Discharge planning: senior living facility
[2017-09-27 08:48] LABS: HEMATOCRIT 26.3 % (37-47); HEMOGLOBIN 8.4 g/dL (12.0-16.0); MEAN CELL VOLUME 95.3 fL (80-100); MEAN CORPUSCULAR HEMOGLOBIN 30.4 pg (25-34); MEAN CORPUSCULAR HGB CONC 31.9 g/dl (32-36); RED CELL DISTRIBUTION WIDTH CV 18.7 % (11.5-14.5); RED CELL DISTRIBUTION WIDTH SD 64.3 fL (36.4-46.3); WHITE BLOOD COUNT 7.68 K/uL (4.8-10.8)
[2017-09-27] MEDS: INSULIN ASPART 100 UNITS/ML 3 ML PEN SC SCH ×4 (08:52→21:02)
[2017-09-27 09:14] LABS: CALCIUM 9.1 mg/dl (8.5-10.1); CREATININE 1.24 mg/dl (0.60-1.20); POTASSIUM 4.9 mmol/L (3.5-5.1)
[2017-09-27 09:36] LABS: MEAN PLATELET VOLUME 8.8 fL (7.4-10.4); PLATELET COUNT 99 K/uL (130-400)
[2017-09-27 11:15] VITALS: BP 118/72; PULSE 60; TEMP 37.1; O2SAT 95
--- NOTE | 2017-09-27 12:56 | PULMONARY PROGRESS NOTE ---
DATE: 09/27/2017 SUBJECTIVE: Review of the CT scan of the chest performed on 09/26/2017 at my request shows postoperative changes involving the aortic root and the ascending thoracic aorta. Contrast was not given, given patient's elevated creatinine. There are bilateral pleural effusions, right greater than left with some associated atelectasis. The fluid does not appear to be echogenic and patient's H&H is stable at 8.4 and 26.3. There is no sign of active bleeding and I would continue to try to mobilize patient. I suspect the fluid that was retrieved from thoracentesis was a result of patient's surgical intervention, but in the absence of active bleeding and overt signs of failure, I would continue to mobilize patient. Once again the pleural fluid by CAT scan does not look echogenic. A repeat ultrasound may be helpful to assess the quality of that fluid and whether or not additional drainage is needed. Certainly, patient is not symptomatic from the effusion and it is certainly possible that the bilateral nature would suggest an element of fluid overload. I agree with instituting iron therapy and hopefully with an improved H&H, patient will continue to improve. She may do well with a daily diuretic and daily weights. We will help to assess her fluid status.
[2017-09-27 15:46] VITALS: BP 155/55; PULSE 67; TEMP 36.5; O2SAT 98
[2017-09-27] MEDS: DIGOXIN 0.125 MG TAB PO SCH (17:03)
[2017-09-27] MEDS ORDERED: BISACODYL 10 MG SUPP PR STA (18:22)
[2017-09-27] MEDS ORDERED: MILK AND MOLASSES ENEMA PR PRN (18:30)
[2017-09-27] MEDS ORDERED: FUROSEMIDE 20 MG TAB PO ONE (18:30)
[2017-09-27 19:39] VITALS: BP 129/57; PULSE 60; TEMP 36.8; O2SAT 94
[2017-09-27] MEDS ORDERED: ACETAMINOPHEN 500 MG TAB PO PRN (20:00)
--- NOTE | 2017-09-27 21:42 | Progress Note ---
Subjective Date of Service: Sep 27, 2017. Subjective Pt evaluation today including: conversation w/ patient, physical exam, chart review, lab review, review of inpatient medication list Pain: denies chest pain, abd pain PO Intake: fair, 25% of meals documented pt lying comfortably in bed asking "when is my coming to see me?" (her is ) she knows, however, that she is in the hospital Problem List Medical Problems: (1) Anemia Status: Acute (2) Anemia Status: Acute (3) Atrial fibrillation with RVR Status: Acute (4) CVA (cerebral vascular accident) Status: Acute (5) Generalized weakness Status: Acute (6) Hypoxia Status: Acute (7) Left-sided weakness Status: Acute (8) Low back pain Status: Acute (9) Near syncope Status: Acute (10) Paroxysmal a-fib Status: Acute (11) Pleural effusion on left Status: Acute (12) Pleural effusion on right Status: Acute (13) Rapid atrial fibrillation Status: Acute Review of Systems Constitutional: No fever Respiratory: No cough, No sputum, No shortness of breath Cardiac: No chest pain, No orthopnea Abdomen: No pain Objective Vital Signs Date Time Temp Pulse Resp B/P (MAP) Pulse Ox O2 Delivery O2 Flow Rate FiO2 09/27/17 19:39 36.8 60 20 129/57 (81) 94 Room Air 09/27/17 17:03 65 09/27/17 16:00 Room Air 09/27/17 15:46 36.5 67 18 155/55 (88) 98 Room Air 09/27/17 11:15 37.1 60 16 118/72 (87) 95 Room Air 09/27/17 08:00 Room Air 09/27/17 08:00 36.8 65 16 116/52 (73) 95 Room Air 09/27/17 04:23 36.3 67 18 145/69 (94) 93 Room Air 09/27/17 00:00 Room Air Physical Exam General Appearance: no apparent distress ENT: pharynx normal Neck: + pertinent finding (IJ is prominent today) Respiratory/Chest: no respiratory distress, no accessory muscle use, + decreased breath sounds (both bases, little worse on right today; minimal crackle bases) Cardiovascular: regular rate, rhythm, no gallop, + systolic murmur (2/6 holosystolic murmur RUSB) Abdomen: normal bowel sounds, non tender, soft, no organomegaly Extremities: no pedal edema Neurologic/Psychiatric: alert Skin: + pallor, + pertinent finding (sternal scar clean) Laboratory Results Last 24 Hours Test 09/27/17 07:50 09/27/17 08:35 09/27/17 11:47 09/27/17 16:58 Bedside Glucose 165 mg/dl 162 mg/dl 136 mg/dl White Blood Count 7.68 K/uL Red Blood Count 2.76 M/uL Hemoglobin 8.4 g/dL Hematocrit 26.3 % Mean Corpuscular Volume 95.3 fL Mean Corpuscular Hemoglobin 30.4 pg Mean Corpuscular Hemoglobin Concent 31.9 g/dl RDW Standard Deviation 64.3 fL RDW Coefficient of Variation 18.7 % Platelet Count 99 K/uL Mean Platelet Volume 8.8 fL Platelet Estimate DECREASED Sodium Level 133 mmol/L Potassium Level 4.9 mmol/L Chloride Level 101 mmol/L Carbon Dioxide Level 23 mmol/L Anion Gap 9.0 mmol/L Blood Urea Nitrogen 26 mg/dl Creatinine 1.24 mg/dl Est Creatinine Clear Calc Drug Dose 29.3 ml/min Estimated GFR () 44.9 Estimated GFR (Non- 38.8 BUN/Creatinine Ratio 21.0 Random Glucose 176 mg/dl Calcium Level 9.1 mg/dl Magnesium Level 2.5 mg/dl Test 09/27/17 20:07 Bedside Glucose 184 mg/dl Assessment and Plan 86yo female with history of HTN, hypothyroidism, a. fib, SSS s/p pacemaker placement, and recent type A aortic dissection s/p repair at [facility] on 08/22/17 who presented with extreme fatigue beginning on the AM of admission and REY since her surgery. 1. extreme fatigue - likely was combination of remeron and UTI at time of admission. Remeron has been d/c, and UTI has been Rx. Anemia may have played a very small role as well. TSH, dig level, etc - all normal. 2. acute/chronic anemia - s/p 1 unit of PRBCs this admission with stable Hb in the 8-9 range with no overt GI bleeding or other obvious blood loss in other locations. Iron studies -- transferrin sat <20% - replacing with ferrous sulfate 325 BID; b12/folate acceptable. Bloody pleural fluid was likely fluid from her open heart surgery. CBC in am for stability. 3. e.coli and pseudomonas UTI - completed 7 days of cipro; stop abx today. 4. acute/chronic diastolic CHF - acute component clinically resolved. Resume lasix 20mg daily. Cont BB. 5. pacemaker status - noted, stable. 6. a. fib - continue BB, digoxin. Xarelto on hold due to recent thoracentesis. Resume when ok with pulmonary and no further procedures planned. 7. hypothyroidism - cont synthroid; TSH compensated. 8. recent insomnia - remeron stopped. 9. hyperlipidemia - cont statin. 10. CKD stage 4 - creatinine is stable. 11. DVT proph - resume xarelto when ok with pulmonary. 12. HTN - controlled. 13. encephalopathy, likely hospital psychosis vs metabolic (from recent UTI) - waxes/wanes, overall improved but still w/ residual symptoms. Unclear if she has baseline mild cognitive impairment but I am suspicious for such. 14. insomnia with depression - stopped remeron due to concern of excess sedation. Consider zoloft or lexapro in patricia. 15. recent type A aortic dissection repair - in light of age made incredible recovery. PT, OT to help w/ her deconditioning. 16. T2DM - hold metformin. BSG's ac/hs. Novolog correction/carb coverage for now. Goal range 120-180. Overall control acceptable. 17. constipation - cont aggressive bowel regimen. 18. hyponatremia - mild - ongoing; resume lasix 20mg daily. 19. b/l pleural effusions - s/p thoracentesis on right - fluid grossly bloody, exudative by lite's criteria. Suspect this was 2nd to her recent open heart surgery. Defer management to pulmonary. She remains stable in RA. dispo - SNF family updated Continued [facility] stay due to: ambulation difficulties Discharge planning: detention facility
[2017-09-28] VITALS (7 sets, daily range): BP systolic 112–139; BP diastolic 64–73; PULSE 60–97; TEMP 36.4–36.7; O2SAT 91–99
[2017-09-28] MEDS: HALOPERIDOL 0.5 MG TAB PO PRN (04:40)
[2017-09-28] MEDS: LEVOTHYROXINE 75 MCG TAB PO SCH (06:22)
[2017-09-28] MEDS: INSULIN ASPART 100 UNITS/ML 3 ML PEN SC SCH ×4 (06:30→20:43)
[2017-09-28] MEDS: AMLODIPINE BESYLATE 5 MG TAB PO SCH (08:13)
[2017-09-28] MEDS: CHOLECALCIFEROL 1000 INTER.UNIT TAB PO SCH (08:13)
[2017-09-28] MEDS: ATORVASTATIN 40 MG TAB PO SCH (08:13)
[2017-09-28] MEDS: CYANOCOBALAMIN 500 MCG TAB (VIT B-12) PO SCH (08:13)
[2017-09-28] MEDS: POLYETHYLENE (MIRALAX) 17 GM PACK PO SCH (08:14)
[2017-09-28] MEDS: MULTIVITAMIN TAB PO SCH (08:14)
[2017-09-28] MEDS: METOPROLOL TARTRATE 25 MG TAB PO SCH ×2 (08:14→20:45)
[2017-09-28] MEDS: FERROUS SULFATE 325 MG TAB PO SCH ×2 (08:15→20:45)
[2017-09-28] MEDS: SENNA 8.6 MG TAB PO SCH (08:15)
[2017-09-28 09:48] LABS: HEMATOCRIT 23.4 % (37-47); HEMOGLOBIN 7.4 g/dL (12.0-16.0); MEAN CELL VOLUME 95.1 fL (80-100); MEAN CORPUSCULAR HEMOGLOBIN 30.1 pg (25-34); MEAN CORPUSCULAR HGB CONC 31.6 g/dl (32-36); RED CELL DISTRIBUTION WIDTH CV 18.8 % (11.5-14.5); WHITE BLOOD COUNT 7.37 K/uL (4.8-10.8)
[2017-09-28 09:58] LABS: MEAN PLATELET VOLUME 8.5 fL (7.4-10.4); PLATELET COUNT 86 K/uL (130-400)
[2017-09-28 10:13] LABS: CALCIUM 8.6 mg/dl (8.5-10.1); CREATININE 1.19 mg/dl (0.60-1.20); POTASSIUM 4.6 mmol/L (3.5-5.1)
[2017-09-28] MEDS ORDERED: FUROSEMIDE 20 MG TAB PO ONE (14:29)
[2017-09-28] MEDS: DIGOXIN 0.125 MG TAB PO SCH (16:11)
--- NOTE | 2017-09-28 16:16 | Pulmonology Progress Note ---
Pulmonary Progress Note Date of Service Sep 28, 2017. Attending Dr. Rousseau Subjective This is an 86-year-old female that was admitted and found to have bilateral pleural effusions. Thoracentesis was performed by Dr. Mckay which reveals serous sanguinous fluid. Pathology of the pleural fluid showed no malignancy. CT scan performed yesterday shows a fluid may be reaccumulating. Patient seen at bedside and has no respiratory distress and denies any shortness of breath. She has no use of accessory muscles. She exhibits signs of dementia. She has no acute complaints. Objective Vital Signs - as noted below Laboratory Data - as noted below Physical Exam: General - NAD. Short-term memory loss. Unable to recall simple commands or subjects. Disoriented Eyes - No icterus, gaze conjugate ENT - Mucosa moist, no lesions or candidiasis Neck - Supple, No JVD Lungs - diminished breath sounds bilaterally. Rales in the bilateral bases. Heart - Regular, rate controlled Abdomen - Soft, NT, ND, BS present Extremities - No edema, pedal pulses intact Neuro - awake and alert but disoriented. Assessment & Plan 78-year-old female admitted with CHF exacerbation bilateral pleural effusions: BILATERAL PLEURAL EFFUSIONS * Status post right thoracentesis with Dr. Mckay * Sero-sanguinous fluid sent to lab. Pathology revealed no mesothelial cells or malignant cells * Patient was on Xarelto which is currently being held * Will discuss further plan with Dr. Mckay regarding further intervention ATRIAL FIBRILLATION * Chronic anticoagulation at home * Xarelto has been held. * Will discuss further intervention with Dr. Mckay and then advise on restarting Xarelto DVT PROPHYLAXIS * TEDs/SCDs Thank you for including us in the care of this patient. Data Medications: Current Inpatient Medications Medications (Trade) Dose Ordered Sig/Marija Route Start Time Stop Time Status Last Admin Dose Admin Polyethylene (Miralax Powder Packet) 17 gm DAILY PRN PO 09/18/17 08:45 10/18/17 08:44 Amlodipine Besylate (Norvasc Tab) 10 mg DAILY PO 09/18/17 09:00 10/18/17 08:59 09/28/17 08:13 10 MG Atorvastatin Calcium (Lipitor Tab) 40 mg DAILY PO 09/18/17 09:00 10/18/17 08:59 09/28/17 08:13 40 MG Cholecalciferol (Vitamin D Tab) 1,000 inter.unit DAILY PO 09/18/17 09:00 10/18/17 08:59 09/28/17 08:13 1,000 INTER.UNIT Digoxin (Lanoxin Tab) 0.125 mg DAILY@1600 PO 09/18/17 16:00 10/18/17 15:59 09/27/17 17:03 0.125 MG Levothyroxine Sodium (Synthroid Tab) 75 mcg DAILYBB PO 09/19/17 06:00 10/19/17 06:59 09/28/17 06:22 75 MCG Metoprolol Tartrate (Lopressor Tab) 25 mg BID PO 09/18/17 09:00 10/18/17 08:59 09/28/17 08:14 25 MG Multivitamins (Multivitamin Tab) 1 tab DAILY PO 09/18/17 09:00 10/18/17 08:59 09/28/17 08:14 1 TAB Rivaroxaban (Xarelto Tab) 15 mg QDD PO 09/18/17 16:45 10/18/17 16:44 Future Hold 09/21/17 17:48 15 MG Cyanocobalamin (Vitamin B-12 Tab) 1,000 mcg QAM PO 09/18/17 09:00 10/18/17 08:59 09/28/17 08:13 1,000 MCG Insulin Aspart (novoLOG ASPART) SLIDING SCALE G... ACHS SC 09/18/17 16:15 10/18/17 16:14 09/28/17 06:30 2 UNITS Haloperidol (Haldol Tab) 0.5 mg Q6H PRN PO 09/18/17 19:15 10/18/17 19:14 09/28/17 04:40 0.5 MG Ferrous Sulfate (Feosol Tab) 325 mg BID PO 09/20/17 09:00 10/20/17 08:59 09/28/17 08:15 325 MG Morphine Sulfate (MoRPHine SULFATE INJ) 2 mg Q8H PRN IV 09/24/17 11:30 10/08/17 11:29 Polyethylene (Miralax Powder Packet) 17 gm DAILY PO 09/26/17 08:00 10/26/17 07:59 09/28/17 08:14 17 GM Senna (Senokot Tab) 17.2 mg QAM PO 09/26/17 10:45 10/26/17 10:44 09/28/17 08:15 17.2 MG Acetaminophen (Tylenol Tab) 1,000 mg TID PRN PO 09/27/17 20:00 10/18/17 08:44 Miscellaneous Medication (Milk And Molasses Enema) 1 ea DAILY PRN ME 09/27/17 18:30 10/27/17 18:29 Furosemide (Lasix Tab) 20 mg QAM PO 09/29/17 08:00 10/29/17 07:59 I & O: 24-Hour Column 09/29/17 08:00 Intake Total 160 ml Output Total 100 ml Balance 60 ml Vital Signs: Date Time Temp Pulse Resp B/P (MAP) Pulse Ox O2 Delivery O2 Flow Rate FiO2 09/28/17 11:54 36.4 65 18 126/68 (87) 95 Room Air 09/28/17 08:00 91 Room Air 09/28/17 07:34 36.6 74 18 125/64 (84) 91 Room Air 09/28/17 04:49 36.7 83 20 139/73 (95) 93 Room Air 09/28/17 00:00 Room Air 09/27/17 20:00 Room Air 09/27/17 19:39 36.8 60 20 129/57 (81) 94 Room Air 09/27/17 17:03 65 Laboratory Results: Last 24 Hours Test 09/27/17 16:58 09/27/17 20:07 09/28/17 07:49 09/28/17 09:39 Bedside Glucose 136 mg/dl 184 mg/dl 125 mg/dl White Blood Count 7.37 K/uL Red Blood Count 2.46 M/uL Hemoglobin 7.4 g/dL Hematocrit 23.4 % Mean Corpuscular Volume 95.1 fL Mean Corpuscular Hemoglobin 30.1 pg Mean Corpuscular Hemoglobin Concent 31.6 g/dl RDW Standard Deviation 65.0 fL RDW Coefficient of Variation 18.8 % Platelet Count 86 K/uL Mean Platelet Volume 8.5 fL Sodium Level 136 mmol/L Potassium Level 4.6 mmol/L Chloride Level 101 mmol/L Carbon Dioxide Level 26 mmol/L Anion Gap 9.0 mmol/L Blood Urea Nitrogen 26 mg/dl Creatinine 1.19 mg/dl Est Creatinine Clear Calc Drug Dose 30.6 ml/min Estimated GFR () 47.2 Estimated GFR (Non- 40.7 BUN/Creatinine Ratio 21.8 Random Glucose 195 mg/dl Calcium Level 8.6 mg/dl Test 09/28/17 12:11 09/28/17 16:00 Bedside Glucose 117 mg/dl
--- NOTE | 2017-09-28 16:34 | Hospitalist Progress Note ---
Hospitalist Progress Note Date of Service Sep 28, 2017. (Mckenzie Delgado ., NIELS-C) Subjective Pt evaluation today including: conversation w/ patient, physical exam, chart review, lab review, review of inpatient medication list Pain: None PO Intake: Tolerating PO diet Voiding: no voiding problems Patient poor historian, confused. Denies any complaints currently. Keeps repeating "I don't think I'm doing what I should" but cannot clarify what she means. Denies chest pain or shortness of breath. The patient denies fevers, chills, sweats, chest pain, palpitations, claudication, cough, wheezing, shortness of breath, nausea, vomiting, abdominal pain, dysuria, hematuria, urinary retention, paralysis, weakness, numbness and tingling. Additional Comments: See HPI for pertinent positives and negatives. All other systems reviewed and negative. (Mckenzie Delgado, NIELS-C) Objective Vital Signs Date Time Temp Pulse Resp B/P (MAP) Pulse Ox O2 Delivery O2 Flow Rate FiO2 09/28/17 16:11 36.6 60 18 112/65 (81) 99 Room Air 09/28/17 16:11 64 09/28/17 11:54 36.4 65 18 126/68 (87) 95 Room Air 09/28/17 08:00 91 Room Air 09/28/17 07:34 36.6 74 18 125/64 (84) 91 Room Air 09/28/17 04:49 36.7 83 20 139/73 (95) 93 Room Air 09/28/17 00:00 Room Air 09/27/17 20:00 Room Air 09/27/17 19:39 36.8 60 20 129/57 (81) 94 Room Air 09/27/17 17:03 65 (Mckenzie Delgado ., NIELS-C) Physical Exam Notes: General appearance: Well-developed, well-nourished, no apparent distress Head: Normocephalic, atraumatic Eyes: Normal inspection, PERRL, EOMI ENT: Normal ENT inspection, hearing grossly normal, pharynx normal Neck: Supple, no JVD, trachea midline Respiratory/Chest: +Decreased breath sounds especially in bases bilaterally. Lungs clear to auscultation, no respiratory distress Cardiovascular: +Systolic murmur. Regular rate & rhythm, no gallop Abdomen/GI: Normal bowel sounds, non-tender, soft Extremities/Musculoskeletal: Normal inspection, no calf tenderness, no pedal edema Neurological/Psych: +Disoriented to time, confused. Alert, normal mood/affect , oriented x 2 Skin: +Sternal scar. Normal color, warm/dry, no rash (Mckenzie Delgado ., PA-C) Laboratory Results Last 24 Hours Test 09/27/17 16:58 09/27/17 20:07 09/28/17 07:49 09/28/17 09:39 Bedside Glucose 136 mg/dl 184 mg/dl 125 mg/dl White Blood Count 7.37 K/uL Red Blood Count 2.46 M/uL Hemoglobin 7.4 g/dL Hematocrit 23.4 % Mean Corpuscular Volume 95.1 fL Mean Corpuscular Hemoglobin 30.1 pg Mean Corpuscular Hemoglobin Concent 31.6 g/dl RDW Standard Deviation 65.0 fL RDW Coefficient of Variation 18.8 % Platelet Count 86 K/uL Mean Platelet Volume 8.5 fL Sodium Level 136 mmol/L Potassium Level 4.6 mmol/L Chloride Level 101 mmol/L Carbon Dioxide Level 26 mmol/L Anion Gap 9.0 mmol/L Blood Urea Nitrogen 26 mg/dl Creatinine 1.19 mg/dl Est Creatinine Clear Calc Drug Dose 30.6 ml/min Estimated GFR () 47.2 Estimated GFR (Non- 40.7 BUN/Creatinine Ratio 21.8 Random Glucose 195 mg/dl Calcium Level 8.6 mg/dl Test 09/28/17 12:11 09/28/17 16:07 Bedside Glucose 117 mg/dl (Mckenzie Delgado ., PA-C) Assessment and Plan 86 y/o female with a history of HTN, a-fib, sick sinus s/p pacemaker, hypothyroidism, DM II, CKD stage III, and recent type A aortic dissection s/p repair at [place] on 08/22/17 who presents with extreme fatigue beginning on the AM of admission and REY since her surgery. Fatigue, UTI--UIT resolved, fatigue ongoing -Secondary to combination of recently started Remeron and/or UTI present on admission -Remeron d/c'd -Urine culture with E. coli and pseudomonas. Completed 7 days Cipro -TSH, dig WNL, flu negative Acute on chronic anemia--ongoing -Received 1 unit PRBC this admission -Hgb 7.4 09/28, will repeat H&H at 1600. Hold off on further transfusions for now unless continuing to trend down. Hgb had been stable for last few days previously -Check stool for occult blood -Iron studies all low -Ferrous sulfate 325 mg PO BID -Likely due to bloody pleural effusions B/l pleural effusions - s/p thoracentesis on right--stable -Thoracentesis fluid grossly bloody, exudative -Likely secondary to recent aortic dissection repair -Pulmonology following, appreciate recs: Spoke with Arutro Cruz. Will confirm with Dr. Mckay to see if there is a need for further drainage, but suspect not. Can resume Xarelto if no further procedures. -Xarelto on hold for now Acute on chronic diastolic CHF--acute exacerbation resolved, chronic CHF stable -Resume Lasix 20 mg PO qd. -Continue Lopressor 25 mg PO BID HTN, HLD--stable -Continue Norvasc 10 mg PO qd, metoprolol as above, Lipitor 40 mg PO qd A-fib, h/o sick sinus s/p pacemaker--stable -Continue metoprolol as above, digoxin 125 mcg PO qd -Xarelto on hold until confirmed no more procedures DM II--HgbA1c 6.6 on 08/22/17 -Hold metformin -Insulin sliding scale -Check BSGs q ac and qhs Hypothyroidism -TSH WNL -Continue Synthroid 75 mcg PO qd CKD stage III--stable, baseline creatinine 1.0-1.2 Insomnia w/depression -Remeron stopped due to above -Start Lexapro 5 mg PO qd DVT prophylaxis -Hold chemical prophylaxis until no more procedures -SCDs Dispo -Eventually to [facility] when stable -PT/OT (Mckenzie Delgado ., PAHaley) Attending Attestation: Pt seen/examined, chart reviewed, care plan d/w NIELS Delgado. I agree w/ the liu components of her documentation. Pt w/ no complaints today except occasional back ache. No dyspnea, chest pain, abd pain. Daughter at bedside; reports her mother has been dx with Waldonstrom's and there was talk of "a shot for her anemia." Spoke with Dr. Mckay - no further procedures planned. Ok to resume anticoagulation, but he recommends coumadin in patricia of xarelto in the event we need quick reversal. VSS no fever gen - flat affect, NAD neck - no JVD heart - RRR, s1, s2, 2/6 holosystolic murmur RUSB/LLSB lungs - decreased BS bases b/l abd - soft ext - no edema Hb (repeat) 8.2 Cr 1.1 A/P: 1. recent UTI - resolved, abx d/c. 2. fatigue - due to insomnia, blood disorder (Waldonstroms?), depression, anemia, etc. 3. anemia - consulted heme/onc to assist with anemia management - procrit candidate? Baseline Hb about 9 - no transfusion at this time. 4. depression - agree w/ lexapro. 5. pleural effusions - grossly bloody - exudate - likely due to recent aortic dissection repair; pleural fluid HCT pending to r/o hemothorax but felt less likely. 6. a. fib - rates acceptable, pulmonary ok with resuming anticoagulation but recommend coumadin instead; start coumadin 2.5mg daily; allow INR to slowly rise ; daily INR daughter updated dispo - Mónica PALOMINO (Horacio Palomino MD)
[2017-09-28 16:51] LABS: HEMATOCRIT 26.1 % (37-47); HEMOGLOBIN 8.2 g/dL (12.0-16.0)
[2017-09-28] MEDS ORDERED: WARFARIN SOD 2.5 MG TAB PO ONE (20:00)
[2017-09-28] MEDS: HALOPERIDOL 0.5 MG TAB PO SCH (20:44)
[2017-09-29] VITALS (7 sets, daily range): BP systolic 96–151; BP diastolic 57–68; PULSE 60–91; TEMP 36.3–37.1; O2SAT 92–97; Ht 167.6 cm; Wt 61.0 kg
[2017-09-29] MEDS: LEVOTHYROXINE 75 MCG TAB PO SCH (05:06)
[2017-09-29 06:39] LABS: HEMATOCRIT 26.1 % (37-47); HEMOGLOBIN 8.3 g/dL (12.0-16.0); MEAN CELL VOLUME 94.6 fL (80-100); MEAN CORPUSCULAR HEMOGLOBIN 30.1 pg (25-34); MEAN CORPUSCULAR HGB CONC 31.8 g/dl (32-36); MEAN PLATELET VOLUME 8.7 fL (7.4-10.4); PLATELET COUNT 100 K/uL (130-400); RED CELL DISTRIBUTION WIDTH CV 18.9 % (11.5-14.5); RED CELL DISTRIBUTION WIDTH SD 63.9 fL (36.4-46.3); WHITE BLOOD COUNT 7.46 K/uL (4.8-10.8)
[2017-09-29 07:12] LABS: CALCIUM 8.7 mg/dl (8.5-10.1); CREATININE 1.22 mg/dl (0.60-1.20); POTASSIUM 4.5 mmol/L (3.5-5.1)
--- NOTE | 2017-09-29 07:43 | Oncology Consultation ---
Oncology/Heme Consultation Date of Consultation: Sep 29, 2017. Attending Physician: Horacio Palomino MD Reason for Consultation: Anemia Thrombocytopenia History of lymphoma History of Present Illness Ms. 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 She has never needed any sort of therapy. We are asked to see her today because of an anemia. She also was noted to have a mild thrombocytopenia that seems to be evolving. She had surgery on her aortic aneurysm 2-3 weeks ago. She has according to the records moments of mental confusion that have been apparently not an acute process. There is been no overt bleeding. She denies any blood in her stool. She has not been any nausea or vomiting. Her creatinine has fluctuated since admission being mildly elevated at times. Past Medical/Surgical History Medical Problems: (1) Anemia Status: Acute (2) Anemia Status: Acute (3) Atrial fibrillation with RVR Status: Acute (4) CVA (cerebral vascular accident) Status: Acute (5) Generalized weakness Status: Acute (6) Hypoxia Status: Acute (7) Left-sided weakness Status: Acute (8) Low back pain Status: Acute (9) Near syncope Status: Acute (10) Paroxysmal a-fib Status: Acute (11) Pleural effusion on left Status: Acute (12) Pleural effusion on right Status: Acute (13) Rapid atrial fibrillation Status: Acute Family History Insignificant due to old age Social History Smoking Status: Never Smoker Alcohol Use: none Drug Use: none Marital Status: (6 kids) Housing Status: lives alone 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) Allergies Coded Allergies: Celecoxib (Verified Allergy, Unknown, Unknown, 08/13/16) Home Medications Scheduled Amlodipine (Norvasc), 10 MG PO DAILY Atorvastatin (Lipitor), 40 MG PO DAILY Calcium Carbonate-Vitamin D (Calcium + D), 1 TAB PO BID Cholecalciferol (Vitamin D 1000 Unit), 1,000 INTER.UNIT PO DAILY Cyanocobalamin (Vitamin B12), 1,000 MCG PO QAM Digoxin (Digoxin), 0.125 MG PO QPM Furosemide (Lasix), 20 MG PO BID Levothyroxine Sodium (Levothyroxine Sodium), 75 MCG PO DAILYBB Metformin Hcl (Glucophage), 500 MG PO BID Metoprolol Tartrate (Lopressor) (Lopressor), 25 MG PO BID Mirtazapine Soltab (Remeron Soltab), 7.5 MG PO HS Multiple Vitamin (Multivitamin), 1 TAB PO DAILY Rivaroxaban (Xarelto), 15 MG PO QPM Current Inpatient Medications Current Inpatient Medications Medications (Trade) Dose Ordered Sig/Marija Route Start Time Stop Time Status Last Admin Dose Admin Polyethylene (Miralax Powder Packet) 17 gm DAILY PRN PO 09/18/17 08:45 10/18/17 08:44 Amlodipine Besylate (Norvasc Tab) 10 mg DAILY PO 09/18/17 09:00 10/18/17 08:59 09/28/17 08:13 10 MG Atorvastatin Calcium (Lipitor Tab) 40 mg DAILY PO 09/18/17 09:00 10/18/17 08:59 09/28/17 08:13 40 MG Cholecalciferol (Vitamin D Tab) 1,000 inter.unit DAILY PO 09/18/17 09:00 10/18/17 08:59 09/28/17 08:13 1,000 INTER.UNIT Digoxin (Lanoxin Tab) 0.125 mg DAILY@1600 PO 09/18/17 16:00 10/18/17 15:59 09/28/17 16:11 0.125 MG Levothyroxine Sodium (Synthroid Tab) 75 mcg DAILYBB PO 09/19/17 06:00 10/19/17 06:59 09/29/17 05:06 75 MCG Metoprolol Tartrate (Lopressor Tab) 25 mg BID PO 09/18/17 09:00 10/18/17 08:59 09/28/17 20:45 25 MG Multivitamins (Multivitamin Tab) 1 tab DAILY PO 09/18/17 09:00 10/18/17 08:59 09/28/17 08:14 1 TAB Cyanocobalamin (Vitamin B-12 Tab) 1,000 mcg QAM PO 09/18/17 09:00 10/18/17 08:59 09/28/17 08:13 1,000 MCG Insulin Aspart (novoLOG ASPART) SLIDING SCALE G... ACHS SC 09/18/17 16:15 10/18/17 16:14 09/28/17 17:46 2 UNITS Ferrous Sulfate (Feosol Tab) 325 mg BID PO 09/20/17 09:00 10/20/17 08:59 09/28/17 20:45 325 MG Morphine Sulfate (MoRPHine SULFATE INJ) 2 mg Q8H PRN IV 09/24/17 11:30 10/08/17 11:29 Polyethylene (Miralax Powder Packet) 17 gm DAILY PO 09/26/17 08:00 10/26/17 07:59 09/28/17 08:14 17 GM Senna (Senokot Tab) 17.2 mg QAM PO 09/26/17 10:45 10/26/17 10:44 09/28/17 08:15 17.2 MG Acetaminophen (Tylenol Tab) 1,000 mg TID PRN PO 09/27/17 20:00 10/18/17 08:44 Miscellaneous Medication (Milk And Molasses Enema) 1 ea DAILY PRN MT 09/27/17 18:30 10/27/17 18:29 Furosemide (Lasix Tab) 20 mg QAM PO 09/29/17 08:00 10/29/17 07:59 Escitalopram Oxalate (Lexapro Tab) 5 mg QAM PO 09/29/17 08:00 10/29/17 07:59 Haloperidol (Haldol Tab) 0.5 mg HS PO 09/28/17 21:00 10/18/17 19:14 09/28/17 20:44 0.5 MG Review of Systems Constitutional: Negative for weight loss, night sweats, or fever. Not certain about the accuracy of the ROS Eyes: Negative for event change of vision ENT: Negative for epistaxis, nasal discharge, sore throat, or deafness Cardiovascular: Negative for chest pain, palpitations, dizziness, diaphoresis Respiratory: Negative for new shortness of breath,hemoptysis, or purulent cough Gastrointestinal: Negative for diarrhea, hematemesis, melena, nausea, vomiting , or dyspepsia Integumentary (skin): Negative for rash or jaundice discoloration Genitourinary: Negative for urinary frequency, hematuria, or dysuria Neurological: Negative for new or progressive weakness, no seizure activity, headache, or dizziness Lymphatic/Hematologic: Negative for petechiae, bleeding or new adenopathy Musculoskeletal: Negative for new joint or back pain Allergic/Immunologic: Negative for unusual rash or pruritis. Physical Exam Date Time Temp Pulse Resp B/P (MAP) Pulse Ox O2 Delivery O2 Flow Rate FiO2 09/29/17 04:00 36.6 91 16 151/68 (95) 92 Room Air 09/29/17 00:00 Room Air 09/28/17 23:22 36.7 97 18 137/66 (89) 93 Room Air 09/28/17 19:31 36.4 61 18 117/64 (81) 97 Room Air 09/28/17 16:11 36.6 60 18 112/65 (81) 99 Room Air 09/28/17 16:11 64 09/28/17 16:00 Room Air 09/28/17 11:54 36.4 65 18 126/68 (87) 95 Room Air 09/28/17 08:00 91 Room Air 09/28/17 07:34 36.6 74 18 125/64 (84) 91 Room Air Constitutional: vitals are stable. Alert pleasant female oriented 1-2 Eyes: Eyes are JEANETTE EOMI without conjuctival erythema or icterus. ENT: External examination was negative for masses. Neck: Negative for masses or palpable thyromegaly Respiratory: Lung sounds were generally clear bilaterally Cardiovascular: Heart was RRR with occasional ectopic beat and a 2-3/6 harsh systolic murmur Gastrointestinal: No palpable hepatic or splenomegaly. The abdomen was soft with normal bowel sounds. Lymphatic system: there was no palpable peripheral lymphadenopathy Musculoskeletal System: The musculoskeletal system seemed concordant with age. Skin: The skin was negative for jaundice. Neurologic exam: The exam was negative for any focal findings. Deep tendon reflexes were equal and symmetrical. She is mildly confused Psychiatric exam: Was essentially negative with normal mood and effect. Breast exam: Not done Extremities: Negative for significant edema Laboratory Results Last 24 Hours Test 09/28/17 07:49 09/28/17 09:39 09/28/17 12:11 09/28/17 16:07 Bedside Glucose 125 mg/dl 117 mg/dl White Blood Count 7.37 K/uL Red Blood Count 2.46 M/uL Hemoglobin 7.4 g/dL 8.2 g/dL Hematocrit 23.4 % 26.1 % Mean Corpuscular Volume 95.1 fL Mean Corpuscular Hemoglobin 30.1 pg Mean Corpuscular Hemoglobin Concent 31.6 g/dl RDW Standard Deviation 65.0 fL RDW Coefficient of Variation 18.8 % Platelet Count 86 K/uL Mean Platelet Volume 8.5 fL Sodium Level 136 mmol/L Potassium Level 4.6 mmol/L Chloride Level 101 mmol/L Carbon Dioxide Level 26 mmol/L Anion Gap 9.0 mmol/L Blood Urea Nitrogen 26 mg/dl Creatinine 1.19 mg/dl Est Creatinine Clear Calc Drug Dose 30.6 ml/min Estimated GFR () 47.2 Estimated GFR (Non- 40.7 BUN/Creatinine Ratio 21.8 Random Glucose 195 mg/dl Calcium Level 8.6 mg/dl Test 09/28/17 16:25 09/28/17 20:15 09/29/17 06:22 Bedside Glucose 120 mg/dl 170 mg/dl White Blood Count 7.46 K/uL Red Blood Count 2.76 M/uL Hemoglobin 8.3 g/dL Hematocrit 26.1 % Mean Corpuscular Volume 94.6 fL Mean Corpuscular Hemoglobin 30.1 pg Mean Corpuscular Hemoglobin Concent 31.8 g/dl RDW Standard Deviation 63.9 fL RDW Coefficient of Variation 18.9 % Platelet Count 100 K/uL Mean Platelet Volume 8.7 fL Prothrombin Time 10.9 SECONDS Prothromb Time International Ratio 1.0 Sodium Level 136 mmol/L Potassium Level 4.5 mmol/L Chloride Level 102 mmol/L Carbon Dioxide Level 27 mmol/L Anion Gap 7.0 mmol/L Blood Urea Nitrogen 25 mg/dl Creatinine 1.22 mg/dl Est Creatinine Clear Calc Drug Dose 29.8 ml/min Estimated GFR () 45.8 Estimated GFR (Non- 39.5 BUN/Creatinine Ratio 20.6 Random Glucose 130 mg/dl Calcium Level 8.7 mg/dl Lactate Dehydrogenase 172 U/L Assessment & Plan The anemia most likely is related to her recent surgery with mild renal insufficiency. She does have a history of lymphoma and would suggest a sonogram of her kidneys. Platelet count today is 100,000 and hopefully this is recovering. Review of her peripheral smear shows though some ianiso and poikilocytosis without many fragmented cells at all. PT and PTT are acceptable. I suspect the thrombocytopenia also is still residual effect from the recent surgery. The marrows ability to recover is surely compromised by the known presence of lymphoma within the marrow. No therapy is planned at this time for the lymphoma. As far as the anemia for now I would transfuse to try and keep the hemoglobin above 9. If in fact the hemoglobin continues over time to stay below 10 g/dL then we can introduce erythropoietin. Of course exogenous erythropoietin will not change the hemoglobin acutely and frankly will not change the hemoglobin predictably for several weeks. Thank you
[2017-09-29] MEDS: SENNA 8.6 MG TAB PO SCH (09:15)
[2017-09-29] MEDS: METOPROLOL TARTRATE 25 MG TAB PO SCH ×2 (09:15→20:09)
[2017-09-29] MEDS: CYANOCOBALAMIN 500 MCG TAB (VIT B-12) PO SCH (09:15)
[2017-09-29] MEDS: CHOLECALCIFEROL 1000 INTER.UNIT TAB PO SCH (09:15)
[2017-09-29] MEDS: INSULIN ASPART 100 UNITS/ML 3 ML PEN SC SCH ×4 (09:15→20:11)
[2017-09-29] MEDS: ESCITALOPRAM OXALATE 10 MG TAB PO SCH (09:15)
[2017-09-29] MEDS: FERROUS SULFATE 325 MG TAB PO SCH ×2 (09:15→20:09)
[2017-09-29] MEDS: ATORVASTATIN 40 MG TAB PO SCH (09:15)
[2017-09-29] MEDS: AMLODIPINE BESYLATE 5 MG TAB PO SCH (09:15)
[2017-09-29] MEDS: MULTIVITAMIN TAB PO SCH (09:15)
[2017-09-29] MEDS: FUROSEMIDE 20 MG TAB PO SCH (09:15)
[2017-09-29] MEDS: POLYETHYLENE (MIRALAX) 17 GM PACK PO SCH (09:15)
--- NOTE | 2017-09-29 11:54 | Pulmonology Progress Note ---
Pulmonary Progress Note Date of Service Sep 29, 2017. Attending Dr. Mckay Subjective Patient stable with no acute changes in her respiratory status Objective Sitting up in bed and no signs of respiratory distress VS: Stable on RA General - NAD. Short-term memory loss. Unable to recall simple commands or subjects. Disoriented Eyes - No icterus, gaze conjugate ENT - Mucosa moist, no lesions or candidiasis Neck - Supple, No JVD Lungs - diminished breath sounds bilaterally. with thoracic US shwoing bilateral pleural effusions R>L Heart - Regular, rate controlled Abdomen - Soft, NT, ND, BS present Extremities - No edema, pedal pulses intact Neuro - awake and alert but disoriented. Assessment & Plan 78-year-old female admitted with CHF exacerbation bilateral pleural effusions: BILATERAL PLEURAL EFFUSIONS * S/P thoracentesis 09/24/17 * No significant findings at this time, pleural HCT pending * Start Coumadin at this time and and changes to Xarelto after pleural HCT returns Data Medications: Current Inpatient Medications Medications (Trade) Dose Ordered Sig/Marija Route Start Time Stop Time Status Last Admin Dose Admin Polyethylene (Miralax Powder Packet) 17 gm DAILY PRN PO 09/18/17 08:45 10/18/17 08:44 Amlodipine Besylate (Norvasc Tab) 10 mg DAILY PO 09/18/17 09:00 10/18/17 08:59 09/29/17 09:15 10 MG Atorvastatin Calcium (Lipitor Tab) 40 mg DAILY PO 09/18/17 09:00 10/18/17 08:59 09/29/17 09:15 40 MG Cholecalciferol (Vitamin D Tab) 1,000 inter.unit DAILY PO 09/18/17 09:00 10/18/17 08:59 09/29/17 09:15 1,000 INTER.UNIT Digoxin (Lanoxin Tab) 0.125 mg DAILY@1600 PO 09/18/17 16:00 10/18/17 15:59 09/28/17 16:11 0.125 MG Levothyroxine Sodium (Synthroid Tab) 75 mcg DAILYBB PO 09/19/17 06:00 10/19/17 06:59 09/29/17 05:06 75 MCG Metoprolol Tartrate (Lopressor Tab) 25 mg BID PO 09/18/17 09:00 10/18/17 08:59 09/29/17 09:15 25 MG Multivitamins (Multivitamin Tab) 1 tab DAILY PO 09/18/17 09:00 10/18/17 08:59 09/29/17 09:15 1 TAB Cyanocobalamin (Vitamin B-12 Tab) 1,000 mcg QAM PO 09/18/17 09:00 10/18/17 08:59 09/29/17 09:15 1,000 MCG Insulin Aspart (novoLOG ASPART) SLIDING SCALE G... ACHS SC 09/18/17 16:15 10/18/17 16:14 09/29/17 09:15 2 UNITS Ferrous Sulfate (Feosol Tab) 325 mg BID PO 09/20/17 09:00 10/20/17 08:59 09/29/17 09:15 325 MG Morphine Sulfate (MoRPHine SULFATE INJ) 2 mg Q8H PRN IV 09/24/17 11:30 10/08/17 11:29 Polyethylene (Miralax Powder Packet) 17 gm DAILY PO 09/26/17 08:00 10/26/17 07:59 09/29/17 09:15 17 GM Senna (Senokot Tab) 17.2 mg QAM PO 09/26/17 10:45 10/26/17 10:44 09/29/17 09:15 17.2 MG Acetaminophen (Tylenol Tab) 1,000 mg TID PRN PO 09/27/17 20:00 10/18/17 08:44 Miscellaneous Medication (Milk And Molasses Enema) 1 ea DAILY PRN [place] 09/27/17 18:30 10/27/17 18:29 Furosemide (Lasix Tab) 20 mg QAM PO 09/29/17 08:00 10/29/17 07:59 09/29/17 09:15 20 MG Escitalopram Oxalate (Lexapro Tab) 5 mg QAM PO 09/29/17 08:00 10/29/17 07:59 09/29/17 09:15 5 MG Haloperidol (Haldol Tab) 0.5 mg HS PO 09/28/17 21:00 10/18/17 19:14 09/28/17 20:44 0.5 MG Vital Signs: Date Time Temp Pulse Resp B/P (MAP) Pulse Ox O2 Delivery O2 Flow Rate FiO2 09/29/17 11:00 Room Air 09/29/17 10:04 Room Air 09/29/17 08:42 36.4 83 14 127/67 (87) 97 09/29/17 04:00 36.6 91 16 151/68 (95) 92 Room Air 09/29/17 00:00 Room Air 09/28/17 23:22 36.7 97 18 137/66 (89) 93 Room Air 09/28/17 19:31 36.4 61 18 117/64 (81) 97 Room Air 09/28/17 16:11 36.6 60 18 112/65 (81) 99 Room Air 09/28/17 16:11 64 09/28/17 16:00 Room Air 09/28/17 11:54 36.4 65 18 126/68 (87) 95 Room Air Laboratory Results: Last 24 Hours Test 09/28/17 12:11 09/28/17 16:07 09/28/17 16:25 09/28/17 20:15 Bedside Glucose 117 mg/dl 120 mg/dl 170 mg/dl Hemoglobin 8.2 g/dL Hematocrit 26.1 % Test 09/29/17 06:22 09/29/17 08:03 White Blood Count 7.46 K/uL Red Blood Count 2.76 M/uL Hemoglobin 8.3 g/dL Hematocrit 26.1 % Mean Corpuscular Volume 94.6 fL Mean Corpuscular Hemoglobin 30.1 pg Mean Corpuscular Hemoglobin Concent 31.8 g/dl RDW Standard Deviation 63.9 fL RDW Coefficient of Variation 18.9 % Platelet Count 100 K/uL Mean Platelet Volume 8.7 fL Prothrombin Time 10.9 SECONDS Prothromb Time International Ratio 1.0 Sodium Level 136 mmol/L Potassium Level 4.5 mmol/L Chloride Level 102 mmol/L Carbon Dioxide Level 27 mmol/L Anion Gap 7.0 mmol/L Blood Urea Nitrogen 25 mg/dl Creatinine 1.22 mg/dl Est Creatinine Clear Calc Drug Dose 29.8 ml/min Estimated GFR () 45.8 Estimated GFR (Non- 39.5 BUN/Creatinine Ratio 20.6 Random Glucose 130 mg/dl Calcium Level 8.7 mg/dl Lactate Dehydrogenase 172 U/L Bedside Glucose 132 mg/dl
[2017-09-29] MEDS: DIGOXIN 0.125 MG TAB PO SCH (16:11)
[2017-09-29] MEDS: HALOPERIDOL 0.5 MG TAB PO SCH (20:12)
--- NOTE | 2017-09-29 22:57 | Progress Note ---
Subjective Date of Service: Sep 29, 2017. Subjective Pt evaluation today including: conversation w/ patient, conversation w/ family (daughters at bedside), physical exam, chart review, lab review, conversation w / recruiting operations consultant (pulmonary) Pain: none PO Intake: fair Voiding: no voiding problems per staff she slept much better last night with low-dose haldol no complaints during the visit still waiting on placement at [facility] Problem List Medical Problems: (1) Anemia Status: Acute (2) Anemia Status: Acute (3) Atrial fibrillation with RVR Status: Acute (4) CVA (cerebral vascular accident) Status: Acute (5) Generalized weakness Status: Acute (6) Hypoxia Status: Acute (7) Left-sided weakness Status: Acute (8) Low back pain Status: Acute (9) Near syncope Status: Acute (10) Paroxysmal a-fib Status: Acute (11) Pleural effusion on left Status: Acute (12) Pleural effusion on right Status: Acute (13) Rapid atrial fibrillation Status: Acute Review of Systems Respiratory: No cough, No shortness of breath Cardiac: No chest pain Abdomen: No pain, No constipation Objective Vital Signs Date Time Temp Pulse Resp B/P (MAP) Pulse Ox O2 Delivery O2 Flow Rate FiO2 09/29/17 19:35 36.6 60 18 116/63 (80) 94 Room Air 09/29/17 19:30 Room Air 09/29/17 16:11 72 09/29/17 16:00 Room Air 09/29/17 15:05 36.3 60 14 115/68 (84) 94 09/29/17 14:10 60 108/64 (79) 64 103/57 (72) 63 96/60 (72) 09/29/17 12:20 37.1 60 16 103/57 (72) 97 Room Air 09/29/17 11:00 Room Air 09/29/17 10:04 Room Air 09/29/17 08:42 36.4 83 14 127/67 (87) 97 09/29/17 04:00 36.6 91 16 151/68 (95) 92 Room Air 09/29/17 00:00 Room Air 09/28/17 23:22 36.7 97 18 137/66 (89) 93 Room Air Physical Exam General Appearance: no apparent distress, + pertinent finding (looks better rested today) ENT: pharynx normal Neck: no JVD Respiratory/Chest: no respiratory distress, no accessory muscle use, + decreased breath sounds (bases), + rales (minimal bases) Cardiovascular: regular rate, rhythm, no gallop, + systolic murmur (2/6 RUSB/ LSB) Abdomen: normal bowel sounds, non tender, soft, no organomegaly Extremities: no pedal edema Neurologic/Psychiatric: + depressed affect Laboratory Results Last 24 Hours Test 09/29/17 06:22 09/29/17 08:03 09/29/17 11:49 09/29/17 16:38 White Blood Count 7.46 K/uL Red Blood Count 2.76 M/uL Hemoglobin 8.3 g/dL Hematocrit 26.1 % Mean Corpuscular Volume 94.6 fL Mean Corpuscular Hemoglobin 30.1 pg Mean Corpuscular Hemoglobin Concent 31.8 g/dl RDW Standard Deviation 63.9 fL RDW Coefficient of Variation 18.9 % Platelet Count 100 K/uL Mean Platelet Volume 8.7 fL Prothrombin Time 10.9 SECONDS Prothromb Time International Ratio 1.0 Sodium Level 136 mmol/L Potassium Level 4.5 mmol/L Chloride Level 102 mmol/L Carbon Dioxide Level 27 mmol/L Anion Gap 7.0 mmol/L Blood Urea Nitrogen 25 mg/dl Creatinine 1.22 mg/dl Est Creatinine Clear Calc Drug Dose 29.8 ml/min Estimated GFR () 45.8 Estimated GFR (Non- 39.5 BUN/Creatinine Ratio 20.6 Random Glucose 130 mg/dl Calcium Level 8.7 mg/dl Lactate Dehydrogenase 172 U/L Bedside Glucose 132 mg/dl 133 mg/dl 131 mg/dl Test 09/29/17 19:36 Bedside Glucose 199 mg/dl Assessment and Plan 86yo female with - 1. extreme fatigue - likely was combination of remeron and UTI at time of admission. Remeron has been d/c, and UTI has been Rx. Anemia may have played a very small role as well. TSH, dig level, etc - all normal. 2. acute/chronic anemia - s/p 1 unit of PRBCs this admission with stable Hb in the 8-9 range with no overt GI bleeding or other obvious blood loss in other locations. Iron studies -- transferrin sat <20% - replacing with ferrous sulfate 325 BID; b12/folate acceptable. Bloody pleural fluid was likely fluid from her open heart surgery. CBC in am for stability. Appreciate Dr. Euceda's consult - no plans for erythropoetin at this time. Chronic anemia is likely due to a low-grade lymphoma that was dx several years ago. 3. e.coli and pseudomonas UTI - completed 7 days of cipro. 4. acute/chronic diastolic CHF - compensated; cont BB, low-dose lasix. 5. pacemaker status - noted, stable. 6. a. fib - continue BB, digoxin. Resume xarelto tomorrow; no procedures planned. 7. hypothyroidism - cont synthroid; TSH compensated. 8. recent insomnia - remeron stopped. Haldol 0.5mg at HS has helped and has not caused excessive sedation. 9. hyperlipidemia - cont statin. 10. CKD stage 4 - creatinine is stable. 11. DVT proph - resume xarelto. 12. HTN - controlled. 13. encephalopathy, likely hospital psychosis vs metabolic (from recent UTI) - waxes/wanes but seems better. 14. insomnia with depression - stopped remeron due to concern of excess sedation. Lexapro started this week and tolerating thus far. 15. recent type A aortic dissection repair - in light of age made incredible recovery. PT, OT to help w/ her deconditioning. 16. T2DM - hold metformin. BSG's ac/hs. Novolog correction/carb coverage for now. Goal range 120-180. Overall control acceptable. 17. constipation - cont aggressive bowel regimen. 18. hyponatremia - resolved. 19. b/l pleural effusions - s/p thoracentesis on right - fluid grossly bloody, exudative by lite's criteria. Suspect this was 2nd to her recent open heart surgery. Unable to perform pleural fluid hematocrit on fluid (as per Dr. Mckay). Unlikely to be hemothorax, however. From Dr. Mckay's standpoint OK TO RESUME XARELTO (some discussion about coumadin, but final plan is resumption of xarelto). She remains stable in RA. dispo - SNF at [facility] family updated again today Continued [facility] stay due to: ambulation difficulties [facility]
[2017-09-30] VITALS (12 sets, daily range): BP systolic 111–148; BP diastolic 56–73; PULSE 59–78; TEMP 36.4–37; O2SAT 93–98
[2017-09-30] MEDS: LEVOTHYROXINE 75 MCG TAB PO SCH (06:00)
[2017-09-30 06:15] LABS: HEMATOCRIT 23.8 % (37-47); HEMOGLOBIN 7.6 g/dL (12.0-16.0); MEAN CELL VOLUME 95.2 fL (80-100); MEAN CORPUSCULAR HEMOGLOBIN 30.4 pg (25-34); MEAN CORPUSCULAR HGB CONC 31.9 g/dl (32-36); RED CELL DISTRIBUTION WIDTH CV 19.1 % (11.5-14.5); RED CELL DISTRIBUTION WIDTH SD 65.7 fL (36.4-46.3)
[2017-09-30 06:19] LABS: MEAN PLATELET VOLUME 9.3 fL (7.4-10.4); PLATELET COUNT 90 K/uL (130-400)
[2017-09-30 06:54] LABS: CALCIUM 8.4 mg/dl (8.5-10.1); CREATININE 1.06 mg/dl (0.60-1.20); POTASSIUM 4.5 mmol/L (3.5-5.1)
[2017-09-30] MEDS: FUROSEMIDE 20 MG TAB PO SCH (08:18)
[2017-09-30] MEDS: METOPROLOL TARTRATE 25 MG TAB PO SCH ×2 (08:18→20:54)
[2017-09-30] MEDS: ESCITALOPRAM OXALATE 10 MG TAB PO SCH (08:18)
[2017-09-30] MEDS: FERROUS SULFATE 325 MG TAB PO SCH ×2 (08:18→20:54)
[2017-09-30] MEDS: ATORVASTATIN 40 MG TAB PO SCH (08:18)
[2017-09-30] MEDS: CYANOCOBALAMIN 500 MCG TAB (VIT B-12) PO SCH (08:19)
[2017-09-30] MEDS: AMLODIPINE BESYLATE 5 MG TAB PO SCH (08:19)
[2017-09-30] MEDS: RIVAROXABAN TAB 15 MG TAB PO SCH (08:19)
[2017-09-30] MEDS: POLYETHYLENE (MIRALAX) 17 GM PACK PO SCH (08:19)
[2017-09-30] MEDS: CHOLECALCIFEROL 1000 INTER.UNIT TAB PO SCH (08:19)
[2017-09-30] MEDS: SENNA 8.6 MG TAB PO SCH (08:19)
[2017-09-30] MEDS: MULTIVITAMIN TAB PO SCH (08:19)
[2017-09-30] MEDS: INSULIN ASPART 100 UNITS/ML 3 ML PEN SC SCH ×4 (08:25→20:53)
--- NOTE | 2017-09-30 12:00 | Hospitalist Progress Note ---
Hospitalist Progress Note Date of Service Sep 30, 2017. (Mckenzie Delgado ., NIELS-C) Subjective Pt evaluation today including: conversation w/ patient, conversation w/ family (daughter and daugther in law at bedside), physical exam, chart review, lab review, review of inpatient medication list Pain: None PO Intake: Tolerating PO diet Voiding: no voiding problems Patient reports feeling fatigued. She states she has an intermittent pain in her left flank at times, but denies any currently. She is unsure of anything that brings on the pain or aggravating factors. The patient denies fevers, chills, sweats, chest pain, palpitations, claudication, cough, wheezing, shortness of breath, nausea, vomiting, abdominal pain, dysuria, hematuria, urinary retention, paralysis, weakness, numbness and tingling. Additional Comments: See HPI for pertinent positives and negatives. All other systems reviewed and negative. (Mckenzie Delgado ., PA-C) Objective Vital Signs Date Time Temp Pulse Resp B/P (MAP) Pulse Ox O2 Delivery O2 Flow Rate FiO2 09/30/17 11:43 36.4 59 18 111/68 (82) 97 Room Air 09/30/17 10:35 Room Air 09/30/17 07:52 36.6 71 18 133/65 (87) 94 Room Air 09/30/17 03:26 36.8 76 20 145/65 (91) 94 Room Air 09/30/17 00:05 Room Air 09/29/17 23:06 36.6 61 18 105/58 (74) 95 Room Air 09/29/17 19:35 36.6 60 18 116/63 (80) 94 Room Air 09/29/17 19:30 Room Air 09/29/17 16:11 72 09/29/17 16:00 Room Air 09/29/17 15:05 36.3 60 14 115/68 (84) 94 09/29/17 14:10 60 108/64 (79) 64 103/57 (72) 63 96/60 (72) 09/29/17 12:20 37.1 60 16 103/57 (72) 97 Room Air (Mckenzie Delgado ., NIELS-C) Physical Exam Notes: General appearance: Well-developed, well-nourished, no apparent distress Head: Normocephalic, atraumatic Eyes: Normal inspection, PERRL, EOMI ENT: Normal ENT inspection, hearing grossly normal, pharynx normal Neck: Supple, no JVD, trachea midline Respiratory/Chest: +Decreased breath sounds especially in bases bilaterally. Lungs clear to auscultation, no respiratory distress Cardiovascular: +Systolic murmur. Regular rate & rhythm, no gallop Abdomen/GI: Normal bowel sounds, non-tender, soft Extremities/Musculoskeletal: Normal inspection, no calf tenderness, no pedal edema Neurological/Psych: +Disoriented to time, confused. Alert, normal mood/affect , oriented x 2 Skin: +Sternal scar. Normal color, warm/dry, no rash (Mckenzie Delgado PA-C) Laboratory Results Last 24 Hours Test 09/29/17 11:49 09/29/17 16:38 09/29/17 19:36 09/30/17 05:50 Bedside Glucose 133 mg/dl 131 mg/dl 199 mg/dl White Blood Count 7.70 K/uL Red Blood Count 2.50 M/uL Hemoglobin 7.6 g/dL Hematocrit 23.8 % Mean Corpuscular Volume 95.2 fL Mean Corpuscular Hemoglobin 30.4 pg Mean Corpuscular Hemoglobin Concent 31.9 g/dl RDW Standard Deviation 65.7 fL RDW Coefficient of Variation 19.1 % Platelet Count 90 K/uL Mean Platelet Volume 9.3 fL Platelet Estimate NORMAL Sodium Level 134 mmol/L Potassium Level 4.5 mmol/L Chloride Level 101 mmol/L Carbon Dioxide Level 26 mmol/L Anion Gap 7.0 mmol/L Blood Urea Nitrogen 22 mg/dl Creatinine 1.06 mg/dl Est Creatinine Clear Calc Drug Dose 34.3 ml/min Estimated GFR () 54.3 Estimated GFR (Non- 46.8 BUN/Creatinine Ratio 21.0 Random Glucose 103 mg/dl Calcium Level 8.4 mg/dl Test 09/30/17 07:46 Bedside Glucose 121 mg/dl (Mckenzie Delgado PA-C) Assessment and Plan 86 y/o female with a history of HTN, a-fib, sick sinus s/p pacemaker, hypothyroidism, DM II, CKD stage III, and recent type A aortic dissection s/p repair at [place] on 08/22/17 who presents with extreme fatigue beginning on the AM of admission and REY since her surgery. Fatigue, UTI--UIT resolved, fatigue ongoing -Secondary to combination of recently started Remeron and/or UTI present on admission -Remeron d/c'd -Urine culture with E. coli and pseudomonas. Completed 7 days Cipro -TSH, dig WNL, flu negative Acute on chronic anemia--ongoing -Received 1 unit PRBC this admission -Hgb 7.6 on 09/30. Repeat Hgb at 1200 still 7.6 -Transfuse 1 unit now, continue to monitor -Check stool for occult blood, uncollected -Iron studies all low -Ferrous sulfate 325 mg PO BID -Likely due to bloody pleural effusions B/l pleural effusions - s/p thoracentesis on right--stable -Thoracentesis fluid grossly bloody, exudative -Likely secondary to recent aortic dissection repair -Pulmonology following, appreciate recs: Ok to resume Xarelto, no further procedures planned at this time. -Xarelto 15 mg PO qd resumed 09/30 Acute on chronic diastolic CHF--acute exacerbation resolved, chronic CHF stable -Resume Lasix 20 mg PO qd. -Continue Lopressor 25 mg PO BID HTN, HLD--stable -Continue Norvasc 10 mg PO qd, metoprolol as above, Lipitor 40 mg PO qd A-fib, h/o sick sinus s/p pacemaker--stable -Continue metoprolol as above, digoxin 125 mcg PO qd, Xarelto 15 mg PO qd DM II--HgbA1c 6.6 on 08/22/17 -Hold metformin -Insulin sliding scale -Check BSGs q ac and qhs Hypothyroidism -TSH WNL -Continue Synthroid 75 mcg PO qd CKD stage III--stable, baseline creatinine 1.0-1.2 Insomnia w/depression -Remeron stopped due to above -Continue Lexapro 5 mg PO qd -Haldol 0.5 mg PO hs DVT prophylaxis -Xarelto -SCDs Dispo -Eventually to [facility] when stable -PT/OT Continued [facility] stay due to: home environment unsafe for pt (Mckenzie Delgado ., PA-C) PA Physician Supervision Note: I interviewed and examined the patient. Discussed with Mckenzie Delgado PAC and agree with findings and plan as documented in the note. Any exceptions or clarifications are listed here: None Mrs. Li looks and feels better since instituting antidepressant. The patient however has had a slight drop in her hemoglobin. She typically has been chronically anemic however is slightly lower today even on recheck. This is in the face of restarting her Xarelto. Vital signs show temp of 36 6 pulse 71 respiration rate 18 BP 133/67 Her lung exam continues to have good aeration in the right lung field left lung field there is some basilar dullness This patient is here with a postoperative pleural effusion which was bloody she is acute on chronic anemia likely from nutrition and also some blood loss postoperatively from her distant one month ago aortic repair. The patient will have her hemoglobin checked in the morning if it remains low we will consider transfusion and holding Xarelto if improves we'll continue to support her diet and monitor as an outpatient. Documented By: Cedric De La Garza (Cedric De La Garza M.D.)
[2017-09-30 12:25] LABS: HEMATOCRIT 23.7 % (37-47); HEMOGLOBIN 7.6 g/dL (12.0-16.0)
[2017-09-30] MEDS: DIGOXIN 0.125 MG TAB PO SCH (15:49)
[2017-09-30] MEDS: HALOPERIDOL 0.5 MG TAB PO SCH (20:54)
[2017-10-01] MEDS: LEVOTHYROXINE 75 MCG TAB PO SCH (05:31)
[2017-10-01 06:36] LABS: HEMATOCRIT 28.3 % (37-47); HEMOGLOBIN 9.4 g/dL (12.0-16.0); MEAN CELL VOLUME 93.1 fL (80-100); MEAN CORPUSCULAR HEMOGLOBIN 30.9 pg (25-34); MEAN CORPUSCULAR HGB CONC 33.2 g/dl (32-36); RED CELL DISTRIBUTION WIDTH CV 18.5 % (11.5-14.5); RED CELL DISTRIBUTION WIDTH SD 61.4 fL (36.4-46.3); WHITE BLOOD COUNT 7.69 K/uL (4.8-10.8)
[2017-10-01 06:37] LABS: MEAN PLATELET VOLUME 9.4 fL (7.4-10.4); PLATELET COUNT 93 K/uL (130-400)
[2017-10-01 07:49] VITALS: BP 145/69; PULSE 73; TEMP 36.6; O2SAT 96
[2017-10-01] MEDS: ATORVASTATIN 40 MG TAB PO SCH (08:28)
[2017-10-01] MEDS: ESCITALOPRAM OXALATE 10 MG TAB PO SCH (08:28)
[2017-10-01] MEDS: FUROSEMIDE 20 MG TAB PO SCH (08:28)
[2017-10-01] MEDS: METOPROLOL TARTRATE 25 MG TAB PO SCH ×2 (08:28→21:06)
[2017-10-01] MEDS: FERROUS SULFATE 325 MG TAB PO SCH ×2 (08:28→21:06)
[2017-10-01] MEDS: SENNA 8.6 MG TAB PO SCH (08:29)
[2017-10-01] MEDS: AMLODIPINE BESYLATE 5 MG TAB PO SCH (08:29)
[2017-10-01] MEDS: CHOLECALCIFEROL 1000 INTER.UNIT TAB PO SCH (08:29)
[2017-10-01] MEDS: POLYETHYLENE (MIRALAX) 17 GM PACK PO SCH ×2 (08:29→08:43)
[2017-10-01] MEDS: MULTIVITAMIN TAB PO SCH (08:29)
[2017-10-01] MEDS: RIVAROXABAN TAB 15 MG TAB PO SCH (08:29)
[2017-10-01] MEDS: CYANOCOBALAMIN 500 MCG TAB (VIT B-12) PO SCH (08:29)
[2017-10-01] MEDS: INSULIN ASPART 100 UNITS/ML 3 ML PEN SC SCH ×4 (08:40→21:00)
[2017-10-01 10:43] VITALS: BP 116/66; PULSE 64; TEMP 36.4; O2SAT 98
[2017-10-01] MEDS ORDERED: COUGH DROP (SUGAR FREE) LOZ 24 LOZ/1 BOX LOZ ONE (11:39)
[2017-10-01] MEDS ORDERED: NURSING DECISION MEDICATION ORDER SCH (11:45)
--- NOTE | 2017-10-01 12:45 | Hospitalist Progress Note ---
Hospitalist Progress Note Date of Service Oct 01, 2017. (Mckenzie Delgado .JUSTINA) Subjective Pt evaluation today including: conversation w/ patient, physical exam, chart review, lab review, review of inpatient medication list Pain: None PO Intake: Tolerating PO diet Voiding: no voiding problems Patient still complains of fatigue but otherwise currently denies any complaints. No abdominal pain today. The patient denies fevers, chills, sweats , chest pain, palpitations, claudication, cough, wheezing, shortness of breath, nausea, vomiting, abdominal pain, dysuria, hematuria, urinary retention, paralysis, weakness, numbness and tingling. Additional Comments: See HPI for pertinent positives and negatives. All other systems reviewed and negative. (Mckenzie Delgado PA-C) Objective Vital Signs Date Time Temp Pulse Resp B/P (MAP) Pulse Ox O2 Delivery O2 Flow Rate FiO2 10/01/17 10:46 Room Air 10/01/17 10:43 36.4 64 16 116/66 (83) 98 Room Air 10/01/17 08:01 Room Air 10/01/17 07:49 36.6 73 18 145/69 (94) 96 Room Air 10/01/17 01:30 Room Air 09/30/17 23:58 36.5 68 18 122/63 (82) 96 Room Air 09/30/17 20:43 36.7 60 18 116/63 97 09/30/17 19:45 36.4 60 18 122/66 96 09/30/17 18:45 36.6 60 18 117/56 95 09/30/17 18:16 36.7 61 18 122/57 98 09/30/17 17:45 37.0 62 18 126/68 96 09/30/17 17:32 37.0 66 18 148/60 96 09/30/17 17:15 37.0 60 18 136/73 09/30/17 16:00 Room Air 09/30/17 15:49 64 09/30/17 14:24 78 93 (Mckenzie Delgado PA-C) Physical Exam Notes: General appearance: Well-developed, well-nourished, no apparent distress Head: Normocephalic, atraumatic Eyes: Normal inspection, PERRL, EOMI ENT: Normal ENT inspection, hearing grossly normal, pharynx normal Neck: Supple, no JVD, trachea midline Respiratory/Chest: +Decreased breath sounds especially in bases bilaterally. Lungs clear to auscultation, no respiratory distress Cardiovascular: +Systolic murmur. Regular rate & rhythm, no gallop Abdomen/GI: Normal bowel sounds, non-tender, soft Extremities/Musculoskeletal: Normal inspection, no calf tenderness, no pedal edema Neurological/Psych: +Disoriented to time, confused. Alert, normal mood/affect , oriented x 2 Skin: +Sternal scar. Normal color, warm/dry, no rash (Mckenzie Delgado ., PA-C) Laboratory Results Last 24 Hours Test 09/30/17 16:00 09/30/17 16:26 09/30/17 19:56 10/01/17 06:06 Stool Occult Blood NEGATIVE Bedside Glucose 178 mg/dl 133 mg/dl White Blood Count 7.69 K/uL Red Blood Count 3.04 M/uL Hemoglobin 9.4 g/dL Hematocrit 28.3 % Mean Corpuscular Volume 93.1 fL Mean Corpuscular Hemoglobin 30.9 pg Mean Corpuscular Hemoglobin Concent 33.2 g/dl RDW Standard Deviation 61.4 fL RDW Coefficient of Variation 18.5 % Platelet Count 93 K/uL Mean Platelet Volume 9.4 fL Test 10/01/17 07:42 10/01/17 11:49 Bedside Glucose 132 mg/dl 136 mg/dl (Mckenzie Delgado ., PA-C) Assessment and Plan 86 y/o female with a history of HTN, a-fib, sick sinus s/p pacemaker, hypothyroidism, DM II, CKD stage III, and recent type A aortic dissection s/p repair at [place] on 08/22/17 who presents with extreme fatigue beginning on the AM of admission and REY since her surgery. Fatigue, UTI--UIT resolved, fatigue ongoing -Secondary to combination of recently started Remeron and/or UTI present on admission -Remeron d/c'd -Urine culture with E. coli and pseudomonas. Completed 7 days Cipro -TSH, dig WNL, flu negative Acute on chronic anemia--ongoing -Received 1 unit PRBC early this admission -Hgb 9.4 on 10/01 s/p 1 unit PRBC -Stool heme negative -Iron studies all low -Ferrous sulfate 325 mg PO BID -Likely due to bloody pleural effusions B/l pleural effusions - s/p thoracentesis on right--stable -Thoracentesis fluid grossly bloody, exudative -Likely secondary to recent aortic dissection repair -Pulmonology following, appreciate recs: Ok to resume Xarelto, no further procedures planned at this time. -Xarelto 15 mg PO qd resumed 09/30 Acute on chronic diastolic CHF--acute exacerbation resolved, chronic CHF stable -Resume Lasix 20 mg PO qd. -Continue Lopressor 25 mg PO BID HTN, HLD--stable -Continue Norvasc 10 mg PO qd, metoprolol as above, Lipitor 40 mg PO qd A-fib, h/o sick sinus s/p pacemaker--stable -Continue metoprolol as above, digoxin 125 mcg PO qd, Xarelto 15 mg PO qd DM II--HgbA1c 6.6 on 08/22/17 -Hold metformin -Insulin sliding scale -Check BSGs q ac and qhs Hypothyroidism -TSH WNL -Continue Synthroid 75 mcg PO qd CKD stage III--stable, baseline creatinine 1.0-1.2 Insomnia w/depression -Remeron stopped due to above -Continue Lexapro 5 mg PO qd -Haldol 0.5 mg PO hs DVT prophylaxis -Xarelto -SCDs Dispo -Medically stable for discharge to [facility]. No beds available today but can take tomorrow Continued [facility] stay due to: home environment unsafe for pt (Mckenzie Delgado ., PA-C) PA Physician Supervision Note: I interviewed and examined the patient. Discussed with Mckenzie Delgado PAC and agree with findings and plan as documented in the note. Any exceptions or clarifications are listed here: None Patient looks remarkably well today her hemoglobin is augmented nicely status post transfusion she continues to me remain sleepy during the day falling asleep during my visit her family is at the bedside and updated Temperature 36 6 pulse 73 respirations rate 18 BP 145/69 and O2 sat 96 and room air [place] exam shows decreased breath sounds at the bases now left greater than right her cardiac exam is regular with a systolic murmur This patient is improved with treatment of anemia this was with caution as she has resumed her full anticoagulation and recently had a bloody pleural effusion drained we'll continue to monitor her hemoglobin carefully but if stable on the will likely consider transfer to rehabilitation Documented By: Cedric De La Garza (Cedric De La Garza M.D.)
[2017-10-01] MEDS ORDERED: COUGH DROP (SUGAR FREE) LOZ 24 LOZ/1 BOX LOZ PRN (13:00)
[2017-10-01 15:03] VITALS: BP 110/61; PULSE 60; TEMP 36.5; O2SAT 97
[2017-10-01] MEDS: DIGOXIN 0.125 MG TAB PO SCH (16:06)
[2017-10-01 19:18] VITALS: BP 128/62; PULSE 64; TEMP 36.7; O2SAT 94
[2017-10-01] MEDS: HALOPERIDOL 0.5 MG TAB PO SCH (21:06)
[2017-10-01 23:36] VITALS: BP 119/67; PULSE 66; TEMP 36.5; O2SAT 96
[2017-10-02] MEDS: LEVOTHYROXINE 75 MCG TAB PO SCH (06:39)
[2017-10-02 06:42] LABS: HEMOGLOBIN 9.2 g/dL (12.0-16.0); MEAN CORPUSCULAR HEMOGLOBIN 30.9 pg (25-34); MEAN CORPUSCULAR HGB CONC 32.9 g/dl (32-36); RED CELL DISTRIBUTION WIDTH CV 18.4 % (11.5-14.5); RED CELL DISTRIBUTION WIDTH SD 61.7 fL (36.4-46.3); WHITE BLOOD COUNT 8.15 K/uL (4.8-10.8)
[2017-10-02 06:43] LABS: MEAN PLATELET VOLUME 9.1 fL (7.4-10.4); PLATELET COUNT 89 K/uL (130-400)
[2017-10-02 07:53] VITALS: BP 146/72; PULSE 73; TEMP 36.5; O2SAT 96
[2017-10-02] MEDS ORDERED: PANTOprazole SOD 40 MG TAB PO SCH (08:00)
[2017-10-02] MEDS: ESCITALOPRAM OXALATE 10 MG TAB PO SCH (08:22)
[2017-10-02] MEDS: MULTIVITAMIN TAB PO SCH (08:22)
[2017-10-02] MEDS: METOPROLOL TARTRATE 25 MG TAB PO SCH (08:22)
[2017-10-02] MEDS: AMLODIPINE BESYLATE 5 MG TAB PO SCH (08:23)
[2017-10-02] MEDS: ATORVASTATIN 40 MG TAB PO SCH (08:23)
[2017-10-02] MEDS: CHOLECALCIFEROL 1000 INTER.UNIT TAB PO SCH (08:24)
[2017-10-02] MEDS: CYANOCOBALAMIN 500 MCG TAB (VIT B-12) PO SCH (08:24)
[2017-10-02] MEDS: FERROUS SULFATE 325 MG TAB PO SCH (08:25)
[2017-10-02] MEDS: RIVAROXABAN TAB 15 MG TAB PO SCH (08:25)
[2017-10-02] MEDS: FUROSEMIDE 20 MG TAB PO SCH (08:25)
[2017-10-02] MEDS: POLYETHYLENE (MIRALAX) 17 GM PACK PO SCH (08:25)
[2017-10-02] MEDS: INSULIN ASPART 100 UNITS/ML 3 ML PEN SC SCH (08:28)
[2017-10-02] MEDS: SENNA 8.6 MG TAB PO SCH (08:32)
[2017-10-02] MEDS ORDERED: MRLP17 PO (10:41)
[2017-10-02] MEDS ORDERED: HLD.5 PO (10:41)
[2017-10-02] MEDS ORDERED: SENN-61 PO (10:41)
[2017-10-02] MEDS ORDERED: LXP10 PO (10:41)
[2017-10-02] MEDS ORDERED: FRRS300 PO (10:41)
[2017-10-02] MEDS ORDERED: PRT40 PO (10:41)
--- NOTE | 2017-10-02 10:48 | Discharge Instructions ---
Discharge Instructions Date of Service Oct 02, 2017. Admission Reason for Admission: Anemia, Hypoxia Discharge Discharge Diagnosis / Problem: anemia, hemorrhagic pleural effusion, Acute on chronic diastolic CHF Discharge Goals Goal(s): Diagnostic testing, Therapeutic intervention Activity Recommendations Activity Level: Assistance Required Therapies: Physical Therapy, Occupational Therapy . Additional Information Patient informed of condition: Yes Advance Directives: Yes DNR: No Level of Care: Skilled Communicable Disease: No Prognosis: Stable Fuchs Catheter: No Instructions / Follow-Up Instructions / Follow-Up 86 y/o female with a history of HTN, a-fib, sick sinus s/p pacemaker, hypothyroidism, DM II, CKD stage III, and recent type A aortic dissection s/p repair at [place] on 08/22/17 who presents with extreme fatigue beginning on the AM of admission and REY since her surgery. Fatigue, UTI--UIT resolved -Urine culture with E. coli and pseudomonas. Completed 7 days Cipro -TSH, dig WNL, flu negative Acute on chronic anemia--ongoing -Received 2 unit PRBC early this admission -Hgb 9.4 on 10/01 s/p 1 unit PRBC -Stool heme negative -Iron studies all low -Ferrous sulfate 325 mg PO BID -Likely due to bloody pleural effusions B/l pleural effusions - s/p thoracentesis on right--stable -Thoracentesis fluid grossly bloody, exudative -Likely secondary to recent aortic dissection repair -Pulmonology following, appreciate recs: have resumed Xarelto, no further procedures planned at this time. -Xarelto 15 mg PO qd resumed 09/30 Acute on chronic diastolic CHF--acute exacerbation resolved, chronic CHF stable -Resume Lasix 20 mg PO qd. -Continue Lopressor 25 mg PO BID HTN, HLD--stable -Continue Norvasc 10 mg PO qd, metoprolol as above, Lipitor 40 mg PO qd A-fib, h/o sick sinus s/p pacemaker--stable -Continue metoprolol as above, digoxin 125 mcg PO qd, Xarelto 15 mg PO qd DM II--HgbA1c 6.6 on 08/22/17 -Hold metformin -Insulin sliding scale -Check BSGs q ac and qhs Hypothyroidism -TSH WNL -Continue Synthroid 75 mcg PO qd CKD stage III--stable, baseline creatinine 1.0-1.2 Insomnia w/depression -Remeron stopped due to above -Continue Lexapro 5 mg PO qd -Haldol 0.5 mg PO hs DVT prophylaxis -Xarelto -SCDs Current Hospital Diet Patient's current hospital diet: AHA Diet (Heart Healthy), Diabetes Type 2 Diet Discharge Diet Recommended Diet: Regular Diet Pending Studies Studies pending at discharge: no Laboratory Results Hemoglobin A1c Test 08/22/17 13:18 Range/Units Estimated Average Glucose 143 mg/dl Hemoglobin A1c 6.6 H 4.5-5.6 % Medical Emergencies . Who to Call and When: Medical Emergencies: If at any time you feel your situation is an emergency, please call 911 immediately. . Non-Emergent Contact Non-Emergency issues call your: Primary Care Provider Call Non-Emergent contact if: temperature is above 101, your pain is unusual for you . . "Provider Documentation" section prepared by Cedric De La Garza. . Core Measure Problem Core Measures: None
--- NOTE | 2017-10-02 11:02 | Discharge Summary ---
Discharge Summary Date of Service Oct 02, 2017. Discharge Summary Admission Date: Sep 18, 2017 at 08:43 Discharge Date: Oct 02, 2017 Discharge Disposition: nursing home facility Principal Diagnosis: Fatigue, bilateral hemorrhagic pleural effusions Problems/Secondary Diagnoses: UTI, acute on chronic anemia, acute on chronic diastolic CHF, HTN, a-fib, sick sinus s/p pacemaker, hypothyroidism, DM II, CKD stage III, and recent type A aortic dissection s/p repair Immunizations: Have You Had Influenza Vaccine: Yes History of Tetanus Vaccine?: No History of Pneumococcal: Unknown History of Hepatitis B Vaccine: No Procedures: SINGLE VIEW CHEST CLINICAL HISTORY: Generalized weakness. FINDINGS: An AP, portable, upright chest radiograph is compared to study dated 08/22/2017. The examination is degraded by portable technique and patient rotation. A 2-lead cardiac pacemaker is unchanged in position and partially obscures the left mid chest. The patient is status post midline sternotomy. The heart is enlarged and there is atherosclerotic calcification of the thoracic aorta. There is pulmonary vascular congestion. Layering pleural effusions are identified with bibasilar consolidation. No pneumothorax is seen. The skeletal structures are osteopenic. The bony thorax is grossly intact. Surgical clips are noted in the right axilla. 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 IMPRESSION: 1. Cardiomegaly and cardiac pacemaker with evidence of congestive failure. 2. Pleural effusions with bibasilar consolidation. This likely represents atelectasis. Correlate clinically for evidence of superimposed pneumonia. CT SCAN OF THE CHEST WITHOUT IV CONTRAST CLINICAL HISTORY: Right-sided hemothorax. COMPARISON STUDY: Chest x-ray dated 09/23/2017. Chest CT 08/22/2017 and dated 01/10/2014. TECHNIQUE: CT scan of the thorax was performed from the thoracic inlet to the upper abdomen. Images are reviewed in the axial, sagittal, and coronal planes. IV contrast was not administered for this examination. A dose lowering technique was utilized adhering to the principles of ALARA. CT DOSE: 226.62 mGy.cm FINDINGS: Thyroid: Imaged portions of the thyroid gland are normal in size and attenuation. Thoracic aorta: There is evidence of graft repair of the aortic root and ascending thoracic aorta. There is no evidence of intramural hematoma or hyperdense/acute blood. The patient's dissection is not well evaluated without IV contrast. A presumed dissection flap is seen extending from the ascending thoracic aorta into the upper abdomen. The thoracic aorta is normal in caliber and the arch demonstrates standard 3-vessel anatomy. Heart: The patient is status post midline sternotomy. A 2-lead cardiac pacemaker is present in the left chest wall. The heart is enlarged and there is trace pericardial effusion. The coronary arteries are densely calcified. Postoperative changes suggested at the aortic valve. The pulmonary trunk is dilated, measuring up to 3.5 cm in diameter. This suggests pulmonary artery hypertension. Lungs and pleural spaces: There are moderate pleural effusions with associated atelectasis. These are simple in appearance. By apical scarring is observed. Diffuse subpleural reticulation suggests interstitial lung disease. No airspace consolidation is identified typical for pneumonia. There is no pneumothorax. The trachea and central airways are clear. Mediastinum: There is no mediastinal hematoma. Prominent mediastinal lymph nodes measure up to 12 mm short axis. There are calcified mediastinal nodes. Juliette: Not well assessed without IV contrast. Axillae: There is no axillary lymphadenopathy. Surgical clips are seen in the right axilla. Upper abdomen: There are numerous calcified splenic granulomas. A moderate hiatal hernia is observed. Calcified granulomas are also seen in the liver. A calcified splenic artery aneurysm measures up to 11 mm in diameter. Skeletal structures: The skeletal structures are osteopenic. Degenerative change and kyphoscoliosis are noted in the thoracic spine. Arthritic change is observed in the shoulders. No lytic or blastic bony lesions are seen. Soft tissues: The patient is cachectic. IMPRESSION: 1. Postoperative change in identified involving the aortic root and the ascending thoracic aorta. No intramural hematoma or hyperdense blood is identified. 2. A type A aortic dissection is again seen. This extends into the upper abdominal aorta. The dissection is not well evaluated without IV contrast. 3. There are moderate simple appearing bilateral pleural effusions with associated atelectasis. 4. There is no airspace consolidation typical for pneumonia. 5. Cardiomegaly and cardiac pacemaker. 6. Hiatal hernia. 7. Additional findings as above. Consultations: Pulmonology Hematology/oncology Medication Reconciliation New Medications: Escitalopram Oxalate (Escitalopram Oxalate) 10 Mg Tab 5 MG PO QAM, #30 TAB Ferrous Sulfate (Ferrous Sulfate) 325 Mg Tab 325 MG PO BID, #60 TAB Haloperidol (Haloperidol) 0.5 Mg Tab 0.5 MG PO HS, #30 TAB Pantoprazole (Pantoprazole Sodium) 40 Mg Tab 40 MG PO QAM, #30 TAB 5 Refills Polyethylene (Miralax) 17 Gm Pow 17 GM PO DAILY, #30 DOSE Senna (Senokot) 8.6 Mg Tab 17.2 MG PO QAM, #30 TAB Continued Medications: Amlodipine (Norvasc) 10 Mg Tab 10 MG PO DAILY, TAB Atorvastatin (Lipitor) 40 Mg Tab 40 MG PO DAILY, TAB Calcium Carbonate-Vitamin D (Calcium + D) 1 Tab Tab 1 TAB PO BID Cholecalciferol (Vitamin D 1000 Unit) 1,000 Unit Cap 1000 INTER.UNIT PO DAILY, CAP Cyanocobalamin (Vitamin B12) 1,000 Mcg Tab 1000 MCG PO QAM Digoxin (Digoxin) 0.125 Mg Tab 0.125 MG PO QPM Furosemide (Lasix) 20 Mg Tab 20 MG PO DAILY, TAB Levothyroxine Sodium (Levothyroxine Sodium) 75 Mcg Tab 75 MCG PO DAILYBB Metoprolol Tartrate (Lopressor) (Lopressor) 25 Mg Tab 25 MG PO BID, TAB Multiple Vitamin (Multivitamin) 1 Tab Tab 1 TAB PO DAILY, TAB Rivaroxaban (Xarelto) 10 Mg Tab 15 MG PO QPM Discontinued Medications: Metformin Hcl (Glucophage) 1,000 Mg Tab 500 MG PO BID Mirtazapine Soltab (Remeron Soltab) 15 Mg Soltab 7.5 MG PO HS, TAB Discharge Exam Patient reports feeling about the same. She continues to feel fatigued but she denies any chest pain or shortness of breath. Her hemoglobin at this point is remaining stable and she has been back on Xarelto for a few days. The patient denies fevers, chills, sweats, chest pain, palpitations, claudication, cough, wheezing, shortness of breath, nausea, vomiting, abdominal pain, dysuria, hematuria, urinary retention, paralysis, weakness, numbness and tingling. Constitutional: +Fatigue. No fever, No chills, No sweats Eyes: No worsening of vision, No eye pain, No diplopia ENT: No hearing loss, No nasal symptoms, No trouble swallowing Respiratory: No cough, No wheezing, No shortness of breath Cardiovascular: No chest pain, No claudication, No palpitations Abdomen: No pain, No nausea, No vomiting Musculoskeletal: No joint pain, No muscle pain, No swelling Genitourinary - Female: No dysuria, No urinary retention, No hematuria Neurologic: No paralysis, No weakness, No numbness/tingling Integumentary: No rash, No itch, No color change General appearance: Well-developed, well-nourished, no apparent distress Head: Normocephalic, atraumatic Eyes: Normal inspection, PERRL, EOMI ENT: Normal ENT inspection, hearing grossly normal, pharynx normal Neck: Supple, no JVD, trachea midline Respiratory/Chest: +Decreased breath sounds especially in bases bilaterally. Lungs clear to auscultation, no respiratory distress Cardiovascular: +Systolic murmur. Regular rate & rhythm, no gallop Abdomen/GI: Normal bowel sounds, non-tender, soft Extremities/Musculoskeletal: Normal inspection, no calf tenderness, no pedal edema Neurological/Psych: +Disoriented to time. Alert, normal mood/affect, oriented x 2 Skin: +Sternal scar. Normal color, warm/dry, no rash Hospital Course 86 y/o female with a history of HTN, a-fib, sick sinus s/p pacemaker, hypothyroidism, DM II, CKD stage III, and recent type A aortic dissection s/p repair at [place] on 08/22/17 who presents with extreme fatigue beginning on the AM of admission and REY since her surgery. Fatigue, UTI--UTI resolved, fatigue ongoing -Secondary to combination of recently started Remeron and/or UTI present on admission -Remeron d/c'd -Urine culture with E. coli and pseudomonas. Completed 7 days Cipro -TSH, dig WNL, flu negative Acute on chronic anemia--resolved -Received total 2 units PRBC this admission -Hgb stable at 9.2 on discharge -Stool heme negative -Iron studies all low -Ferrous sulfate 325 mg PO BID -Likely due to bloody pleural effusions B/l pleural effusions - s/p thoracentesis on right--stable -Thoracentesis fluid grossly bloody, exudative -Likely secondary to recent aortic dissection repair -Pulmonology following, appreciate recs: Ok to resume Xarelto, no further procedures planned at this time. -Xarelto 15 mg PO qd resumed 09/30 Acute on chronic diastolic CHF--acute exacerbation resolved, chronic CHF stable -Resume Lasix 20 mg PO qd -Continue Lopressor 25 mg PO BID HTN, HLD--stable -Continue Norvasc 10 mg PO qd, metoprolol as above, Lipitor 40 mg PO qd A-fib, h/o sick sinus s/p pacemaker--stable -Continue metoprolol as above, digoxin 125 mcg PO qd, Xarelto 15 mg PO qd DM II--HgbA1c 6.6 on 08/22/17 -Hold metformin, d/c'd at discharge -Insulin sliding scale -Check BSGs q ac and qhs Hypothyroidism -TSH WNL -Continue Synthroid 75 mcg PO qd CKD stage III--stable, baseline creatinine 1.0-1.2 Insomnia w/depression -Remeron stopped due to above -Continue Lexapro 5 mg PO qd -Haldol 0.5 mg PO hs DVT prophylaxis -Xarelto -SCDs Dispo -Medically stable for discharge to [facility] Physician Supervision Note: I interviewed and examined the patient. Discussed with Mckenzie WAYNE and agree with findings and plan as documented in the note. Any exceptions or clarifications are listed here: None Despite this long hospital stay the patient looks better than ever she continues to do very well she is improved dramatically after the institution of antidepressant therapy and previously from the removal of a hemorrhagic exudative pleural effusion which is likely felt to be postoperatively. She did require additional transfusion on 10/01 her hemoglobin has remained stable despite being on full anticoagulation with Xarelto Vital signs show her temperature 36 5 pulse 66 respirations 18 BP 119/67 O2 sat 96% on room air. Lungs and 0.2 at time of discharge Her cardiac exam sounds heard to be irregular her lungs are with decreased breath sounds at the bases now left greater than right Patient be discharged for longterm facility a subacute rehabilitation continued attention to her chronic anemia which is worsened slightly since she' s been in the hospital Documented By: Cedric De La Garza Total Time Spent: Greater than 30 minutes This includes examination of the patient, discharge planning, medication reconciliation, and communication with other providers. Discharge Instructions Please refer to the electronic Patient Visit Report (Discharge Instructions) for additional information. Additional Copies To Asa Chavez M.D.
[2017-10-02 11:05] VITALS: BP 146/72; PULSE 73; TEMP 36.5; O2SAT 96
== END 2017-10-02 11:32 | DRG 205 ==
LOC: EDBD 05:46 → C.EDB 05:49 → C.2T 08:43 → ENRESERV 11:21 → C.4E 09-20 18:14
PROVIDERS: ADMIT Internal Medicine; ATTEND Internal Medicine
PROC: 0W993ZZ Drainage of Right Pleural Cavity, Percutaneous Approach (ICD-10-PCS; principal; 2017-09-24)
DX: J95.89 Other postprocedural complications and disorders of respiratory system, not elsewhere classified (principal); Y83.8 Other surgical procedures as the cause of abnormal reaction of the patient, or of later complication, without mention of misadventure at the time of the procedure; I50.33 Acute on chronic diastolic (congestive) heart failure; G93.41 Metabolic encephalopathy; J90 Pleural effusion, not elsewhere classified; J94.2 Hemothorax; I13.0 Hypertensive heart and chronic kidney disease with heart failure and stage 1 through stage 4 chronic kidney disease, or unspecified chronic kidney disease; N39.0 Urinary tract infection, site not specified; D62 Acute posthemorrhagic anemia; E87.1 Hypo-osmolality and hyponatremia; B96.20 Unspecified Escherichia coli [E. coli] as the cause of diseases classified elsewhere; B96.5 Pseudomonas (aeruginosa) (mallei) (pseudomallei) as the cause of diseases classified elsewhere; M47.812 Spondylosis without myelopathy or radiculopathy, cervical region; K59.00 Constipation, unspecified; N18.3 Chronic kidney disease, stage 3 (moderate); I48.91 Unspecified atrial fibrillation; E03.9 Hypothyroidism, unspecified; E78.5 Hyperlipidemia, unspecified; G47.00 Insomnia, unspecified; F32.9 Major depressive disorder, single episode, unspecified; E11.22 Type 2 diabetes mellitus with diabetic chronic kidney disease; G31.84 Mild cognitive impairment of uncertain or unknown etiology; Z51.81 Encounter for therapeutic drug level monitoring; Z79.899 Other long term (current) drug therapy; Z79.01 Long term (current) use of anticoagulants; Z79.84 Long term (current) use of oral hypoglycemic drugs; Z98.890 Other specified postprocedural states; Z95.0 Presence of cardiac pacemaker; Z85.72 Personal history of non-Hodgkin lymphomas; Z86.73 Personal history of transient ischemic attack (TIA), and cerebral infarction without residual deficits

== ENCOUNTER → 2017-10-26 | Outpatient (CLI) | payer BC ==
[~2017-10-26] MED LIST changes: +AMLO-114 PO; +ATOR-24 PO; +CALC600T9 PO; +FRRS300 PO; +FURO-85 PO; +LXP10 PO; -METF-384 PO; +METO25TA56 PO; +MRLP17 PO; +PRT40 PO; -TPRSR50 PO
[2017-10-26 12:13] LABS: HEMATOCRIT 28.5 % (37-47); HEMOGLOBIN 9.4 g/dL (12.0-16.0); MEAN CELL VOLUME 99.3 fL (80-100); MEAN CORPUSCULAR HEMOGLOBIN 32.8 pg (25-34); RED CELL DISTRIBUTION WIDTH CV 20.1 % (11.5-14.5); RED CELL DISTRIBUTION WIDTH SD 70.6 fL (36.4-46.3); WHITE BLOOD COUNT 6.95 K/uL (4.8-10.8)
[2017-10-26 12:15] LABS: MEAN PLATELET VOLUME 9.2 fL (7.4-10.4); PLATELET COUNT 69 K/uL (130-400)
[2017-10-26 12:23] LABS: ALBUMIN 2.4 gm/dl (3.4-5.0); ALT/SGPT 16 U/L (12-78); BLOOD UREA NITROGEN 26 mg/dl (7-18); CALCIUM 9.1 mg/dl (8.5-10.1); CARBON DIOXIDE 26 mmol/L (21-32); GLUCOSE 106 mg/dl (70-99); POTASSIUM 4.4 mmol/L (3.5-5.1); SODIUM 136 mmol/L (136-145)
[2017-10-26 12:26] LABS: ALKALINE PHOSPHATASE 88 U/L (45-117); AST/SGOT 19 U/L (15-37)
[2017-10-26 12:39] LABS: BASO % 0.9 %; BASO ABS # 0.06 K/uL (0-0.2); EOS ABS # 1.04 K/uL (0-0.5); IG# 0.02 K/uL (0.00-0.02); LYMPH % 41.3 %; LYMPH ABS # 2.87 K/uL (1.2-3.4); MONO % 14.2 %; MONO ABS # 0.99 K/uL (0.11-0.59); NEUT % 28.3 %; NEUT ABS # 1.97 K/uL (1.4-6.5)
== END | disposition home or self-care (01) ==
LOC: C.LABSPEC 11:48
PROVIDERS: ATTEND Internal Medicine Hematology & Oncology
DX: C85.10 Unspecified B-cell lymphoma, unspecified site (principal)

== ENCOUNTER → 2017-11-08 | Outpatient (CLI) | payer BC ==
[2017-11-08 10:45] LABS: HEMOGLOBIN 8.6 g/dL (12.0-16.0); MEAN CELL VOLUME 105.5 fL (80-100); MEAN CORPUSCULAR HEMOGLOBIN 33.6 pg (25-34); MEAN CORPUSCULAR HGB CONC 31.9 g/dl (32-36); RED CELL DISTRIBUTION WIDTH CV 20.6 % (11.5-14.5); RED CELL DISTRIBUTION WIDTH SD 76.6 fL (36.4-46.3); WHITE BLOOD COUNT 7.16 K/uL (4.8-10.8)
[2017-11-08 10:53] LABS: MEAN PLATELET VOLUME 10.7 fL (7.4-10.4); PLATELET COUNT 83 K/uL (130-400)
[2017-11-08 11:04] LABS: BASO % 0.8 %; BASO ABS # 0.06 K/uL (0-0.2); EOS % 5.9 %; EOS ABS # 0.42 K/uL (0-0.5); IG# 0.04 K/uL (0.00-0.02); LYMPH % 64.7 %; LYMPH ABS # 4.63 K/uL (1.2-3.4); MONO % 12.6 %; NEUT % 15.4 %; NEUT ABS # 1.11 K/uL (1.4-6.5)
== END | disposition home or self-care (01) ==
LOC: C.LABSPEC 09:56
PROVIDERS: ATTEND Internal Medicine Geriatric Medicine
DX: D64.9 Anemia, unspecified (principal)

== ENCOUNTER → 2017-11-10 | Outpatient (CLI) | payer BC | END | disposition home or self-care (01) | LOC: C.LABSPEC 10:53 | PROVIDERS: ATTEND Physician Assistant Medical | DX: R32 Unspecified urinary incontinence (principal) ==

== ENCOUNTER → 2017-11-24 | Outpatient (CLI) | payer BC ==
[2017-11-24 11:28] LABS: BLOOD UREA NITROGEN 32 mg/dl (7-18); CALCIUM 9.6 mg/dl (8.5-10.1); CARBON DIOXIDE 27 mmol/L (21-32); CREATININE 1.35 mg/dl (0.60-1.20); GLUCOSE 112 mg/dl (70-99); POTASSIUM 4.3 mmol/L (3.5-5.1); SODIUM 139 mmol/L (136-145)
== END | disposition home or self-care (01) ==
LOC: C.LAB 13:22
PROVIDERS: ATTEND Internal Medicine Geriatric Medicine
DX: I10 Essential (primary) hypertension (principal); E03.9 Hypothyroidism, unspecified; D64.9 Anemia, unspecified; Z79.01 Long term (current) use of anticoagulants; C85.80 Other specified types of non-Hodgkin lymphoma, unspecified site

== ENCOUNTER → 2017-12-17 | Outpatient (CLI) | payer BC ==
[2017-12-17 10:49] LABS: BLOOD UREA NITROGEN 24 mg/dl (7-18); CALCIUM 8.5 mg/dl (8.5-10.1); CARBON DIOXIDE 29 mmol/L (21-32); GLUCOSE 132 mg/dl (70-99); POTASSIUM 3.8 mmol/L (3.5-5.1); SODIUM 138 mmol/L (136-145)
[2017-12-17 11:36] LABS: HEMOGLOBIN A1C 4.3 % (4.5-5.6)
== END | disposition home or self-care (01) ==
LOC: C.LAB 16:46
PROVIDERS: ATTEND Internal Medicine Geriatric Medicine
DX: E03.9 Hypothyroidism, unspecified (principal); N18.9 Chronic kidney disease, unspecified; E11.29 Type 2 diabetes mellitus with other diabetic kidney complication; I48.0 Paroxysmal atrial fibrillation; Z79.01 Long term (current) use of anticoagulants; I12.9 Hypertensive chronic kidney disease with stage 1 through stage 4 chronic kidney disease, or unspecified chronic kidney disease

== ENCOUNTER → 2018-03-18 | Outpatient (CLI) | payer BC, OTHER ==
[~2018-03-18] MED LIST changes: -AMLO-114 PO; +AMLO10TA3 PO; +KFL250 PO; +MELA1TAB5 PO; +PANT1TAB4 PO; -PRT40 PO
[2018-03-18 13:49] LABS: HEMOGLOBIN A1C 6.3 % (4.5-5.6)
[2018-03-18 13:57] LABS: BLOOD UREA NITROGEN 28 mg/dl (7-18); CALCIUM 8.7 mg/dl (8.5-10.1); CARBON DIOXIDE 25 mmol/L (21-32); CREATININE 1.21 mg/dl (0.60-1.20); GLUCOSE 141 mg/dl (70-99); SODIUM 139 mmol/L (136-145)
--- NOTE | 2018-04-09 13:12 | CODING QUERY NO DIAGNOSIS ---
Valid Physician Order Needed A valid physician order must be submitted in order to properly bill for the service(s) provided, including date of service(s), valid diagnosis, and physician signature. If these tests are done on a recurring basis the original physican order must be submitted in order to code and bill for the service(s) provided. Please fax us the original, signed physician order so that we may expedite billing to [phone] DOS 03/18/18 * HEMOGLOBIN A1C * PARTIAL RENAL PROFILE Thank you [facility] Information Management
== END | disposition home or self-care (01) ==
LOC: C.LABSPEC 16:37
PROVIDERS: ATTEND Physician Assistant Medical
DX: R53.83 Other fatigue (principal); R60.9 Edema, unspecified; N18.9 Chronic kidney disease, unspecified; E11.29 Type 2 diabetes mellitus with other diabetic kidney complication